=== PATIENT | female | born 1930 | race Caucasian/White ===

== ENCOUNTER → 2016-06-23 | Outpatient (CLI) | payer MEDICARE, BC ==
[~2016-06-23] MED LIST: CETI10CA; CHLO50TA15; DOCU-144; DULR; LISI20TA11; MAGN400O4; MELA3TAB17; OXYC-281; RTPRO5; TERI2.4P SC; TYL325; advair diskus; fleets enema
--- NOTE | 2016-06-23 09:13 | RADRPT ---
PROCEDURE: US Renal CLINICAL INDICATION: Hypertension, hyponatremia. TECHNIQUE: Multiple sonographic images of the kidneys and bladder were obtained. Evaluation of th e kidneys and bladder was performed as well with ricketts scale and color and Doppler evaluation using a curved array transducer. The images were reviewed on a high-resolution PACS workstation. COMPARISON: CT abdomen pelvis from 12/14/2013. FINDINGS: The right kidney measures 9.3 cm. The left kidney measures 9.6 cm. There is normal echogenicity within the parenchyma of the kidneys bilaterally. There are no masses or abnormal calcifications. There is an extrarenal pelvis on the left. This is seen on the CT is 12/14/2013. No definite hydronephrosis.. No perinephric fluid collection is seen. The patient was unable to void for this study. IMPRESSION: 1. Unremarkable renal ultrasound. No masses, abnormal calcifications or hydronephrosis. RPTAT: [facility] Physician Gopi Date Time Electronically viewed and signed by Physician Gopi on 06/23/2016 09:13 /
[2016-06-23 09:43] LABS: ADD UMIC YES; URINE BILIRUBIN (Dip) NEGATIVE (NEGATIVE); URINE BLOOD (Dip) NEGATIVE (NEGATIVE); URINE COLOR LT. YELLOW (YELLOW); URINE GLUCOSE (Dip) NEGATIVE (NEGATIVE); URINE KETONES (Dip) NEGATIVE (NEGATIVE); URINE LEUKOCYTE ESTERASE (Dip) 2+ (NEGATIVE); URINE NITRITE (Dip) NEGATIVE (NEGATIVE); URINE TOTAL PROTEIN (Dip) NEGATIVE (NEGATIVE); URINE UROBILINOGEN (Dip) 0.2 E.U./dL (0.1-1.0)
[2016-06-23 09:45] LABS: BASOPHILS % 0.8 % (0.0-2.0); EOSINOPHILS # 0.2 10^3/ul (0.0-0.5); EOSINOPHILS % 3.3 % (0.0-7.0); HEMATOCRIT 32.2 % (37.0-47.0); HEMOGLOBIN 10.8 g/dl (12.0-16.0); LYMPHOCYTES # 0.7 10^3/ul (0.8-2.9); LYMPHOCYTES % 14.6 % (15.0-51.0); MEAN CORPUSCULAR HEMOGLOBIN 29.4 pg (29.0-33.0); MEAN CORPUSCULAR HGB CONC 33.7 g/dl (32.0-37.0); MEAN CORPUSCULAR VOLUME 87.3 fl (82.0-101.0); MEAN PLATELET VOLUME 5.7 fl (7.4-10.4); MONOCYTE # 0.3 10^3/ul (0.3-0.9); MONOCYTES % 6.5 % (0.0-11.0); NEUTROPHIL # 3.7 10^3/ul (1.6-7.5); NEUTROPHILS % 74.8 % (39.0-77.0); PLATELET COUNT 381 10^3/UL (140-440); RED BLOOD COUNT 3.69 10^6/ul (4.20-5.40)
[2016-06-23 09:50] LABS: ALBUMIN 3.9 g/dl (3.3-4.9); CHLORIDE 99 mmol/L (97-110); CONDITION 1; POTASSIUM 4.2 mmol/L (3.5-5.1); SODIUM 136 mmol/L (135-144)
[2016-06-23 09:52] LABS: CREATININE 0.72 mg/dl (0.44-1.00)
[2016-06-23 09:53] LABS: ALANINE AMINOTRANSFERASE 28 IU/L (13-69); ALBUMIN/GLOBULIN RATIO 1.18; ALKALINE PHOSPHATASE 48 IU/L (42-121); ANION GAP 14 (8-16); ASPARTATE AMINO TRANSFERASE 28 IU/L (15-46); BILIRUBIN,INDIRECT 0.6 mg/dl (0-1.1); BILIRUBIN,TOTAL 0.6 mg/dl (0.2-1.3); BLOOD UREA NITROGEN 11 mg/dl (7-20); CARBON DIOXIDE 27 mmol/L (21-31); GLUCOSE 85 mg/dl (70-220); TOTAL PROTEIN 7.2 g/dl (6.1-8.1)
[2016-06-23 09:54] LABS: CALCIUM 9.2 mg/dl (8.4-10.2)
[2016-06-23 10:01] LABS: URINE RBCS NONE SEEN /HPF ([, 0])
[2016-06-23 10:02] LABS: BACTERIA,URINE FEW
--- NOTE | 2016-06-23 11:06 | RADRPT ---
PROCEDURE: US Pelvis. CLINICAL INDICATION: Pelvic pain. Hypertension and hyponatremia. TECHNIQUE: The pelvis was evaluated with transabdominal sonography in the axial and sagittal plane s. COMPARISON: No prior study is available for comparison. FINDINGS: This is a limited study with the uterus and ovaries not visualized. There is no large pelvic mass o r free fluid. IMPRESSION: 1. Limited study. Uterus and ovaries not visualized. 2. No large pelvic mass or free fluid. RPTAT: QQ .Ancelmo Masters MD, Date Time Electronically viewed and signed by .Ancelmo Masters MD, on 06/23/2016 11:06 .R/
[2016-06-24 14:51] LABS: MICROALBUMIN 0.8 mg/dL
== END | disposition home or self-care (01) ==
LOC: U/S 07:57
PROVIDERS: ATTEND Internal Medicine Nephrology
DX: I12.9 Hypertensive chronic kidney disease with stage 1 through stage 4 chronic kidney disease, or unspecified chronic kidney disease (principal); E87.1 Hypo-osmolality and hyponatremia; N18.9 Chronic kidney disease, unspecified; R10.2 Pelvic and perineal pain
CPT/HCPCS: 76775; 76856; 80053; 81001; 81003; 82043; 82652; 83930; 83935; 84300; 84443; 85025

== ENCOUNTER 2018-12-21 09:16 | Inpatient (IN) | payer BC, MEDICARE ==
[~2018-12-21] VITALS: Ht 165.1 cm; Wt 65.0 kg
[~2018-12-21 09:16] MED LIST changes: +BISA10SU75; -CHLO50TA15; -DULR; +HYG50; +LISI-471; -LISI20TA11; +MAGN400O19; -MAGN400O4
[2018-12-21] MEDS ORDERED: AZITHROMYCIN 500MG/NS (PMX) 250 ML IV STA (09:28)
[2018-12-21] MEDS ORDERED: SOD CHLORIDE 0.9% 500 ML IV STA (09:28)
[2018-12-21] MEDS ORDERED: CEFTRIAXONE 1 GM/50 ML (PMX) 50 ML IVPB STA (09:28)
[2018-12-21] MEDS ORDERED: ALBUTEROL 0.083% (NEB) 2.5 MG/3 ML AMP INH ONE (09:30)
[2018-12-21] MEDS ORDERED: IPRATROPIUM (NEB) 0.5 MG/2.5 ML AMP INH ONE (09:30)
[2018-12-21] MEDS ORDERED: ALEN70TA5 PO (11:56)
[2018-12-21] MEDS ORDERED: LOSA100T15 PO (11:57)
[2018-12-21] MEDS ORDERED: METO-319 PO (11:57)
[2018-12-21] MEDS ORDERED: SPIR25TA PO (11:58)
[2018-12-21] MEDS ORDERED: TIOT18CA INHALATION (11:58)
[2018-12-21] MEDS ORDERED: GABA-526 PO (11:59)
[2018-12-21] MEDS ORDERED: ONDANSETRON 4 MG INJ IV PRN ×2 (12:00→16:00)
[2018-12-21] MEDS ORDERED: ACETAMINOPHEN 325 MG TAB PO PRN (12:00)
[2018-12-21] MEDS ORDERED: ALBU90AE INHALATION (12:04)
--- NOTE | 2018-12-21 12:20 | ERD ---
ER Documentation Chief Complaint Chief Complaint sob and coughing with congestion for a few days. low room air sats. no cp HPI Very pleasant 88-year-old female with a history of COPD who presents to the emergency room with several days of generalized malaise, subjective fevers and productive cough. The patient notes approximately 1 week of symptoms but not better with oral antibiotics. She does not know the name of the antibiotic. EMS notes the patient's oxygen saturation was in the mid 80s on room air. The patient denies any chest pain or pleuritic pain. ROS All systems reviewed and are negative except as per history of present illness. Medications Home Meds Reported Medications Albuterol Sulfate (Proair Respiclick) 90 Mcg Aer.pow.ba, 1 PUFF INHALATION Q4 PRN for SHORTNESS OF BREATH, #1 BOTTLE 12/21/18 Gabapentin* (Gabapentin*) 600 Mg Tablet, 600 MG PO TID, #90 TAB 12/21/18 Tiotropium [place]* (Spiriva*) 18 Mcg Cap.w.dev, 1 CAP INHALATION DAILY, #30 CAP 12/21/18 Spironolactone* (Aldactone*) 25 Mg Tablet, 25 MG PO DAILY, #30 TAB 12/21/18 Losartan Potassium* (Losartan Potassium*) 100 Mg Tablet, 100 MG PO DAILY, TAB 12/21/18 Metoprolol Succinate* (Toprol XL*) 50 Mg Tab.er.24h, 50 MG PO DAILY, #30 TAB 12/21/18 Alendronate Sodium* (Fosamax*) 70 Mg Tablet, 70 MG PO Q7D, #4 TAB 12/21/18 Discontinued Reported Medications Albuterol Sulfate* (Proventil* Neb) 0.5% Nebu 12/14/13 Melatonin (Melatonin) 3 Mg Tablet.sa, prn 12/14/13 Acetaminophen* (Acetaminophen*) 325 Mg Tab 12/14/13 Oxycodone Hcl-Acetaminophen* (Percocet*) 5-325 Mg Tablet 12/14/13 Oxycodone Hcl-Acetaminophen* (Percocet*) 5-325 Mg Tablet, prn 12/14/13 Magnesium Hydroxide* (Milk Of Magnesia*) 400 Mg/5 Ml Oral.susp, prn 12/14/13 [fleets enema] No Conflict Check 12/14/13 Bisacodyl* (Bisacodyl*) 10 Mg Supp, daily 12/14/13 Cetirizine Hcl* (Zyrtec*) 10 Mg Capsule, 10mg 12/14/13 Lisinopril* (Lisinopril*) 20 Mg Tablet, daily 12/14/13 Teriparatide (Forteo) 2.4 Ml Pen.injctr, SC daily 12/14/13 Docusate Sodium* (Colace*) 100 Mg Capsule, daily 12/14/13 Chlorthalidone* (Chlorthalidone*) 50 Mg Tablet, q daily 12/14/13 [advair diskus] No Conflict Check, daily 12/14/13 Allergies Allergies: Coded Allergies: Penicillins (Verified Allergy, Severe, RASH, 12/21/18) codeine (Verified Allergy, Unknown, 12/21/18) PMhx/Soc History of Surgery: Yes (s/p ORIF 09/2013 RLE) Anesthesia Reaction: No Hx Neurological Disorder: Yes (NEUROPATHY BOTH FEET) Hx Respiratory Disorders: Yes (ASTHMA, COPD) Hx Cardiac Disorders: Yes (PT. HAS HYPERTENSION) Hx Psychiatric Problems: No Hx Miscellaneous Medical Probl: Yes (HTN, osteoporosis, UTI, asthma, neuropathy) Hx Alcohol Use: Yes (SOBER FOR 19 YRS.) Hx Substance Use: No Hx Tobacco Use: No Smoking Status: Never smoker FmHx Family History: No diabetes Physical Exam Vitals Vital Signs Date Temp Pulse Resp B/P (MAP) Pulse Ox O2 O2 Flow FiO2 Time Delivery Rate 12/21/18 Nasal 10:19 Cannula 12/21/18 86 20 90 21 10:02 12/21/18 98.8 90 20 170/80 98 09:34 (110) Physical Exam General: Well developed, well nourished, no acute distress Head: Normocephalic, atraumatic. Eyes: Pupils equally reactive, EOM intact ENT: Moist mucous membranes Neck: Supple, no lymphadenopathy Respiratory: fairly significant wheezing and rhonchi but no significant distress Cardiovascular: RRR, no murmurs, rubs, or gallops Abdominal: Soft, non-tender, non-distended, no peritoneal signs : Deferred MSK: No edema, no unilateral swelling, 5/5 strength Neurologic: Alert and oriented, moving all extremities, normal speech, no focal weakness, no cerebellar signs Skin: No rash Psych: Normal mood Result Diagram: 7/5/19 1014 12/21/18 1014 Results 24 hrs Laboratory Tests Test 12/21/18 10:14 12/21/18 11:26 White Blood Count 7.4 10^3/ul Red Blood Count 4.17 10^6/ul Hemoglobin 12.3 g/dl Hematocrit 36.0 % Mean Corpuscular Volume 86.3 fl Mean Corpuscular Hemoglobin 29.5 pg Mean Corpuscular Hemoglobin Concent 34.2 g/dl Red Cell Distribution Width 13.4 % Platelet Count 355 10^3/UL Mean Platelet Volume 7.9 fl Immature Granulocytes % 0.400 % Neutrophils % 77.3 % Lymphocytes % 9.5 % Monocytes % 7.6 % Eosinophils % 4.3 % Basophils % 0.9 % Nucleated Red Blood Cells % 0.0 /100WBC Immature Granulocytes # 0.030 10^3/ul Neutrophils # 5.7 10^3/ul Lymphocytes # 0.7 10^3/ul Monocytes # 0.6 10^3/ul Eosinophils # 0.3 10^3/ul Basophils # 0.1 10^3/ul Nucleated Red Blood Cells # 0.0 10^3/ul Sodium Level 124 mmol/L Potassium Level 4.5 mmol/L Chloride Level 85 mmol/L Carbon Dioxide Level 27 mmol/L Anion Gap 12 Blood Urea Nitrogen 8 mg/dl Creatinine 0.54 mg/dl Est Glomerular Filtrat Rate mL/min mL/min Glucose Level 126 mg/dl Calcium Level 8.9 mg/dl Troponin I < 0.012 ng/ml Lactic Acid Level 0.9 mmol/L Current Medications Medications Dose Sig/Rashad Start Time Status Last (Trade) Ordered Route PRN Stop Time Admin Dose Reason Admin Sodium 500 ml @ Q1H STAT 12/21/18 DC 12/21/18 Chloride 500 mls/hr IV 09:28 12/21/18 10:40 10:27 Albuterol 2.5 mg ONCE ONCE 12/21/18 DC 12/21/18 (Proventil INH 09:30 12/21/18 10:01 0.083% (Neb)) 09:31 Ipratropium 0.5 mg ONCE ONCE 12/21/18 DC 12/21/18 [place] INH 09:30 12/21/18 10:01 (Atrovent 09:31 0.02% (Neb)) Azithromycin 250 ml @ ONCE STAT 12/21/18 DC 12/21/18 250 mls/hr IV 09:28 12/21/18 11:30 10:27 Ceftriaxone 50 ml @ ONCE STAT 12/21/18 DC 12/21/18 Sodium 100 mls/hr IVPB 09:28 12/21/18 10:41 09:57 Ondansetron 4 mg BRIDGE ORDER 12/21/18 HCl (Zofran PRN IV 12:00 12/22/18 Inj) NAUSEA/VOMITI 11:59 NG 650 mg ER BRIDGE 12/21/18 Acetaminophen PRN PO 12:00 12/22/18 (Tylenol .MILD PAIN 11:59 Tab) 1-3 OR TEMP Procedures/MDM EKG, MONITORS, & DIAGNOSTIC IMAGING: EKG: I reviewed and interpreted a 12-lead EKG. Rhythm: Normal sinus rhythm ST Changes: No contiguous ST segment elevations T waves: No contiguous T wave inversions Impression: No evidence of acute cardiac ischemia cxr IMPRESSION: Hypoventilatory changes with bibasilar opacities favoring atelectasis, including alongside moderate hiatal hernia.. No definite superimposed infiltrate or overt CHF. No pneumothorax. Aortic atherosclerotic calcification. RPTAT: [facility] LAB INTERPRETATION: I reviewed the laboratory testing and it shows no evidence of acute process MEDICAL DECISION MAKING: The patient's presentation is very consistent with likely COPD exacerbation with possible community acquired pneumonia. The patient does not have Sirs criteria. However, the patient will benefit from IV antibiotics, blood cultures and inpatient hospitalization. Patient's low oxygen saturation makes outpatient treatment unlikely. ER COURSE: * The patient continues to be well-appearing, she received breathing treatment, steroids. * The patient's laboratory testing is reassuring. The patient received broad- spectrum antibiotics to cover community acquired pneumonia. * Again, patient does not meet sepsis criteria in the emergency room setting. IV fluids initiated. Blood cultures prior to antibiotics. CONSULTATION: None DISPOSITION PLAN: Accepting care team and consultations: I discussed the current laboratory data, diagnostic imaging and emergency care provided. Admitting team: Panel team Admitting team indication: Insurance directed Departure Diagnosis: Primary Impression: COPD with exacerbation Additional Impressions: Community acquired pneumonia Laterality: unspecified laterality Qualified Codes: J18.9 - Pneumonia, unspecified organism Hyponatremia Condition: Stable ALLISON CALVILLO MD Dec 21, 2018 12:19
[2018-12-21] MEDS ORDERED: DEXAMETHASONE 10 MG/ML 1 ML INJ IV ONE (12:30)
[2018-12-21 13:43] VITALS: BP 161/79; PULSE 100; RESP 22
[2018-12-21 15:32] VITALS: Ht 165.1 cm; Wt 65.0 kg
[2018-12-21] MEDS ORDERED: NACL 0.9% 3 ML SYG IV SCH (16:00)
--- NOTE | 2018-12-21 16:05 | HP ---
Date/Time of Note Date/Time of Note DATE: 12/21/18 TIME: 15:56 Assessment/Plan VTE Prophylaxis Pharmacological prophylaxis: heparin Lines/Catheters IV Catheter Type (from [facility]): Saline Lock Assessment/Plan Hospital Course Assessment and plan 1. COPD with exacerbation. Started on breathing treatments. Will consider starting steroid medication should breathing worsen. Continue on O2. Monitor for improvement. 2. Community acquired pneumonia. Started on antibiotics. Follow-up chest imaging as needed. Will check sputum cultures. Antitussives as needed for cough 3. Reported history of asthma and allergies. continue bronchodilators 4. History of neuropathy. Continue Neurontin. 5. Hypertension. Continue antihypertensives. Will adjust as needed 6. Dyspnea secondary to #1 #2. Follow-up on echo. Continue on O2. Patient with suspected cardiac history. Discussed POC with Dr. Green Result Diagram: 12/21/18 1014 12/21/18 1014 Results 24hrs Laboratory Tests Test 12/21/18 10:14 12/21/18 11:26 12/21/18 13:37 White Blood Count 7.4 # Red Blood Count 4.17 L Hemoglobin 12.3 Hematocrit 36.0 L Mean Corpuscular Volume 86.3 Mean Corpuscular Hemoglobin 29.5 Mean Corpuscular Hemoglobin Concent 34.2 Red Cell Distribution Width 13.4 Platelet Count 355 Mean Platelet Volume 7.9 # Immature Granulocytes % 0.400 Neutrophils % 77.3 H Lymphocytes % 9.5 L Monocytes % 7.6 Eosinophils % 4.3 Basophils % 0.9 Nucleated Red Blood Cells % 0.0 Immature Granulocytes # 0.030 Neutrophils # 5.7 Lymphocytes # 0.7 L Monocytes # 0.6 Eosinophils # 0.3 Basophils # 0.1 Nucleated Red Blood Cells # 0.0 Sodium Level 124 L Potassium Level 4.5 Chloride Level 85 L Carbon Dioxide Level 27 Anion Gap 12 Blood Urea Nitrogen 8 Creatinine 0.54 Est Glomerular Filtrat Rate mL/min Glucose Level 126 Calcium Level 8.9 Troponin I < 0.012 Lactic Acid Level 0.9 1.2 HPI/ROS Admit Date/Time Admit Date/Time Dec 21, 2018 at 11:58 Hx of Present Illness This is an 88-year-old female with history of asthma, flu B, hypertension, neuropathy, allergies, came to the hospital with reports of decreased breath. Patient reports that she had been having cough for the past 3 months but notably increased shortness of breath more notable on exertion for the past week. Associated with that she also had decreased poor oral intake. She denies any chest pain. She denies any subjective fevers. Due to worsening of breathing she came to the hospital for further evaluation. She did have chest x-ray done that did show to have elevated liver changes and bibasilar opacities. Findings suspect consistent with pneumonia. Denies any history of heart failure. On labs no leukocytosis noted. No fever seen as well. She was slightly hypertensive with blood pressure as high as 161/79. During interview she was notably with wheezing and reactive cough. She does report that her breathing since her breathing treatments in the ER. We will evaluate her for the aformentiond issues. ROS 12 point review of systems obtained and entirely negative except as mentioned in history of present illness PMH/Family/Social Past Medical History Medical/surgical history 1. Asthma 2. COPD 3. Seasonal allergies 4. Right femur fracture status post surgery 5. Neuropathy 6. Uterine prolapse Medications Current Medications Ondansetron HCl (Zofran Inj) 4 mg BRIDGE ORDER PRN IV NAUSEA/VOMITING; Start 12/21/18 at 12:00; Stop 12/22/18 at 11:59 Acetaminophen (Tylenol Tab) 650 mg ER BRIDGE PRN PO .MILD PAIN 1-3 OR TEMP; Start 12/21/18 at 12:00; Stop 12/22/18 at 11:59 Alendronate Sodium (Fosamax) 70 mg Q7D PO ; Start 12/21/18 at 16:00; Status UNV Gabapentin (Neurontin) 600 mg TID PO ; Start 12/21/18 at 21:00 Losartan Potassium (Cozaar) 100 mg DAILY PO ; Start 12/22/18 at 09:00 Metoprolol Succinate (Toprol Xl) 50 mg DAILY PO ; Start 12/22/18 at 09:00 Spironolactone (Aldactone) 25 mg DAILY PO ; Start 12/22/18 at 09:00 Tiotropium [place] (Spiriva) 1 inh DAILY INH ; Start 12/22/18 at 09:00 IV Flush (NS 3 ml) 3 ml PER PROTOCOL IV ; Start 12/21/18 at 16:00; Status UNV Ondansetron HCl (Zofran Inj) 4 mg Q6H PRN IV NAUSEA/VOMITING; Start 12/21/18 at 16:00; Status UNV Acetaminophen (Tylenol Tab) 650 mg Q6H PRN PO .PAIN 1-3 OR TEMP; Start 12/21/18 at 16:00; Status UNV Famotidine (Pepcid Iv) 20 mg Q12 IV ; Start 12/22/18 at 09:00; Status UNV Heparin Sodium (Porcine) (Heparin (5000 Units/1ml)) 5,000 unit Q8 SC ; Start 12/21/18 at 22:00; Status UNV Levofloxacin/ Dextrose 150 ml @ 100 mls/hr Q24H IVPB ; Start 12/21/18 at 16:00; Status UNV Albuterol/ Ipratropium (Duoneb) 3 ml Q6HWA RESP THERAPY HHN ; Start 12/21/18 at 20:00; Status UNV Albuterol/ Ipratropium (Duoneb) 3 ml Q2H RESP THERAPY PRN HHN sob; Start 12/21/18 at 16:00; Status UNV Guaifenesin (Robitussin Liquid Cup) 200 mg Q4H PRN PO cough; Start 12/21/18 at 16:00; Status UNV Coded Allergies: Penicillins (Verified Allergy, Severe, RASH, 12/21/18) codeine (Verified Allergy, Unknown, 12/21/18) Family History Significant Family History: no pertinent family hx Social History Alcohol Use: other (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) Smoking Status: Never smoker Exam/Review of Systems Vital Signs Vitals Vital Signs Date Temp Pulse Resp B/P (MAP) Pulse Ox O2 O2 Flow FiO2 Time Delivery Rate 12/21/18 98.4 100 22 161/79 91 13:43 (106) 12/21/18 Nasal 3.0 12:56 Cannula 12/21/18 21 10:02 Exam Constitutional: alert, oriented Psych: nl mood/affect Head: normocephalic Eyes: nl conjunctiva Neck: supple, non-tender Respiratory: clear to auscultation Cardiovascular: regular rate and rhythm Gastrointestinal: soft, non-tender Musculoskeletal: nl extremities to inspection Neurological: AIRWAY CONTROLLER II-XII intact, nl mental status, nl speech Skin: other (rash under left/right breast ) ARLETTE CHRISTY NP Dec 21, 2018 16:05
[2018-12-21] MEDS ORDERED: LEVOFLOXACIN 750MG/D5W (PMX) 150 ML IVPB SCH (17:00)
[2018-12-21] MEDS: SOD CHLORIDE 0.9% 1,000 ML IV SCH (17:18)
[2018-12-21] MEDS: ACETAMINOPHEN 325 MG TAB PO PRN ×2 (17:19→23:35)
[2018-12-21 19:34] VITALS: BP 144/73; PULSE 96; RESP 15
[2018-12-21] MEDS ORDERED: ALBUTEROL/IPRATROPIUM (NEB) 3 ML AMP HHN SCH (20:00)
[2018-12-21] MEDS: GABAPENTIN 300 MG CAP PO SCH (21:00)
[2018-12-21] MEDS: NYSTATIN 30 GM POWDER BTL TOP SCH (21:01)
[2018-12-21] MEDS: ALBUTEROL/IPRATROPIUM (NEB) 3 ML AMP HHN SCH (21:04)
[2018-12-21] MEDS: GUAIFENESIN 20 MG/ML 5ML CUP PO PRN (21:26)
[2018-12-21] MEDS: HEPARIN 5,000 UNIT/1 ML VIAL SC SCH (21:29)
[2018-12-22] MEDS: ALBUTEROL/IPRATROPIUM (NEB) 3 ML AMP HHN SCH ×4 (01:49→22:30)
[2018-12-22 02:06] VITALS: BP 137/71; PULSE 96; RESP 16
[2018-12-22] MEDS: HEPARIN 5,000 UNIT/1 ML VIAL SC SCH ×3 (05:54→21:39)
[2018-12-22] MEDS: SOD CHLORIDE 0.9% 1,000 ML IV SCH ×3 (06:18→20:36)
[2018-12-22] MEDS ORDERED: VANCOMYCIN IV PER PHARMACY XX SCH (07:00)
[2018-12-22 07:40] VITALS: BP 154/73; PULSE 91; RESP 20
[2018-12-22] MEDS: FLUTICASONE/VILANTEROL 100-25 INH SCH (08:54)
[2018-12-22] MEDS: SPIRONOLACTONE 25 MG TAB PO SCH (08:54)
[2018-12-22] MEDS: GABAPENTIN 300 MG CAP PO SCH ×3 (08:54→21:36)
[2018-12-22] MEDS: TIOTROPIUM 18 MCG CAPSULE INHA DEV INH SCH (08:54)
[2018-12-22] MEDS: FAMOTIDINE 20 MG INJ IV SCH ×2 (08:54→21:35)
[2018-12-22] MEDS: LOSARTAN 50 MG TAB PO SCH (08:55)
[2018-12-22] MEDS: METOPROLOL (XL) 50 MG TAB PO SCH (08:55)
[2018-12-22] MEDS: NYSTATIN 30 GM POWDER BTL TOP SCH ×2 (08:56→21:36)
[2018-12-22] MEDS ORDERED: VANCOMYCIN HCL 1.25 GM in SOD CHLORIDE 0.9% 250 ML IVPB SCH (09:00)
[2018-12-22] MEDS: ALBUTEROL/IPRATROPIUM (NEB) 3 ML AMP HHN PRN (10:37)
[2018-12-22 13:14] VITALS: BP 143/67; PULSE 94; RESP 19
[2018-12-22] MEDS: SODIUM CHLORIDE 1 GM TAB PO SCH ×2 (13:23→21:35)
--- NOTE | 2018-12-22 13:57 | PN ---
Date/Time of Note Date/Time of Note DATE: 12/22/18 TIME: 13:52 Assessment/Plan VTE Prophylaxis Risk score (from Ns)>0 risk: 7 SCD applied (from Ns): Yes Pharmacological prophylaxis: heparin Lines/Catheters IV [facility] Saline Lock Urinary Cath still in place: No Assessment/Plan Hospital Course Assessment and plan 1. COPD with exacerbation. continue on breathing treatments. Will consider starting steroid medication should breathing worsen. Continue on O2. Monitor for improvement. 2. Community acquired pneumonia. Started on antibiotics. Follow-up chest i maging as needed. sputum cultures pending. Antitussives as needed for cough 3. Reported history of asthma and allergies. continue bronchodilators 4. History of neuropathy. Continue Neurontin. 5. Hypertension. Continue antihypertensives. Will adjust as needed 6. Dyspnea secondary to #1 #2. Follow-up on echo. Continue on O2. Patient with suspected cardiac history. Dispo/Plan: continue breathing tx. continue antitussives. PT eval pending. monitor for improvement Discussed POC with Dr. Green Result Diagram: 12/22/18 0509 12/22/18 0509 Results 24hrs Laboratory Tests Test 12/22/18 05:09 White Blood Count 4.6 #L Red Blood Count 3.88 L Hemoglobin 11.5 L Hematocrit 33.0 L Mean Corpuscular Volume 85.1 Mean Corpuscular Hemoglobin 29.6 Mean Corpuscular Hemoglobin Concent 34.8 Red Cell Distribution Width 13.3 Platelet Count 320 Mean Platelet Volume 8.2 Immature Granulocytes % 0.900 H Neutrophils % 73.8 Lymphocytes % 11.9 L Monocytes % 13.0 H Eosinophils % 0.0 Basophils % 0.4 Nucleated Red Blood Cells % 0.0 Immature Granulocytes # 0.040 H Neutrophils # 3.4 Lymphocytes # 0.5 L Monocytes # 0.6 Eosinophils # 0.0 Basophils # 0.0 Nucleated Red Blood Cells # 0.0 Sodium Level 125 L Potassium Level 4.1 Chloride Level 90 L Carbon Dioxide Level 24 Anion Gap 11 Blood Urea Nitrogen 7 Creatinine 0.55 Est Glomerular Filtrat Rate mL/min Glucose Level 108 Hemoglobin A1c 5.0 Calcium Level 8.6 Phosphorus Level 2.6 Magnesium Level 1.8 Total Bilirubin 0.8 Direct Bilirubin 0.00 Indirect Bilirubin 0.8 Aspartate Amino Transf (AST/SGOT) 28 Alanine Aminotransferase (ALT/SGPT) 28 Alkaline Phosphatase 41 L Total Protein 6.7 Albumin 3.6 Globulin 3.10 Albumin/Globulin Ratio 1.16 Triglycerides Level 46 Cholesterol Level 125 LDL Cholesterol, Calculated 49 HDL Cholesterol 67 Cholesterol/HDL Ratio 1.8 Thyroid Stimulating Hormone (TSH) 1.480 Free Thyroxine Index 2.69 Thyroxine (T4) 6.7 Triiodothyronine (T3) Uptake 40.1 Subjective 24 Hr Interval Summary Free Text/Dictation with better breathing. no s/s of distress Exam/Review of Systems Exam Vitals Vital Signs Date Temp Pulse Resp B/P (MAP) Pulse Ox O2 O2 Flow FiO2 Time Delivery Rate 12/22/18 98.7 94 19 143/67 94 13:14 (92) 12/22/18 2.0 10:39 12/22/18 Nasal 10:39 Cannula 12/21/18 21 10:02 Intake and Output 12/21/18 12/21/18 12/22/18 1515:00 23:00 07:00 IntakeIntake Total 800 ml 390 ml 700 ml BalanceBalance 800 ml 390 ml 700 ml Exam Constitutional: alert, oriented Psych: nl mood/affect Head: normocephalic Eyes: nl conjunctiva Neck: supple, non-tender Respiratory: clear to auscultation Cardiovascular: regular rate and rhythm Gastrointestinal: soft, non-tender Musculoskeletal: nl extremities to inspection 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, nl mental status, nl speech Skin: other (rash under left/right breast ) Results Results 24hrs Laboratory Tests Test 12/22/18 05:09 White Blood Count 4.6 #L Red Blood Count 3.88 L Hemoglobin 11.5 L Hematocrit 33.0 L Mean Corpuscular Volume 85.1 Mean Corpuscular Hemoglobin 29.6 Mean Corpuscular Hemoglobin Concent 34.8 Red Cell Distribution Width 13.3 Platelet Count 320 Mean Platelet Volume 8.2 Immature Granulocytes % 0.900 H Neutrophils % 73.8 Lymphocytes % 11.9 L Monocytes % 13.0 H Eosinophils % 0.0 Basophils % 0.4 Nucleated Red Blood Cells % 0.0 Immature Granulocytes # 0.040 H Neutrophils # 3.4 Lymphocytes # 0.5 L Monocytes # 0.6 Eosinophils # 0.0 Basophils # 0.0 Nucleated Red Blood Cells # 0.0 Sodium Level 125 L Potassium Level 4.1 Chloride Level 90 L Carbon Dioxide Level 24 Anion Gap 11 Blood Urea Nitrogen 7 Creatinine 0.55 Est Glomerular Filtrat Rate mL/min Glucose Level 108 Hemoglobin A1c 5.0 Calcium Level 8.6 Phosphorus Level 2.6 Magnesium Level 1.8 Total Bilirubin 0.8 Direct Bilirubin 0.00 Indirect Bilirubin 0.8 Aspartate Amino Transf (AST/SGOT) 28 Alanine Aminotransferase (ALT/SGPT) 28 Alkaline Phosphatase 41 L Total Protein 6.7 Albumin 3.6 Globulin 3.10 Albumin/Globulin Ratio 1.16 Triglycerides Level 46 Cholesterol Level 125 LDL Cholesterol, Calculated 49 HDL Cholesterol 67 Cholesterol/HDL Ratio 1.8 Thyroid Stimulating Hormone (TSH) 1.480 Free Thyroxine Index 2.69 Thyroxine (T4) 6.7 Triiodothyronine (T3) Uptake 40.1 Medications Medication Current Medications Alendronate Sodium (Fosamax) 70 mg Mo@0630 PO ; Start 12/24/18 at 06:30 Gabapentin (Neurontin) 600 mg TID PO Last administered on 12/22/18at 13:23; Admin Dose 600 MG; Start 12/21/18 at 21:00 Losartan Potassium (Cozaar) 100 mg DAILY PO Last administered on 12/22/18at 08:55; Admin Dose 100 MG; Start 12/22/18 at 09:00 Metoprolol Succinate (Toprol Xl) 50 mg DAILY PO Last administered on 12/22/18at 08:55; Admin Dose 50 MG; Start 12/22/18 at 09:00 Spironolactone (Aldactone) 25 mg DAILY PO Last administered on 12/22/18at 08:54; Admin Dose 25 MG; Start 12/22/18 at 09:00 Tiotropium [place] (Spiriva) 1 inh DAILY INH Last administered on 12/22/18at 08:54; Admin Dose 1 INH; Start 12/22/18 at 09:00 IV Flush (NS 3 ml) 3 ml PER PROTOCOL IV ; Start 12/21/18 at 16:00 Ondansetron HCl (Zofran Inj) 4 mg Q6H PRN IV NAUSEA/VOMITING; Start 12/21/18 at 16:00 Acetaminophen (Tylenol Tab) 650 mg Q6H PRN PO .PAIN 1-3 OR TEMP Last administered on 12/21/18at 23:35; Admin Dose 650 MG; Start 12/21/18 at 16:00 Famotidine (Pepcid Iv) 20 mg Q12 IV Last administered on 12/22/18 08:54; Admin Dose 20 MG; Start 12/22/18 at 09:00 Heparin Sodium (Porcine) (Heparin (5000 Units/1ml)) 5,000 unit Q8 SC Last administered on 12/22/18 13:27; Admin Dose 5,000 UNIT; Start 12/21/18 at 22:00 Albuterol/ Ipratropium (Duoneb) 3 ml Q2H RESP THERAPY PRN HHN sob Last administered on 12/22/18 10:37; Admin Dose 3 ML; Start 12/21/18 at 16:00 Guaifenesin (Robitussin Liquid Cup) 200 mg Q4H PRN PO cough Last administered on 12/21/18 21:26; Admin Dose 200 MG; Start 12/21/18 at 16:00 Fluticasone/ Vilanterol (Breo Ellipta 100-25 Mcg Inh) 1 inh DAILY INH Last administered on 12/22/18 08:54; Admin Dose 1 INH; Start 12/22/18 at 09:00 Sodium Chloride 1,000 ml @ 70 mls/hr [id number] IV Last administered on 12/21/18 17:18; Admin Dose 70 MLS/HR; Start 12/21/18 at 16:00 Albuterol/ Ipratropium (Duoneb) 3 ml Q6H RESP THERAPY HHN Last administered on 12/22/18 01:49; Admin Dose 3 ML; Start 12/21/18 at 20:00 Nystatin (Nystatin Powder) 1 applic BID TOP Last administered on 12/22/18 08:56; Admin Dose 1 APPLIC; Start 12/21/18 at 21:00 Vancomycin HCl (Vanco Iv Per Pharmacy) VANCOMYCIN PER PHARMACY PER PROTOCOL XX ; Start 12/22/18 at 07:00 Vancomycin HCl 1.25 gm/Sodium Chloride 250 ml @ 83.333 mls/ hr ONCE@0900 IVPB Last administered on 12/22/18 08:53; Admin Dose 83.333 MLS/HR; Start 12/22/18 at 09:00; Stop 12/22/18 at 16:00 Vancomycin HCl 250 ml @ 125 mls/hr Q24H IVPB ; Start 12/23/18 at 09:00 Sodium Chloride (Nacl) 1 gm TID PO Last administered on 12/22/18at 13:23; Admin Dose 1 GM; Start 12/22/18 at 13:00 ARLETTE CHRISTY NP Dec 22, 2018 13:57
--- NOTE | 2018-12-22 17:20 | CONS ---
DATE OF ADMISSION: 12/21/2018 DATE OF CONSULTATION: 12/22/2018 TYPE OF CONSULTATION: Infectious disease. REASON FOR CONSULTATION: Antibiotic management. HISTORY OF PRESENT ILLNESS: Elsy Israel is a pleasant 88-year-old female who comes in with shortness o f breath and coughing with congestion for a number of days. She had low room air saturations, no [address] pain. Her problems include: 1. COPD. 2. Asthma. 3. Bilateral peripheral neuropathy. 4. Hypertension. 5. Osteoporosis. 6. Urinary tract infection. 7. Status post open reduction internal fixation of her right lower extremity in September 2013. Acutely, she comes in with several day history of general malaise, subjective fever, productive cough , 1 week of symptoms, but not better with oral antibiotics. Her oxygen saturation was in the mid-80s on room air. PAST MEDICAL HISTORY: As outlined. FAMILY HISTORY: Noncontributory. SOCIAL HISTORY: She does not smoke, drink or use drugs. She has been sober for 19 years. ALLERGIES: 1. PENICILLIN. 2. CODEINE. MEDICATIONS: Per chart. REVIEW OF SYSTEMS: As per HPI. PHYSICAL EXAMINATION: GENERAL: The patient is a well-developed, well-nourished female who is awake, responsive, in no acut e distress. VITAL SIGNS: Stable. She is afebrile. SKIN: Without generalized rash. HEENT: Within normal limits. NECK: Supple. LYMPH NODES: None palpable. CHEST: Decreased breath sounds at the bases with wheezing and rhonchi. HEART: Without murmur or gallop. ABDOMEN: Soft, nontender, without organosplenomegaly or masses. EXTREMITIES: Without cyanosis, clubbing, or edema. RECTAL AND GENITAL: Deferred. NEUROLOGIC: No focal neurological abnormality. ANCILLARY LABORATORY DATA: White count 7.4, with 77% neutrophils, H and H 12.3 and 36, platelet coun t 365. BUN and creatinine 8/0.54, glucose 126. HOSPITAL COURSE: The patient was thought to have community-acquired pneumonia. A chest x-ray showed changes with bibasilar opacities, favoring atelectasis, including along size moderate hiatal h ernia. No definite superimposed infiltrate or CHF. No pneumothorax. IMPRESSION AND PLAN: The patient was started on azithromycin and ceftriaxone for as noted community- acquired pneumonia. However, her blood cultures are growing gram-positive cocci in clusters, etiolog y of which is unclear. We have to consider the possibility of endocarditis. Alternatively, this cou ld be from her pneumonia as well. I do not believe she had a urine culture, urinalysis or culture. She had a respiratory culture. I will order a urine culture. She is now on vancomycin. She was giv en some Levaquin, but she is on vancomycin at this point. I will dictate my findings to the hospital ists. Dictated By: ANGELA FELIX MD, JD/NTS Conf#: [id number] DID#: [id number] CC: AMIRA ROCKWELL MD;*EndCC*
[2018-12-22 20:27] VITALS: BP 152/72; PULSE 93; RESP 17
[2018-12-22] MEDS: GUAIFENESIN 20 MG/ML 5ML CUP PO PRN (21:43)
[2018-12-23] MEDS: ACETAMINOPHEN 325 MG TAB PO PRN ×2 (00:40→23:16)
[2018-12-23 01:38] VITALS: BP 147/63; PULSE 79; RESP 22
[2018-12-23] MEDS: ALBUTEROL/IPRATROPIUM (NEB) 3 ML AMP HHN SCH ×4 (03:35→21:53)
[2018-12-23] MEDS: SOD CHLORIDE 0.9% 1,000 ML IV SCH ×3 (06:41→23:17)
[2018-12-23] MEDS: HEPARIN 5,000 UNIT/1 ML VIAL SC SCH ×3 (06:48→21:04)
[2018-12-23 07:27] VITALS: BP 173/79; PULSE 74; RESP 19
[2018-12-23 07:30] VITALS: BP 173/82; PULSE 77
[2018-12-23 08:34] VITALS: BP 166/79; PULSE 84
[2018-12-23] MEDS: FAMOTIDINE 20 MG INJ IV SCH ×2 (08:36→21:00)
[2018-12-23] MEDS: FLUTICASONE/VILANTEROL 100-25 INH SCH (08:36)
[2018-12-23] MEDS: TIOTROPIUM 18 MCG CAPSULE INHA DEV INH SCH (08:36)
[2018-12-23] MEDS: GABAPENTIN 300 MG CAP PO SCH ×3 (08:36→21:00)
[2018-12-23] MEDS: SPIRONOLACTONE 25 MG TAB PO SCH (08:37)
[2018-12-23] MEDS: METOPROLOL (XL) 50 MG TAB PO SCH (08:37)
[2018-12-23] MEDS: SODIUM CHLORIDE 1 GM TAB PO SCH ×3 (08:37→21:00)
[2018-12-23] MEDS: LOSARTAN 50 MG TAB PO SCH (08:37)
[2018-12-23] MEDS: NYSTATIN 30 GM POWDER BTL TOP SCH ×2 (08:38→21:00)
[2018-12-23] MEDS: VANCOMYCIN 1 GM 250 ML IVPB SCH (09:08)
[2018-12-23 13:25] VITALS: BP 158/72; PULSE 81; RESP 20
--- NOTE | 2018-12-23 17:15 | PN ---
Date/Time of Note Date/Time of Note DATE: 12/23/18 TIME: 16:55 Assessment/Plan VTE Prophylaxis Risk score (from Ns)>0 risk: 7 SCD applied (from Ns): Yes Pharmacological prophylaxis: heparin Lines/Catheters IV C[facility]ter Type (from [facility]): Peripheral IV Urinary Cath still in place: No Assessment/Plan Hospital Course Assessment and plan 1. COPD with exacerbation. continue on breathing treatments. Will consider starting steroid medication should breathing worsen. Continue on O2. Monitor for improvement. 2. Community acquired pneumonia. continue on antibiotics. f/u CXR. Will check sputum cultures. Antitussives as needed for cough 3. Reported history of asthma and allergies. continue bronchodilators 4. History of neuropathy. Continue Neurontin. 5. Hypertension. Continue antihypertensives. Will adjust as needed 6. Dyspnea secondary to #1 #2. Follow-up on echo result. Continue on O2. 7. Deconditioning. Continue PT services DISPO.PLAN: check f/u CXR. f/u cultures. continue abx .Await for improvement Discussed POC with Dr. Green Result Diagram: 12/22/18 0509 12/22/18 0509 Subjective 24 Hr Interval Summary Free Text/Dictation reports better breathing today. Exam/Review of Systems Exam Vitals Vital Signs Date Temp Pulse Resp B/P (MAP) Pulse Ox O2 O2 Flow FiO2 Time Delivery Rate 12/23/18 96 20 86 Nasal 2.0 14:56 Cannula 12/23/18 98.1 158/72 13:25 (100) 12/21/18 21 10:02 Intake and Output 12/22/18 12/22/18 12/23/18 1515:00 23:00 07:00 IntakeIntake Total 730 ml 640 ml 1140 ml OutputOutput Total 600 ml 600 ml BalanceBalance 730 ml 40 ml 540 ml Exam Constitutional: alert, oriented Psych: nl mood/affect Head: normocephalic Eyes: nl conjunctiva Neck: supple, non-tender Respiratory: clear to auscultation Cardiovascular: regular rate and rhythm Gastrointestinal: soft, non-tender Musculoskeletal: nl extremities to inspection Neurological: BATTERY CHARGER TESTER II-XII intact, nl mental status, nl speech Skin: other (rash under left/right breast ) Medications Medication Current Medications Alendronate Sodium (Fosamax) 70 mg Mo@0630 PO ; Start 12/24/18 at 06:30 Gabapentin (Neurontin) 600 mg TID PO Last administered on 12/23/18 14:13; Admin Dose 600 MG; Start 12/21/18 at 21:00 Losartan Potassium (Cozaar) 100 mg DAILY PO Last administered on 12/23/18 08:37; Admin Dose 100 MG; Start 12/22/18 at 09:00 Metoprolol Succinate (Toprol Xl) 50 mg DAILY PO Last administered on 12/23/18 08:37; Admin Dose 50 MG; Start 12/22/18 at 09:00 Spironolactone (Aldactone) 25 mg DAILY PO Last administered on 12/23/18 08:37; Admin Dose 25 MG; Start 12/22/18 at 09:00 Tiotropium [place] (Spiriva) 1 inh DAILY INH Last administered on 12/23/18 08:36; Admin Dose 1 INH; Start 12/22/18 at 09:00 IV Flush (NS 3 ml) 3 ml PER PROTOCOL IV ; Start 12/21/18 at 16:00 Ondansetron HCl (Zofran Inj) 4 mg Q6H PRN IV NAUSEA/VOMITING; Start 12/21/18 at 16:00 Acetaminophen (Tylenol Tab) 650 mg Q6H PRN PO .PAIN 1-3 OR TEMP Last administered on 12/23/18 00:40; Admin Dose 650 MG; Start 12/21/18 at 16:00 Famotidine (Pepcid Iv) 20 mg Q12 IV Last administered on 12/23/18 08:36; Admin Dose 20 MG; Start 12/22/18 at 09:00 Heparin Sodium (Porcine) (Heparin (5000 Units/1ml)) 5,000 unit Q8 SC Last administered on 12/23/18 14:18; Admin Dose 5,000 UNIT; Start 12/21/18 at 22:00 Albuterol/ Ipratropium (Duoneb) 3 ml Q2H RESP THERAPY PRN HHN sob Last ad ministered on 12/22/18 10:37; Admin Dose 3 ML; Start 12/21/18 at 16:00 Guaifenesin (Robitussin Liquid Cup) 200 mg Q4H PRN PO cough Last administered on 12/22/18 21:43; Admin Dose 200 MG; Start 12/21/18 at 16:00 Fluticasone/ Vilanterol (Breo Ellipta 100-25 Mcg Inh) 1 inh DAILY INH Last administered on 12/23/18 08:36; Admin Dose 1 INH; Start 12/22/18 at 09:00 Sodium Chloride 1,000 ml @ 70 mls/hr [id number] IV Last administered on 12/23/18 06:41; Admin Dose 70 MLS/HR; Start 12/21/18 at 16:00 Albuterol/ Ipratropium (Duoneb) 3 ml Q6H RESP THERAPY HHN Last administered on 12/23/18 14:55; Admin Dose 3 ML; Start 12/21/18 at 20:00 Nystatin (Nystatin Powder) 1 applic BID TOP Last administered on 12/23/18 08:38; Admin Dose 1 APPLIC; Start 12/21/18 at 21:00 Vancomycin HCl (Vanco Iv Per Pharmacy) VANCOMYCIN PER PHARMACY PER PROTOCOL XX ; Start 12/22/18 at 07:00 Vancomycin HCl 250 ml @ 125 mls/hr Q24H IVPB Last administered on 12/23/18 09:08; Admin Dose 125 MLS/HR; Start 12/23/18 at 09:00 Sodium Chloride (Nacl) 1 gm TID PO Last administered on 12/23/18 14:13; Admin Dose 1 GM; Start 12/22/18 at 13:00 ARLETTE CHRISTY NP Dec 23, 2018 17:15
--- NOTE | 2018-12-23 18:34 | CONS ---
Assessment/Plan Assessment/Plan Hospital Course (Demo Recall) ID PROGRESS NOTE CURRENT ABX: DAY # 3 =>Vanco IV #2 s/p Ceftriaxone/Azith /Levaqauin x1 each 12/21/18 24H INTERVAL SUMMARY * Awake, alert, responsive -- polite, pleasant -- still SOB on supplemental O2 * She has no appetite, not able to eat her meal * Visitors present -- she is conversing appropriately DIAGNOSTIC IMAGING * 12/21/18 CXR: IMPRESSION:Hypoventilatory changes with bibasilar opacities favoring atelectasis, including alongside moderate hiatal hernia..No definite superimposed infiltrate or overt CHF. No pneumothorax. Aortic atherosclerotic calcification. MICRO * 12/22/18 Urine Cx (-) * 12/22/18 BCx (-) * 12/21/18 BCX (+) 2/2 BOTTLES in ED:STAPHYLOCOCCUS SPECIES PHYSICAL EXAMINATION: GENERAL: VSS, NAD HEENT: AT, NC, NECK: Supple, CHEST: Rise symmetrical HEART: Pulse RRR ABDOMEN: Soft EXTREMITIES: Warm, dry SKIN: No rash, no diaphoresis ID ASSESSMENT 88 yo F admit with: 1. SIRS w/Left shift on DIFF and Tmax 99.0, HR 100 * Bacteremia vs skin contaminated BCx 2/2 obtained in ED, repeat BCx (-) * She does not appear septic 2. Acute hypoxic respiratory distress -- stable on supplemental O2 3. COPD with exacerbation = Hx of Asthmatic-Bronchitis 4. Possible community acquired pneumonia 4. HTN 5. Osteoporosis ABX ALLERGIES:PCN INVASIVES: PIV CURRENT ABX: DAY # 3 =>Vanco IV #2 s/p Ceftriaxone/Azith /Levaqauin x1 each 12/21/18 ID RECOMMENDATIONS/PLAN: 1. Continue current ABX -- awaiting ID of [facility] BCX Will f//u tomorrow Consultation Date/Type/Reason Admit Date/Time Dec 21, 2018 at 11:58 Initial Consult Date Date/Time of Note DATE: 12/23/18 TIME: 18:18 Exam/Review of Systems Exam Vitals Vital Signs Date Temp Pulse Resp B/P (MAP) Pulse Ox O2 O2 Flow FiO2 Time Delivery Rate 12/23/18 96 20 86 Nasal 2.0 14:56 Cannula 12/23/18 98.1 158/72 13:25 (100) 12/21/18 21 10:02 Intake and Output 7/6/19 7/6/19 7/7/19 1515:00 23:00 07:00 IntakeIntake Total 730 ml 640 ml 1140 ml OutputOutput Total 600 ml 600 ml BalanceBalance 730 ml 40 ml 540 ml Results Result Diagram: 12/22/18 0509 12/22/18 0509 Medications Medication Current Medications Alendronate Sodium (Fosamax) 70 mg Mo@0630 PO ; Start 12/24/18 at 06:30 Gabapentin (Neurontin) 600 mg TID PO Last administered on 12/23/18 14:13; Admin Dose 600 MG; Start 12/21/18 at 21:00 Losartan Potassium (Cozaar) 100 mg DAILY PO Last administered on 12/23/18 08:37; Admin Dose 100 MG; Start 12/22/18 at 09:00 Metoprolol Succinate (Toprol Xl) 50 mg DAILY PO Last administered on 12/23/18 08:37; Admin Dose 50 MG; Start 12/22/18 at 09:00 Spironolactone (Aldactone) 25 mg DAILY PO Last administered on 12/23/18 08:37; Admin Dose 25 MG; Start 12/22/18 at 09:00 Tiotropium [place] (Spiriva) 1 inh DAILY INH Last administered on 12/23/18 08:36; Admin Dose 1 INH; Start 12/22/18 at 09:00 IV Flush (NS 3 ml) 3 ml PER PROTOCOL IV ; Start 12/21/18 at 16:00 Ondansetron HCl (Zofran Inj) 4 mg Q6H PRN IV NAUSEA/VOMITING; Start 12/21/18 at 16:00 Acetaminophen (Tylenol Tab) 650 mg Q6H PRN PO .PAIN 1-3 OR TEMP Last administered on 12/23/18at 00:40; Admin Dose 650 MG; Start 12/21/18 at 16:00 Famotidine (Pepcid Iv) 20 mg Q12 IV Last administered on 12/23/18 08:36; Admin Dose 20 MG; Start 12/22/18 at 09:00 Heparin Sodium (Porcine) (Heparin (5000 Units/1ml)) 5,000 unit Q8 SC Last administered on 12/23/18 14:18; Admin Dose 5,000 UNIT; Start 12/21/18 at 22:00 Albuterol/ Ipratropium (Duoneb) 3 ml Q2H RESP THERAPY PRN HHN sob Last administered on 12/22/18 10:37; Admin Dose 3 ML; Start 12/21/18 at 16:00 Guaifenesin (Robitussin Liquid Cup) 200 mg Q4H PRN PO cough Last administered on 12/22/18 21:43; Admin Dose 200 MG; Start 12/21/18 at 16:00 Fluticasone/ Vilanterol (Breo Ellipta 100-25 Mcg Inh) 1 inh DAILY INH Last administered on 12/23/18 08:36; Admin Dose 1 INH; Start 12/22/18 at 09:00 Sodium Chloride 1,000 ml @ 70 mls/hr [id number] IV Last administered on 12/23/18 06:41; Admin Dose 70 MLS/HR; Start 12/21/18 at 16:00 Albuterol/ Ipratropium (Duoneb) 3 ml Q6H RESP THERAPY HHN Last administered on 12/23/18 14:55; Admin Dose 3 ML; Start 12/21/18 at 20:00 Nystatin (Nystatin Powder) 1 applic BID TOP Last administered on 12/23/18 08:38; Admin Dose 1 APPLIC; Start 12/21/18 at 21:00 Vancomycin HCl (Vanco Iv Per Pharmacy) VANCOMYCIN PER PHARMACY PER PROTOCOL XX ; Start 12/22/18 at 07:00 Vancomycin HCl 250 ml @ 125 mls/hr Q24H IVPB Last administered on 12/23/18 09:08; Admin Dose 125 MLS/HR; Start 12/23/18 at 09:00 Sodium Chloride (Nacl) 1 gm TID PO Last administered on 12/23/18 14:13; Admin Dose 1 GM; Start 12/22/18 at 13:00 ELIF SCHULZ NP Dec 23, 2018 18:29
[2018-12-23 20:02] VITALS: BP 127/61; PULSE 93; RESP 19
[2018-12-23] MEDS: GUAIFENESIN 20 MG/ML 5ML CUP PO PRN (21:03)
[2018-12-24] MEDS: SOD CHLORIDE 0.9% 1,000 ML IV SCH (01:12)
[2018-12-24 02:00] VITALS: BP 120/58; PULSE 90; RESP 20
[2018-12-24] MEDS: ALBUTEROL/IPRATROPIUM (NEB) 3 ML AMP HHN SCH ×4 (02:00→21:25)
[2018-12-24] MEDS ORDERED: ALENDRONATE 70 MG TAB PO SCH (06:30)
[2018-12-24] MEDS: HEPARIN 5,000 UNIT/1 ML VIAL SC SCH ×3 (06:36→22:29)
[2018-12-24] MEDS: GUAIFENESIN 20 MG/ML 5ML CUP PO PRN ×2 (06:37→21:20)
[2018-12-24] MEDS: ACETAMINOPHEN 325 MG TAB PO PRN ×2 (06:37→16:47)
[2018-12-24 07:49] VITALS: BP 135/72; RESP 20
[2018-12-24] MEDS: FLUTICASONE/VILANTEROL 100-25 INH SCH (08:50)
[2018-12-24] MEDS: TIOTROPIUM 18 MCG CAPSULE INHA DEV INH SCH (08:50)
[2018-12-24] MEDS: NYSTATIN 30 GM POWDER BTL TOP SCH ×2 (08:51→21:20)
[2018-12-24] MEDS: VANCOMYCIN 1 GM 250 ML IVPB SCH (08:52)
[2018-12-24] MEDS: SODIUM CHLORIDE 1 GM TAB PO SCH ×3 (08:52→21:20)
[2018-12-24] MEDS: GABAPENTIN 300 MG CAP PO SCH ×3 (08:52→21:20)
[2018-12-24] MEDS: SPIRONOLACTONE 25 MG TAB PO SCH (08:53)
[2018-12-24] MEDS: LOSARTAN 50 MG TAB PO SCH (08:53)
[2018-12-24] MEDS: FAMOTIDINE 20 MG INJ IV SCH (08:53)
[2018-12-24] MEDS: METOPROLOL (XL) 50 MG TAB PO SCH (08:53)
[2018-12-24 14:00] VITALS: BP 145/82; PULSE 81; RESP 20
--- NOTE | 2018-12-24 15:00 | CONS ---
Assessment/Plan Assessment/Plan Hospital Course (Demo Recall) ID PROGRESS NOTE CURRENT ABX: DAY # 4 =>Vanco IV #3 s/p Ceftriaxone/Azith /Levaqauin x1 each 12/21/18 24H INTERVAL SUMMARY * Feeling about the same -- subjective SOB -- Awake, alert, responsive -- polite, pleasant -- still SOB on supplemental O2 * NO FEVERS, WBC NORMALIZED TODAY * BCx in ED FINALIZED = CoNS == SKIN CONTAMINANTS DIAGNOSTIC IMAGING * 12/21/18 CXR: IMPRESSION:Hypoventilatory changes with bibasilar opacities favoring atelectasis, including alongside moderate hiatal hernia..No definite superimposed infiltrate or overt CHF. No pneumothorax. Aortic atherosclerotic calcification. MICRO * 12/22/18 Urine Cx (-) * 12/22/18 BCx (-) * 12/21/18 BCX (+) 2/2 BOTTLES in ED: Organism 1 COAGULASE NEGATIVE STAPH PHYSICAL EXAMINATION: GENERAL: VSS, NAD HEENT: AT, NC, NECK: Supple, CHEST: Rise symmetrical HEART: Pulse RRR ABDOMEN: Soft EXTREMITIES: Warm, dry SKIN: No rash, no diaphoresis ID ASSESSMENT 88 yo F admit with: 1. SIRS w/Left shift on DIFF and Tmax 99.0, HR 100 => RESOLVED * Bacteremia vs skin contaminated BCx 2/2 obtained in ED, repeat BCx (-) * She does not appear septic 2. Acute hypoxic respiratory distress -- stable on supplemental O2 3. COPD with exacerbation = Hx of Asthmatic-Bronchitis 4. Possible community acquired pneumonia 4. HTN 5. Osteoporosis ABX ALLERGIES:PCN INVASIVES: PIV CURRENT ABX: DAY # 4 =>Vanco IV #3 s/p Ceftriaxone/Azith /Levaqauin x1 each 12/21/18 ID RECOMMENDATIONS/PLAN: 1. Continue current ABX --- Much improved on ABX 2. Anticipate DC Vanco tomorrow or the next day Consultation Date/Type/Reason Admit Date/Time Dec 21, 2018 at 11:58 Initial Consult Date Date/Time of Note DATE: 12/24/18 TIME: 14:57 Exam/Review of Systems Exam Vitals Vital Signs Date Temp Pulse Resp B/P (MAP) Pulse Ox O2 O2 Flow FiO2 Time Delivery Rate 12/24/18 Nasal 2.0 08:30 Cannula 12/24/18 96 08:08 12/24/18 86 22 08:06 12/24/18 97.6 135/72 07:49 (93) 12/21/18 21 10:02 Intake and Output 12/23/18 12/23/18 12/24/18 1515:00 23:00 07:00 IntakeIntake Total 1190 ml 450 ml 1230 ml BalanceBalance 1190 ml 450 ml 1230 ml Results Result Diagram: 12/24/18 0433 12/24/18 0433 Results 24hrs Laboratory Tests Test 12/24/18 04:33 White Blood Count 9.2 # Red Blood Count 4.07 L Hemoglobin 11.8 L Hematocrit 36.5 L Mean Corpuscular Volume 89.7 Mean Corpuscular Hemoglobin 29.0 Mean Corpuscular Hemoglobin Concent 32.3 Red Cell Distribution Width 14.2 Platelet Count 338 Mean Platelet Volume 8.0 Immature Granulocytes % 0.700 H Neutrophils % 80.9 H Lymphocytes % 5.1 L Monocytes % 10.1 Eosinophils % 2.4 Basophils % 0.8 Nucleated Red Blood Cells % 0.0 Immature Granulocytes # 0.060 H Neutrophils # 7.5 Lymphocytes # 0.5 L Monocytes # 0.9 Eosinophils # 0.2 Basophils # 0.1 Nucleated Red Blood Cells # 0.0 Sodium Level 137 Potassium Level 3.6 Chloride Level 102 # Carbon Dioxide Level 29 Anion Gap 6 Blood Urea Nitrogen 7 Creatinine 0.52 Est Glomerular Filtrat Rate mL/min Glucose Level 117 Calcium Level 8.1 L Medications Medication Current Medications Alendronate Sodium (Fosamax) 70 mg Mo@0630 PO Last administered on 12/24/18 08:49; Admin Dose 70 MG; Start 12/24/18 at 06:30 Gabapentin (Neurontin) 600 mg TID PO Last administered on 12/24/18 12:53; Admin Dose 600 MG; Start 12/21/18 at 21:00 Losartan Potassium (Cozaar) 100 mg DAILY PO Last administered on 12/24/18 08:53; Admin Dose 100 MG; Start 12/22/18 at 09:00 Metoprolol Succinate (Toprol Xl) 50 mg DAILY PO Last administered on 12/24/18at 08:53; Admin Dose 50 MG; Start 12/22/18 at 09:00 Spironolactone (Aldactone) 25 mg DAILY PO Last administered on 12/24/18 08:53; Admin Dose 25 MG; Start 12/22/18 at 09:00 Tiotropium [place] (Spiriva) 1 inh DAILY INH Last administered on 12/24/18 08:50; Admin Dose 1 INH; Start 12/22/18 at 09:00 IV Flush (NS 3 ml) 3 ml PER PROTOCOL IV ; Start 12/21/18 at 16:00 Ondansetron HCl (Zofran Inj) 4 mg Q6H PRN IV NAUSEA/VOMITING; Start 12/21/18 at 16:00 Acetaminophen (Tylenol Tab) 650 mg Q6H PRN PO .PAIN 1-3 OR TEMP Last administered on 12/24/18 06:37; Admin Dose 650 MG; Start 12/21/18 at 16:00 Heparin Sodium (Porcine) (Heparin (5000 Units/1ml)) 5,000 unit Q8 SC Last administered on 12/24/18 14:01; Admin Dose 5,000 UNIT; Start 12/21/18 at 22:00 Albuterol/ Ipratropium (Duoneb) 3 ml Q2H RESP THERAPY PRN HHN sob Last administered on 12/22/18 10:37; Admin Dose 3 ML; Start 12/21/18 at 16:00 Guaifenesin (Robitussin Liquid Cup) 200 mg Q4H PRN PO cough Last administered on 12/24/18 06:37; Admin Dose 200 MG; Start 12/21/18 at 16:00 Fluticasone/ Vilanterol (Breo Ellipta 100-25 Mcg Inh) 1 inh DAILY INH Last administered on 12/24/18 08:50; Admin Dose 1 INH; Start 12/22/18 at 09:00 Sodium Chloride 1,000 ml @ 70 mls/hr [id number] IV Last administered on 12/23/18 23:17; Admin Dose 70 MLS/HR; Start 12/21/18 at 16:00 Albuterol/ Ipratropium (Duoneb) 3 ml Q6H RESP THERAPY HHN Last administered on 12/24/18 14:49; Admin Dose 3 ML; Start 12/21/18 at 20:00 Nystatin (Nystatin Powder) 1 applic BID TOP Last administered on 12/24/18 08:51; Admin Dose 1 APPLIC; Start 12/21/18 at 21:00 Vancomycin HCl (Vanco Iv Per Pharmacy) VANCOMYCIN PER PHARMACY PER PROTOCOL XX ; Start 12/22/18 at 07:00 Vancomycin HCl 250 ml @ 125 mls/hr Q24H IVPB Last administered on 12/24/18at 08:52; Admin Dose 125 MLS/HR; Start 12/23/18 at 09:00 Sodium Chloride (Nacl) 1 gm TID PO Last administered on 12/24/18at 12:53; Admin Dose 1 GM; Start 12/22/18 at 13:00 Miscellaneous Information (*Rx Drug Level Order Reminder*) 1 0800 ONCE XX ; Start 12/25/18 at 08:00; Stop 12/25/18 at 08:01 Famotidine (Pepcid) 20 mg BID PO ; Start 12/24/18 at 21:00 ELIF SCHULZ NP Dec 24, 2018 15:00
[2018-12-24] MEDS ORDERED: FUROSEMIDE 20 MG INJ IV ONE (16:00)
--- NOTE | 2018-12-24 16:46 | PN ---
Date/Time of Note Date/Time of Note DATE: 12/24/18 TIME: 16:45 Assessment/Plan VTE Prophylaxis Risk score (from Ns)>0 risk: 8 SCD applied (from Ns): Yes Pharmacological prophylaxis: heparin Lines/Catheters IV Catheter Type (from Rust): Peripheral IV Urinary Cath still in place: No Assessment/Plan Hospital Course SUBJECTIVE: Continues to complain of dyspnea. OBJECTIVE: Physical Exam General: Adequately build 88 year-old female lying in bed in mild respiratory distress. HEENT: Normocephalic, atraumatic. Eyes: Anicteric sclerae, conjunctivae clear. ENT: Nasal septum midline, oral mucosa moist. Neck supple, no JVD noticed. Respiratory: Bilaterally diminished breath sounds. Use of accessory muscles of respiration. Bilateral rhonchi. Cardiovascular: S1, S2 heard. Regular rate and rhythm. Abdomen: Soft, nontender, and nondistended. Bowel sounds positive in all 4 quadrants. Genitourinary: Deferred. Extremities: No cyanosis, no clubbing, no edema. Peripheral pulses palpable. Neurologic: Cranial nerves II through XII grossly intact. The patient is awake, alert, and oriented. Skin: Normal skin turgor. No skin rashes. Labs & Vitals per chart ASSESSMENT & PLAN 88-year-old female with past medical history of COPD, hypertension, and neuropathy who presented to the emergency room with chief complaint of dyspnea with chest x-ray showing hypoventilatory changes with bibasilar opacities favoring atelectasis, who was admitted to inpatient setting for further treatment and evaluation. 1. Acute respiratory failure. Hypoxic. Etiology could be secondary to underlying COPD exacerbation. Continue patient on inhaled bronchodilators (MARTIN+ LABA) and inhaled anticholinergics. Start the patient on tapering dose of steroids. 2. Suspect CHF exacerbation, systolic versus diastolic dysfunction. Continue aldosterone antagonist. Start potassium sparing diuretics. Pending 2D echocardiogram. 3. Suspect pneumonia. Continue ABX as oer ID. 4. Neuropathy. Continue gabapentin. 5. Osteoporosis. Continue bisphosphonates. 6. Staph aureus bacteremia. On vancomycin as per ID. 7. Fluids, electrolytes, and nutrition. Low-cholesterol diet. 8. DVT prophylaxis. Subcutaneous heparin. 9. Plan. Continue inhaled bronchodilators. Continue antimicrobials as per ID. Discontinue IV fluids. Start diuresis. The patient was seen in collaboration with Dr. Rosario. Result Diagram: 12/24/18 0433 12/24/18 0433 Results 24hrs Laboratory Tests Test 12/24/18 04:26 12/24/18 04:33 B-Type Natriuretic Peptide 1800 H White Blood Count 9.2 # Red Blood Count 4.07 L Hemoglobin 11.8 L Hematocrit 36.5 L Mean Corpuscular Volume 89.7 Mean Corpuscular Hemoglobin 29.0 Mean Corpuscular Hemoglobin Concent 32.3 Red Cell Distribution Width 14.2 Platelet Count 338 Mean Platelet Volume 8.0 Immature Granulocytes % 0.700 H Neutrophils % 80.9 H Lymphocytes % 5.1 L Monocytes % 10.1 Eosinophils % 2.4 Basophils % 0.8 Nucleated Red Blood Cells % 0.0 Immature Granulocytes # 0.060 H Neutrophils # 7.5 Lymphocytes # 0.5 L Monocytes # 0.9 Eosinophils # 0.2 Basophils # 0.1 Nucleated Red Blood Cells # 0.0 Sodium Level 137 Potassium Level 3.6 Chloride Level 102 # Carbon Dioxide Level 29 Anion Gap 6 Blood Urea Nitrogen 7 Creatinine 0.52 Est Glomerular Filtrat Rate mL/min Glucose Level 117 Calcium Level 8.1 L Exam/Review of Systems Exam Vitals Vital Signs Date Temp Pulse Resp B/P (MAP) Pulse Ox O2 O2 Flow FiO2 Time Delivery Rate 12/24/18 80 19 95 Nasal 3.0 14:50 Cannula 12/24/18 98.7 145/82 14:00 (103) 12/21/18 21 10:02 Intake and Output 12/23/18 12/23/18 12/24/18 1515:00 23:00 07:00 IntakeIntake Total 1190 ml 450 ml 1230 ml BalanceBalance 1190 ml 450 ml 1230 ml Results Results 24hrs Laboratory Tests Test 12/24/18 04:26 12/24/18 04:33 B-Type Natriuretic Peptide 1800 H White Blood Count 9.2 # Red Blood Count 4.07 L Hemoglobin 11.8 L Hematocrit 36.5 L Mean Corpuscular Volume 89.7 Mean Corpuscular Hemoglobin 29.0 Mean Corpuscular Hemoglobin Concent 32.3 Red Cell Distribution Width 14.2 Platelet Count 338 Mean Platelet Volume 8.0 Immature Granulocytes % 0.700 H Neutrophils % 80.9 H Lymphocytes % 5.1 L Monocytes % 10.1 Eosinophils % 2.4 Basophils % 0.8 Nucleated Red Blood Cells % 0.0 Immature Granulocytes # 0.060 H Neutrophils # 7.5 Lymphocytes # 0.5 L Monocytes # 0.9 Eosinophils # 0.2 Basophils # 0.1 Nucleated Red Blood Cells # 0.0 Sodium Level 137 Potassium Level 3.6 Chloride Level 102 # Carbon Dioxide Level 29 Anion Gap 6 Blood Urea Nitrogen 7 Creatinine 0.52 Est Glomerular Filtrat Rate mL/min Glucose Level 117 Calcium Level 8.1 L Medications Medication Current Medications Alendronate Sodium (Fosamax) 70 mg Mo@0630 PO Last administered on 12/24/18 08:49; Admin Dose 70 MG; Start 12/24/18 at 06:30 Gabapentin (Neurontin) 600 mg TID PO Last administered on 12/24/18 12:53; Admin Dose 600 MG; Start 12/21/18 at 21:00 Losartan Potassium (Cozaar) 100 mg DAILY PO Last administered on 12/24/18 08:53; Admin Dose 100 MG; Start 12/22/18 at 09:00 Metoprolol Succinate (Toprol Xl) 50 mg DAILY PO Last administered on 12/24/18 08:53; Admin Dose 50 MG; Start 12/22/18 at 09:00 Spironolactone (Aldactone) 25 mg DAILY PO Last administered on 12/24/18 08:53; Admin Dose 25 MG; Start 12/22/18 at 09:00 Tiotropium [place] (Spiriva) 1 inh DAILY INH Last administered on 12/24/18 08:50; Admin Dose 1 INH; Start 12/22/18 at 09:00 IV Flush (NS 3 ml) 3 ml PER PROTOCOL IV ; Start 12/21/18 at 16:00 Ondansetron HCl (Zofran Inj) 4 mg Q6H PRN IV NAUSEA/VOMITING; Start 12/21/18 at 16:00 Acetaminophen (Tylenol Tab) 650 mg Q6H PRN PO .PAIN 1-3 OR TEMP Last adminis tered on 12/24/18 06:37; Admin Dose 650 MG; Start 12/21/18 at 16:00 Heparin Sodium (Porcine) (Heparin (5000 Units/1ml)) 5,000 unit Q8 SC Last administered on 12/24/18 14:01; Admin Dose 5,000 UNIT; Start 12/21/18 at 22:00 Albuterol/ Ipratropium (Duoneb) 3 ml Q2H RESP THERAPY PRN HHN sob Last adminis tered on 12/22/18 10:37; Admin Dose 3 ML; Start 12/21/18 at 16:00 Guaifenesin (Robitussin Liquid Cup) 200 mg Q4H PRN PO cough Last administered on 12/24/18 06:37; Admin Dose 200 MG; Start 12/21/18 at 16:00 Fluticasone/ Vilanterol (Breo Ellipta 100-25 Mcg Inh) 1 inh DAILY INH Last administered on 12/24/18 08:50; Admin Dose 1 INH; Start 12/22/18 at 09:00 Albuterol/ Ipratropium (Duoneb) 3 ml Q6H RESP THERAPY HHN Last administered on 12/24/18 14:49; Admin Dose 3 ML; Start 12/21/18 at 20:00 Nystatin (Nystatin Powder) 1 applic BID TOP Last administered on 12/24/18 08:51; Admin Dose 1 APPLIC; Start 12/21/18 at 21:00 Vancomycin HCl (Vanco Iv Per Pharmacy) VANCOMYCIN PER PHARMACY PER PROTOCOL XX ; Start 12/22/18 at 07:00 Vancomycin HCl 250 ml @ 125 mls/hr Q24H IVPB Last administered on 12/24/18 08 :52; Admin Dose 125 MLS/HR; Start 12/23/18 at 09:00 Sodium Chloride (Nacl) 1 gm TID PO Last administered on 12/24/18 12:53; Admin Dose 1 GM; Start 12/22/18 at 13:00 Miscellaneous Information (*Rx Drug Level Order Reminder*) 1 0800 ONCE XX ; Start 12/25/18 at 08:00; Stop 12/25/18 at 08:01 Famotidine (Pepcid) 20 mg BID PO ; Start 12/24/18 at 21:00 Furosemide (Lasix) 20 mg DAILY IV ; Start 12/25/18 at 09:00 Methylprednisolone Sodium Succinate (Solu-Medrol) 60 mg Q6 IV ; Start 12/24/18 at 18:00 Polyethylene Glycol (Miralax) 17 gm BID PO ; Start 12/24/18 at 21:00 FELIPE AQUINO NP Dec 24, 2018 16:46
[2018-12-24] MEDS: hydrALAzine 20 MG INJ IV PRN (16:48)
[2018-12-24] MEDS: METHYLPREDNISOLONE 125 MG INJ IV SCH (17:20)
[2018-12-24] MEDS ORDERED: SOD CHLORIDE 0.9% 100 ML ONE (17:45)
[2018-12-24] MEDS ORDERED: IOHEXOL 100 ML ONE (17:45)
[2018-12-24 20:00] VITALS: BP 180/95; PULSE 106; RESP 20
[2018-12-24] MEDS: POLYETHYLENE GLYCOL 17 GM PACKET PO SCH (21:20)
[2018-12-24] MEDS: FAMOTIDINE 20 MG TAB PO SCH (21:20)
[2018-12-24] MEDS ORDERED: LABETALOL 100 MG TAB PO ONE (22:00)
[2018-12-24 22:30] VITALS: BP 177/96; PULSE 98; RESP 20
[2018-12-24 23:00] VITALS: BP 153/89; PULSE 93; RESP 20
[2018-12-25] VITALS (8 sets, daily range): BP systolic 136–167; BP diastolic 66–88; PULSE 79–105; RESP 18–25
[2018-12-25] MEDS: METHYLPREDNISOLONE 125 MG INJ IV SCH ×2 (00:08→06:00)
--- NOTE | 2018-12-25 00:21 | RADRPT ---
Echocardiogram Report Patient Name: ROGELIO ALFONSOPatient ID: [id number] : 1930 (88y 11m)Study Date: 12/22/2018 7:53:55 AM Gender: FAccession #: [id number] Tech: René Medina [facility] Location: [id number] Ref.Physician: ARLETTE CHRISTY Height(Cm): BSA: Weight(Kg): Quality: Technically Difficult StudyOrder Physician: ARLETTE CHRISTY Account #: Procedures: Echocardiographic Report: Transthoracic echocardiogram with complete 2D, M-Mode, and doppler examination. Indications: Suspect CHF. Measurements: 2D/M Mode Doppler Measurement Value Normal Range Measurement Value Normal Range LVIDd 2D 4.8 [ 3.8 - 5.2 ] cm AV Peak Portillo 1.3 [ 100.0 - 170.0 ] cm/se c LVIDs 2D 3.1 [ 2.2 - 3.5 ] cm AV Peak PG 6.0 [ 2.0 - 9.0 ] mmHg LVPWd 2D 0.8 [ 0.6 - 0.9 ] cm LVOT Peak Portillo 0.6 [ 70.0 - 110.0 ] cm/sec IVSd 2D 0.9 [ 0.6 - 0.9 ] cm LVOT Peak PG 2.0 [ 2.0 - 6.0 ] mmHg AoR Diam 2D 2.5 [ 2.3 - 3.1 ] cm MV E Peak Portillo 1.1 [ 60.0 - 130.0 ] cm/sec EDV 2D 110.0 [ 46.0 - 106.0 ] ml MV A Peak Portillo 0.5 [ 100.0 - 120.0 ] cm/se c ESV 2D 38.2 [ 14.0 - 42.0 ] ml MV E/A 2.4 [ 0.8 - 1.5 ] ratio EF 2D 65.3 [ 54.0 - 74.0 ] percent MV PHT 53.0 [ 20.0 - 100.0 ] msec LA Dimen 2D 3.5 [ 2.7 - 3.8 ] cm MV Decel Time 180 [ 104 - 258 ] msec MV Decel Mcdonough 6 Lat E` Portillo 0.1 [ 10.0 - 15.0 ] cm/sec Lateral E/E` 9.9 [ 1.0 - 2.0 ] ratio Med E` Portillo 0.1 cm/sec MV E/A 2.4 [ 0.8 - 1.5 ] ratio MVA PHT 4.2 [ 2.0 - 4.0 ] cm2 TR Peak Portillo 2.6 [ 100.0 - 280.0 ] cm/se c TR Peak PG 27.0 mmHg PV Peak Portillo 1.2 [ 40.0 - 80.0 ] cm/sec PV Peak PG 6.0 mmHg Findings: Left Ventricle: Normal left ventricular systolic function. Normal left ventricular wall thickness. Ejection fraction is visually estimated at 55-60 %. Right Ventricle: Normal right ventricular size. Normal right ventricular systolic function. Left Atrium: The left atrium is normal in size. Right Atrium: The right atrium is normal in size. Atrial Septum: Normal atrial septum. Ventricular septum: Normal/intact ventricular septum. Mitral Valve: Mild mitral annular calcification. Trace mitral regurgitation. Aortic Valve: Normal appearance of the aortic valve. No aortic regurgitation. Tricuspid Valve: Normal appearance of the tricuspid valve. Unable to obtain RVSP due to minimal presence of tricuspid regurgitation. The estimated Peak RVSP is 27 mmHg. There is trace tricuspid regurgitation. Pulmonic Valve: Pulmonic valve not well visualized. No evidence of pulmonic regurgitation. Pericardium: Normal pericardium with no significant pericardial effusion. Aorta: Normal aortic root. IVC: The IVC is not well visualized. Conclusions: Normal left ventricular systolic function. Normal left ventricular wall thickness. Ejection fraction is visually estimated at 55-60 %. Mild mitral annular calcification. Trace mitral regurgitation. Normal appearance of the tricuspid valve. Unable to obtain RVSP due to minimal presence of tricuspid regurgitation. The estimated Peak RVSP is 27 mmHg. There is trace tricuspid regurgitation. Electronically Signed By: Tom Covarrubias 2018-12-24 19:43:02 PDT
[2018-12-25] MEDS: ALBUTEROL/IPRATROPIUM (NEB) 3 ML AMP HHN SCH ×4 (02:10→20:00)
[2018-12-25] MEDS: ACETAMINOPHEN 325 MG TAB PO PRN ×2 (03:14→10:35)
[2018-12-25] MEDS: GUAIFENESIN 20 MG/ML 5ML CUP PO PRN ×2 (03:14→09:53)
[2018-12-25] MEDS: HEPARIN 5,000 UNIT/1 ML VIAL SC SCH ×3 (06:00→21:07)
[2018-12-25] MEDS ORDERED: FUROSEMIDE 20 MG INJ IV SCH (09:00)
[2018-12-25] MEDS: FAMOTIDINE 20 MG TAB PO SCH ×2 (09:53→20:51)
[2018-12-25] MEDS: VANCOMYCIN 1 GM 250 ML IVPB SCH (09:53)
[2018-12-25] MEDS: SPIRONOLACTONE 25 MG TAB PO SCH (09:53)
[2018-12-25] MEDS: POLYETHYLENE GLYCOL 17 GM PACKET PO SCH ×2 (09:53→20:50)
[2018-12-25] MEDS: LOSARTAN 50 MG TAB PO SCH (09:54)
[2018-12-25] MEDS: METOPROLOL (XL) 50 MG TAB PO SCH (09:54)
[2018-12-25] MEDS: SODIUM CHLORIDE 1 GM TAB PO SCH ×3 (09:54→20:50)
[2018-12-25] MEDS: TIOTROPIUM 18 MCG CAPSULE INHA DEV INH SCH (09:54)
[2018-12-25] MEDS: GABAPENTIN 300 MG CAP PO SCH ×3 (09:56→20:51)
[2018-12-25] MEDS: NYSTATIN 30 GM POWDER BTL TOP SCH ×2 (09:57→20:51)
[2018-12-25] MEDS: FLUTICASONE/VILANTEROL 100-25 INH SCH (09:58)
--- NOTE | 2018-12-25 12:13 | PN ---
Date/Time of Note Date/Time of Note DATE: 12/25/18 TIME: 12:12 Assessment/Plan VTE Prophylaxis Risk score (from Nsg)>0 risk: 4 SCD applied (from Nsg): Yes Pharmacological prophylaxis: heparin Lines/Catheters IV Catheter Type (from Nrsg): Saline Lock Urinary Cath still in place: No Assessment/Plan Hospital Course SUBJECTIVE: Continues to complain of dyspnea. OBJECTIVE: Physical Exam General: Adequately build 88 year-old female lying in bed in mild respiratory di stress. HEENT: Normocephalic, atraumatic. Eyes: Anicteric sclerae, conjunctivae clear. ENT: Nasal septum midline, oral mucosa moist. Neck supple, no JVD noticed. Respiratory: Bilaterally diminished breath sounds. Use of accessory muscles of respiration. Bilateral rhonchi. Cardiovascular: S1, S2 heard. Regular rate and rhythm. Abdomen: Soft, nontender, and nondistended. Bowel sounds positive in all 4 quadrants. Genitourinary: Deferred. Extremities: No cyanosis, no clubbing, no edema. Peripheral pulses palpable. Neurologic: Cranial nerves II through XII grossly intact. The patient is awake, alert, and oriented. Skin: Normal skin turgor. No skin rashes. Labs & Vitals per chart ASSESSMENT & PLAN 88-year-old female with past medical history of COPD, hypertension, and neuropathy who presented to the emergency room with chief complaint of dyspnea with chest x-ray showing hypoventilatory changes with bibasilar opacities favoring atelectasis, who was admitted to inpatient setting for further treatment and evaluation. 1. Acute respiratory failure. Hypoxic. Etiology could be secondary to underlying COPD exacerbation. Continue patient on inhaled bronchodilators (MARTIN+ LABA) and inhaled anticholinergics. Continue the patient on tapering dose of steroids. 2. Suspect pneumonia. Continue ABX as per ID. 3. Neuropathy. Continue gabapentin. 4. Osteoporosis. Continue bisphosphonates. 5. Staph aureus bacteremia. On vancomycin as per ID. 6. Fluids, electrolytes, and nutrition. Low-cholesterol diet. 7. DVT prophylaxis. Subcutaneous heparin. 8. Plan. Continue inhaled bronchodilators. Continue antimicrobials as per ID. Obtain pulmonology consult. The patient was seen in collaboration with Dr. Rosario. Result Diagram: 12/25/18 0445 12/25/18 0445 Results 24hrs Laboratory Tests Test 12/25/18 02:00 12/25/18 04:45 12/25/18 07:52 Blood Gas Specimen Source Blood arterial Arterial Blood Date Drawn 12/25/2018 1:50:27 AM Arterial Blood pH 7.380 (Temp corrected) Arterial Blood pCO2 57.9 H (Temp correct) Arterial Blood pO2 67.5 L (Temp corrected) Arterial Blood HCO3 33.5 H Arterial Blood Base Excess 6.5 H Arterial Blood 93.7 L Oxygen Saturation Adonis Test ACCEPTAB Arterial Blood Gas Right Radial Puncture Site Arterial 0.7 Blood Carboxyhemoglobin Arterial Blood Methemoglobin 0.3 Blood Gas A-a O2 Differential 78.4 H Oxyhemoglobin Percent 92.8 L Blood Gas Temperature 37.0 Blood Gas Modality NASAL CANNULA FiO2 30.0 Blood Gas Notified Whom AA Blood Gas Notified Time 12/25/2018 2:03:46 AM White Blood Count 6.6 # Red Blood Count 4.50 Hemoglobin 13.3 Hematocrit 39.8 Mean Corpuscular Volume 88.4 Mean Corpuscular Hemoglobin 29.6 Mean Corpuscular 33.4 Hemoglobin Concent Red Cell Distribution Width 13.8 Platelet Count 341 Mean Platelet Volume 7.8 Immature Granulocytes % 0.500 H Neutrophils % 93.3 H Lymphocytes % 5.0 L Monocytes % 0.9 Eosinophils % 0.0 Basophils % 0.3 Nucleated Red Blood Cells % 0.0 Immature Granulocytes # 0.030 Neutrophils # 6.2 Lymphocytes # 0.3 L Monocytes # 0.1 L Eosinophils # 0.0 Basophils # 0.0 Nucleated Red Blood Cells # 0.0 Sodium Level 136 Potassium Level 4.3 Chloride Level 93 L Carbon Dioxide Level 35 H Anion Gap 8 Blood Urea Nitrogen 9 Creatinine 0.46 Est Glomerular Filtrat Rate mL/min Glucose Level 150 Calcium Level 8.9 Phosphorus Level 2.8 Magnesium Level 2.0 Vancomycin Level Trough 6.5 L Exam/Review of Systems Exam Vitals Vital Signs Date Temp Pulse Resp B/P (MAP) Pulse Ox O2 O2 Flow FiO2 Time Delivery Rate 12/25/18 89 18 93 Nasal 3.0 08:15 Cannula 12/25/18 97.9 167/87 07:37 (113) 12/21/18 21 10:02 Intake and Output 12/24/18 12/24/18 12/25/18 1515:00 23:00 07:00 IntakeIntake Total 120 ml 1430 ml BalanceBalance 120 ml 1430 ml Results Results 24hrs Laboratory Tests Test 12/25/18 02:00 12/25/18 04:45 12/25/18 07:52 Blood Gas Specimen Source Blood arterial Arterial Blood Date Drawn 12/25/2018 1:50:27 AM Arterial Blood pH 7.380 (Temp corrected) Arterial Blood pCO2 57.9 H (Temp correct) Arterial Blood pO2 67.5 L (Temp corrected) Arterial Blood HCO3 33.5 H Arterial Blood Base Excess 6.5 H Arterial Blood 93.7 L Oxygen Saturation Adonis Test ACCEPTAB Arterial Blood Gas Right Radial Puncture Site Arterial 0.7 Blood Carboxyhemoglobin Arterial Blood Methemoglobin 0.3 Blood Gas A-a O2 Differential 78.4 H Oxyhemoglobin Percent 92.8 L Blood Gas Temperature 37.0 Blood Gas Modality NASAL CANNULA FiO2 30.0 Blood Gas Notified Whom AA Blood Gas Notified Time 12/25/2018 2:03:46 AM White Blood Count 6.6 # Red Blood Count 4.50 Hemoglobin 13.3 Hematocrit 39.8 Mean Corpuscular Volume 88.4 Mean Corpuscular Hemoglobin 29.6 Mean Corpuscular 33.4 Hemoglobin Concent Red Cell Distribution Width 13.8 Platelet Count 341 Mean Platelet Volume 7.8 Immature Granulocytes % 0.500 H Neutrophils % 93.3 H Lymphocytes % 5.0 L Monocytes % 0.9 Eosinophils % 0.0 Basophils % 0.3 Nucleated Red Blood Cells % 0.0 Immature Granulocytes # 0.030 Neutrophils # 6.2 Lymphocytes # 0.3 L Monocytes # 0.1 L Eosinophils # 0.0 Basophils # 0.0 Nucleated Red Blood Cells # 0.0 Sodium Level 136 Potassium Level 4.3 Chloride Level 93 L Carbon Dioxide Level 35 H Anion Gap 8 Blood Urea Nitrogen 9 Creatinine 0.46 Est Glomerular Filtrat Rate mL/min Glucose Level 150 Calcium Level 8.9 Phosphorus Level 2.8 Magnesium Level 2.0 Vancomycin Level Trough 6.5 L Medications Medication Current Medications Alendronate Sodium (Fosamax) 70 mg Mo@0630 PO Last administered on 12/24/18at 08:49; Admin Dose 70 MG; Start 12/24/18 at 06:30 Gabapentin (Neurontin) 600 mg TID PO Last administered on 12/25/18at 09:56; Admin Dose 600 MG; Start 12/21/18 at 21:00 Losartan Potassium (Cozaar) 100 mg DAILY PO Last administered on 12/25/18 09:54; Admin Dose 100 MG; Start 12/22/18 at 09:00 Metoprolol Succinate (Toprol Xl) 50 mg DAILY PO Last administered on 12/25/18 09:54; Admin Dose 50 MG; Start 12/22/18 at 09:00 Spironolactone (Aldactone) 25 mg DAILY PO Last administered on 12/25/18 09:53; Admin Dose 25 MG; Start 12/22/18 at 09:00 Tiotropium [place] (Spiriva) 1 inh DAILY INH Last administered on 12/25/18 09:54; Admin Dose 1 INH; Start 12/22/18 at 09:00 IV Flush (NS 3 ml) 3 ml PER PROTOCOL IV ; Start 12/21/18 at 16:00 Ondansetron HCl (Zofran Inj) 4 mg Q6H PRN IV NAUSEA/VOMITING; Start 12/21/18 at 16:00 Acetaminophen (Tylenol Tab) 650 mg Q6H PRN PO .PAIN 1-3 OR TEMP Last administered on 12/25/18 10:35; Admin Dose 650 MG; Start 12/21/18 at 16:00 Heparin Sodium (Porcine) (Heparin (5000 Units/1ml)) 5,000 unit Q8 SC Last administered on 12/24/18 22:29; Admin Dose 5,000 UNIT; Start 12/21/18 at 22:00 Albuterol/ Ipratropium (Duoneb) 3 ml Q2H RESP THERAPY PRN HHN sob Last administered on 12/22/18 10:37; Admin Dose 3 ML; Start 12/21/18 at 16:00 Guaifenesin (Robitussin Liquid Cup) 200 mg Q4H PRN PO cough Last administered on 12/25/18 09:53; Admin Dose 200 MG; Start 12/21/18 at 16:00 Fluticasone/ Vilanterol (Breo Ellipta 100-25 Mcg Inh) 1 inh DAILY INH Last administered on 12/25/18 09:58; Admin Dose 1 INH; Start 12/22/18 at 09:00 Albuterol/ Ipratropium (Duoneb) 3 ml Q6H RESP THERAPY HHN Last administered on 12/25/18 08:15; Admin Dose 3 ML; Start 12/21/18 at 20:00 Nystatin (Nystatin Powder) 1 applic BID TOP Last administered on 12/25/18 09:57; Admin Dose 1 APPLIC; Start 12/21/18 at 21:00 Vancomycin HCl (Vanco Iv Per Pharmacy) VANCOMYCIN PER PHARMACY PER PROTOCOL XX ; Start 12/22/18 at 07:00 Vancomycin HCl 250 ml @ 125 mls/hr Q24H IVPB Last administered on 12/25/18 09:53; Admin Dose 125 MLS/HR; Start 12/23/18 at 09:00; Stop 12/25/18 at 13:00 Sodium Chloride (Nacl) 1 gm TID PO Last administered on 12/25/18 09:54; Admin Dose 1 GM; Start 12/22/18 at 13:00 Famotidine (Pepcid) 20 mg BID PO Last administered on 12/25/18 09:53; Admin Dose 20 MG; Start 12/24/18 at 21:00 Furosemide (Lasix) 20 mg DAILY IV Last administered on 12/25/18 09:55; Admin Dose 20 MG; Start 12/25/18 at 09:00 Methylprednisolone Sodium Succinate (Solu-Medrol) 60 mg Q6 IV Last administered on 12/25/18 00:08; Admin Dose 60 MG; Start 12/24/18 at 18:00 Polyethylene Glycol (Miralax) 17 gm BID PO Last administered on 12/25/18 09:53; Admin Dose 17 GM; Start 12/24/18 at 21:00 Hydralazine HCl (Apresoline) 10 mg Q6H PRN IV SBP>160 Last administered on 12/24/18 16:48; Admin Dose 10 MG; Start 12/24/18 at 17:00 Vancomycin/Sodium Chloride 250 ml @ 125 mls/hr Q12H IVPB ; Start 12/25/18 at 21:00 Bisacodyl (Dulcolax) 10 mg DAILY PRN PO CONSTIPATION; Start 12/25/18 at 12:00 FELIPE AQUINO NP Dec 25, 2018 12:12
--- NOTE | 2018-12-25 13:04 | CONS ---
Assessment/Plan Assessment/Plan Assessment/Plan (Daily) Chest x-ray showing cardiomegaly with mild pulmonary vascular congestion and small bilateral pleural effusions. Assessment and recommendations; 1. Patient admitted with acute bronchitis with history of asthma and chronic bronchitis. 2. Possibly underlying CHF, possibly hypertensive in etiology. 3. Gram-positive bacteremia possibly contaminant. Patient currently on appropriate antimicrobial regimen. 4. Mild hypercapnic respiratory failure. Continue current supportive care. Antibiotics per ID recommendations. Obtain follow-up ABG in 24 to 48 hours. Perform 2D echocardiogram, TSH level. Consultation Date/Type/Reason Admit Date/Time Dec 21, 2018 at 11:58 Date of Consultation: Dec 25, 2018 Type of Consult Pulmonary Patient is a pleasant 88-year-old lady who came into the hospital with a few days history of shortness of breath chest congestion and coughing. Patient denies any fever or chills. Patient does have chronic respiratory symptoms with history of chronic bronchitis/asthma. However according to her the symptoms got worse over the last few days. She denies any high fever, chills, body aches or myalgias. By the time I saw her, the patient appeared comfortable. Past medical history; 1. History of asthma/chronic bronchitis. 2. History of hypertension. Medications; reviewed. Allergies; penicillin and codeine. Social history; patient has been a lifelong non-smoker. Family history; noncontributory. Patient does not have any children. She lives alone by herself. Occupational history; patient was a teacher. Review of systems; denies any headache, sinus symptoms, postnasal drip. Denies any chest pain, angina. Any wheezing. Complains of chest congestion and cough with yellow sputum production. Denies any abdominal pain, nausea vomiting. Any melena hematochezia. Any edema. Complains of very mild orthopnea. General exam; elderly woman, awake alert, currently in no distress. Date/Time of Note DATE: 12/25/18 TIME: 13:00 Past Medical History Home Meds Reported Medications Albuterol Sulfate (Proair Respiclick) 90 Mcg Aer.pow.ba, 1 PUFF INHALATION Q4 PRN for SHORTNESS OF BREATH, #1 BOTTLE 12/21/18 Gabapentin* (Gabapentin*) 600 Mg Tablet, 600 MG PO TID, #90 TAB 12/21/18 Tiotropium [place]* (Spiriva*) 18 Mcg Cap.w.dev, 1 CAP INHALATION DAILY, #30 CAP 12/21/18 Spironolactone* (Aldactone*) 25 Mg Tablet, 25 MG PO DAILY, #30 TAB 12/21/18 Losartan Potassium* (Losartan Potassium*) 100 Mg Tablet, 100 MG PO DAILY, TAB 12/21/18 Metoprolol Succinate* (Toprol XL*) 50 Mg Tab.er.24h, 50 MG PO DAILY, #30 TAB 12/21/18 Alendronate Sodium* (Fosamax*) 70 Mg Tablet, 70 MG PO Q7D, #4 TAB 12/21/18 Discontinued Reported Medications Albuterol Sulfate* (Proventil* Neb) 0.5% Nebu 12/14/13 Melatonin (Melatonin) 3 Mg Tablet.sa, prn 12/14/13 Acetaminophen* (Acetaminophen*) 325 Mg Tab 12/14/13 Oxycodone Hcl-Acetaminophen* (Percocet*) 5-325 Mg Tablet 12/14/13 Oxycodone Hcl-Acetaminophen* (Percocet*) 5-325 Mg Tablet, prn 12/14/13 Magnesium Hydroxide* (Milk Of Magnesia*) 400 Mg/5 Ml Oral.susp, prn 12/14/13 [fleets enema] No Conflict Check 12/14/13 Bisacodyl* (Bisacodyl*) 10 Mg Supp, daily 12/14/13 Cetirizine Hcl* (Zyrtec*) 10 Mg Capsule, 10mg 12/14/13 Lisinopril* (Lisinopril*) 20 Mg Tablet, daily 12/14/13 Teriparatide (Forteo) 2.4 Ml Pen.injctr, SC daily 12/14/13 Docusate Sodium* (Colace*) 100 Mg Capsule, daily 12/14/13 Chlorthalidone* (Chlorthalidone*) 50 Mg Tablet, q daily 12/14/13 [advair diskus] No Conflict Check, daily 12/14/13 Medications Current Medications Alendronate Sodium (Fosamax) 70 mg Mo@0630 PO Last administered on 12/24/18at 08:49; Admin Dose 70 MG; Start 12/24/18 at 06:30 Gabapentin (Neurontin) 600 mg TID PO Last administered on 12/25/18at 09:56; Admin Dose 600 MG; Start 12/21/18 at 21:00 Losartan Potassium (Cozaar) 100 mg DAILY PO Last administered on 12/25/18 09:54; Admin Dose 100 MG; Start 12/22/18 at 09:00 Metoprolol Succinate (Toprol Xl) 50 mg DAILY PO Last administered on 12/25/18 09:54; Admin Dose 50 MG; Start 12/22/18 at 09:00 Spironolactone (Aldactone) 25 mg DAILY PO Last administered on 12/25/18 09:53; Admin Dose 25 MG; Start 12/22/18 at 09:00 Tiotropium [place] (Spiriva) 1 inh DAILY INH Last administered on 12/25/18 09:54; Admin Dose 1 INH; Start 12/22/18 at 09:00 IV Flush (NS 3 ml) 3 ml PER PROTOCOL IV ; Start 12/21/18 at 16:00 Ondansetron HCl (Zofran Inj) 4 mg Q6H PRN IV NAUSEA/VOMITING; Start 12/21/18 at 16:00 Acetaminophen (Tylenol Tab) 650 mg Q6H PRN PO .PAIN 1-3 OR TEMP Last administered on 12/25/18 10:35; Admin Dose 650 MG; Start 12/21/18 at 16:00 Heparin Sodium (Porcine) (Heparin (5000 Units/1ml)) 5,000 unit Q8 SC Last administered on 12/24/18 22:29; Admin Dose 5,000 UNIT; Start 12/21/18 at 22:00 Albuterol/ Ipratropium (Duoneb) 3 ml Q2H RESP THERAPY PRN HHN sob Last administered on 12/22/18 10:37; Admin Dose 3 ML; Start 12/21/18 at 16:00 Guaifenesin (Robitussin Liquid Cup) 200 mg Q4H PRN PO cough Last administered on 12/25/18 09:53; Admin Dose 200 MG; Start 12/21/18 at 16:00 Fluticasone/ Vilanterol (Breo Ellipta 100-25 Mcg Inh) 1 inh DAILY INH Last administered on 12/25/18 09:58; Admin Dose 1 INH; Start 12/22/18 at 09:00 Albuterol/ Ipratropium (Duoneb) 3 ml Q6H RESP THERAPY HHN Last administered on 12/25/18at 08:15; Admin Dose 3 ML; Start 12/21/18 at 20:00 Nystatin (Nystatin Powder) 1 applic BID TOP Last administered on 12/25/18at 09:57; Admin Dose 1 APPLIC; Start 12/21/18 at 21:00 Vancomycin HCl (Vanco Iv Per Pharmacy) VANCOMYCIN PER PHARMACY PER PROTOCOL XX ; Start 12/22/18 at 07:00 Vancomycin HCl 250 ml @ 125 mls/hr Q24H IVPB Last administered on 12/25/18at 09:53; Admin Dose 125 MLS/HR; Start 12/23/18 at 09:00; Stop 12/25/18 at 13:00 Sodium Chloride (Nacl) 1 gm TID PO Last administered on 12/25/18 09:54; Admin Dose 1 GM; Start 12/22/18 at 13:00 Famotidine (Pepcid) 20 mg BID PO Last administered on 12/25/18at 09:53; Admin Dose 20 MG; Start 12/24/18 at 21:00 Polyethylene Glycol (Miralax) 17 gm BID PO Last administered on 12/25/18at 09:53; Admin Dose 17 GM; Start 12/24/18 at 21:00 Hydralazine HCl (Apresoline) 10 mg Q6H PRN IV SBP>160 Last administered on 12/24/18at 16:48; Admin Dose 10 MG; Start 12/24/18 at 17:00 Vancomycin/Sodium Chloride 250 ml @ 125 mls/hr Q12H IVPB ; Start 12/25/18 at 21:00 Bisacodyl (Dulcolax) 10 mg DAILY PRN PO CONSTIPATION; Start 12/25/18 at 12:00 Levofloxacin/ Dextrose 100 ml @ 100 mls/hr Q24H IVPB ; Start 12/25/18 at 12:30 Methylprednisolone Sodium Succinate (Solu-Medrol) 40 mg Q8 IV ; Start 12/25/18 at 14:00 Acetylcysteine (Mucomyst) 2 ml Q6H RESP THERAPY NEB ; Start 12/25/18 at 14:00 Allergies: Coded Allergies: Penicillins (Verified Allergy, Severe, RASH, 12/21/18) codeine (Verified Allergy, Unknown, 12/21/18) Social History Alcohol Use: other (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 No lymphadenopathy. Midline trachea. No thyromegaly. Patient has fair dentition. No neck masses. Chest exam; diminished breath sounds bilaterally with scattered crackles. S1-S2 audible, no murmurs. Regular rhythm. Abdomen exam; soft, scaphoid. No organomegaly. Bowel sounds audible. Nontender. Extremity exam; no peripheral edema. Patient does have patchy ecchymosis. [employer] exam; no focal deficit. Results Result Diagram: 12/25/18 0445 12/25/18 0445 Results 24hrs Laboratory Tests Test 12/25/18 02:00 12/25/18 04:45 12/25/18 07:52 Blood Gas Specimen Source Blood arterial Arterial Blood Date Drawn 12/25/2018 1:50:27 AM Arterial Blood pH 7.380 (Temp corrected) Arterial Blood pCO2 57.9 H (Temp correct) Arterial Blood pO2 67.5 L (Temp corrected) Arterial Blood HCO3 33.5 H Arterial Blood Base Excess 6.5 H Arterial Blood 93.7 L Oxygen Saturation Adonis Test ACCEPTAB Arterial Blood Gas Right Radial Puncture Site Arterial 0.7 Blood Carboxyhemoglobin Arterial Blood Methemoglobin 0.3 Blood Gas A-a O2 Differential 78.4 H Oxyhemoglobin Percent 92.8 L Blood Gas Temperature 37.0 Blood Gas Modality NASAL CANNULA FiO2 30.0 Blood Gas Notified Whom AA Blood Gas Notified Time 12/25/2018 2:03:46 AM White Blood Count 6.6 # Red Blood Count 4.50 Hemoglobin 13.3 Hematocrit 39.8 Mean Corpuscular Volume 88.4 Mean Corpuscular Hemoglobin 29.6 Mean Corpuscular 33.4 Hemoglobin Concent Red Cell Distribution Width 13.8 Platelet Count 341 Mean Platelet Volume 7.8 Immature Granulocytes % 0.500 H Neutrophils % 93.3 H Lymphocytes % 5.0 L Monocytes % 0.9 Eosinophils % 0.0 Basophils % 0.3 Nucleated Red Blood Cells % 0.0 Immature Granulocytes # 0.030 Neutrophils # 6.2 Lymphocytes # 0.3 L Monocytes # 0.1 L Eosinophils # 0.0 Basophils # 0.0 Nucleated Red Blood Cells # 0.0 Sodium Level 136 Potassium Level 4.3 Chloride Level 93 L Carbon Dioxide Level 35 H Anion Gap 8 Blood Urea Nitrogen 9 Creatinine 0.46 Est Glomerular Filtrat Rate mL/min Glucose Level 150 Calcium Level 8.9 Phosphorus Level 2.8 Magnesium Level 2.0 Vancomycin Level Trough 6.5 L Medications Medication Current Medications Alendronate Sodium (Fosamax) 70 mg Mo@0630 PO Last administered on 12/24/18 08:49; Admin Dose 70 MG; Start 12/24/18 at 06:30 Gabapentin (Neurontin) 600 mg TID PO Last administered on 12/25/18 09:56; Admin Dose 600 MG; Start 12/21/18 at 21:00 Losartan Potassium (Cozaar) 100 mg DAILY PO Last administered on 12/25/18 09:54; Admin Dose 100 MG; Start 12/22/18 at 09:00 Metoprolol Succinate (Toprol Xl) 50 mg DAILY PO Last administered on 12/25/18 09:54; Admin Dose 50 MG; Start 12/22/18 at 09:00 Spironolactone (Aldactone) 25 mg DAILY PO Last administered on 12/25/18 09:53; Admin Dose 25 MG; Start 12/22/18 at 09:00 Tiotropium [place] (Spiriva) 1 inh DAILY INH Last administered on 12/25/18 09:54; Admin Dose 1 INH; Start 12/22/18 at 09:00 IV Flush (NS 3 ml) 3 ml PER PROTOCOL IV ; Start 12/21/18 at 16:00 Ondansetron HCl (Zofran Inj) 4 mg Q6H PRN IV NAUSEA/VOMITING; Start 12/21/18 at 16:00 Acetaminophen (Tylenol Tab) 650 mg Q6H PRN PO .PAIN 1-3 OR TEMP Last administered on 12/25/18 10:35; Admin Dose 650 MG; Start 12/21/18 at 16:00 Heparin Sodium (Porcine) (Heparin (5000 Units/1ml)) 5,000 unit Q8 SC Last administered on 12/24/18 22:29; Admin Dose 5,000 UNIT; Start 12/21/18 at 22:00 Albuterol/ Ipratropium (Duoneb) 3 ml Q2H RESP THERAPY PRN HHN sob Last administered on 12/22/18 10:37; Admin Dose 3 ML; Start 12/21/18 at 16:00 Guaifenesin (Robitussin Liquid Cup) 200 mg Q4H PRN PO cough Last administered on 12/25/18 09:53; Admin Dose 200 MG; Start 12/21/18 at 16:00 Fluticasone/ Vilanterol (Breo Ellipta 100-25 Mcg Inh) 1 inh DAILY INH Last administered on 12/25/18 09:58; Admin Dose 1 INH; Start 12/22/18 at 09:00 Albuterol/ Ipratropium (Duoneb) 3 ml Q6H RESP THERAPY HHN Last administered on 12/25/18 08:15; Admin Dose 3 ML; Start 12/21/18 at 20:00 Nystatin (Nystatin Powder) 1 applic BID TOP Last administered on 12/25/18 09:57; Admin Dose 1 APPLIC; Start 12/21/18 at 21:00 Vancomycin HCl (Vanco Iv Per Pharmacy) VANCOMYCIN PER PHARMACY PER PROTOCOL XX ; Start 12/22/18 at 07:00 Vancomycin HCl 250 ml @ 125 mls/hr Q24H IVPB Last administered on 12/25/18 09:53; Admin Dose 125 MLS/HR; Start 12/23/18 at 09:00; Stop 12/25/18 at 13:00 Sodium Chloride (Nacl) 1 gm TID PO Last administered on 12/25/18 09:54; Admin Dose 1 GM; Start 12/22/18 at 13:00 Famotidine (Pepcid) 20 mg BID PO Last administered on 12/25/18 09:53; Admin Dose 20 MG; Start 12/24/18 at 21:00 Polyethylene Glycol (Miralax) 17 gm BID PO Last administered on 12/25/18 09:53; Admin Dose 17 GM; Start 12/24/18 at 21:00 Hydralazine HCl (Apresoline) 10 mg Q6H PRN IV SBP>160 Last administered on 12/24/18at 16:48; Admin Dose 10 MG; Start 12/24/18 at 17:00 Vancomycin/Sodium Chloride 250 ml @ 125 mls/hr Q12H IVPB ; Start 12/25/18 at 21:00 Bisacodyl (Dulcolax) 10 mg DAILY PRN PO CONSTIPATION; Start 12/25/18 at 12:00 Levofloxacin/ Dextrose 100 ml @ 100 mls/hr Q24H IVPB ; Start 12/25/18 at 12:30 Methylprednisolone Sodium Succinate (Solu-Medrol) 40 mg Q8 IV ; Start 12/25/18 at 14:00 Acetylcysteine (Mucomyst) 2 ml Q6H RESP THERAPY NEB ; Start 12/25/18 at 14:00 DAVE DACOSTA Dec 25, 2018 13:04
[2018-12-25] MEDS: LEVOFLOXACIN 500MG/D5W (PMX) 100 ML IVPB SCH (13:16)
[2018-12-25] MEDS: ACETYLCYSTEINE 20% 4 ML VIAL NEB SCH ×2 (14:10→19:59)
[2018-12-25] MEDS: METHYLPREDNISOLONE 40 MG INJ IV SCH ×2 (14:24→20:51)
[2018-12-25] MEDS: BISACODYL (EC) 5 MG TAB PO PRN (14:36)
--- NOTE | 2018-12-25 16:15 | CONS ---
Assessment/Plan Assessment/Plan Hospital Course (Demo Recall) Patient is awake looks comfortable afebrile WBC 6.6 neutrophils 93.3 BUN 9 creatinine 0.46 Microbiology: Blood culture on admission grew coag negative staph species sputum culture grew Angela albicans Antimicrobials: Patient is on Vanco Levaquin Physical examination: Well-developed very pleasant fragile elderly woman who is alert in no distress. Head atraumatic normocephalic neck is supple chest rise symmetrical breath sounds clear diminished bases with scattered crackles heart S1-S2 abdomen soft bowel sounds present extremities without cyanosis Assessment: 1. Acute bronchitis 2. Coag negative staph bacteremia consistent with contaminant 3. Possible CHF Plan: Patient is stable continue levofloxacin for couple more days, RIMMA Bower, follow pulmonary recommendations Consultation Date/Type/Reason Admit Date/Time Dec 21, 2018 at 11:58 Initial Consult Date 12/25/18 Type of Consult id Date/Time of Note DATE: 12/25/18 TIME: 16:14 Exam/Review of Systems Exam Vitals Vital Signs Date Temp Pulse Resp B/P (MAP) Pulse Ox O2 O2 Flow FiO2 Time Delivery Rate 12/25/18 98.3 79 18 140/67 95 14:37 (91) 12/25/18 Nasal 3.0 14:04 Cannula 12/21/18 21 10:02 Intake and Output 12/24/18 12/24/18 12/25/18 1515:00 23:00 07:00 IntakeIntake Total 120 ml 1430 ml BalanceBalance 120 ml 1430 ml Results Result Diagram: 12/25/18 0445 12/25/18 0445 Results 24hrs Laboratory Tests Test 12/25/18 02:00 12/25/18 04:45 12/25/18 07:52 Blood Gas Specimen Source Blood arterial Arterial Blood Date Drawn 12/25/2018 1:50:27 AM Arterial Blood pH 7.380 (Temp corrected) Arterial Blood pCO2 57.9 H (Temp correct) Arterial Blood pO2 67.5 L (Temp corrected) Arterial Blood HCO3 33.5 H Arterial Blood Base Excess 6.5 H Arterial Blood 93.7 L Oxygen Saturation Adonis Test ACCEPTAB Arterial Blood Gas Right Radial Puncture Site Arterial 0.7 Blood Carboxyhemoglobin Arterial Blood Methemoglobin 0.3 Blood Gas A-a O2 Differential 78.4 H Oxyhemoglobin Percent 92.8 L Blood Gas Temperature 37.0 Blood Gas Modality NASAL CANNULA FiO2 30.0 Blood Gas Notified Whom AA Blood Gas Notified Time 12/25/2018 2:03:46 AM White Blood Count 6.6 # Red Blood Count 4.50 Hemoglobin 13.3 Hematocrit 39.8 Mean Corpuscular Volume 88.4 Mean Corpuscular Hemoglobin 29.6 Mean Corpuscular 33.4 Hemoglobin Concent Red Cell Distribution Width 13.8 Platelet Count 341 Mean Platelet Volume 7.8 Immature Granulocytes % 0.500 H Neutrophils % 93.3 H Lymphocytes % 5.0 L Monocytes % 0.9 Eosinophils % 0.0 Basophils % 0.3 Nucleated Red Blood Cells % 0.0 Immature Granulocytes # 0.030 Neutrophils # 6.2 Lymphocytes # 0.3 L Monocytes # 0.1 L Eosinophils # 0.0 Basophils # 0.0 Nucleated Red Blood Cells # 0.0 Sodium Level 136 Potassium Level 4.3 Chloride Level 93 L Carbon Dioxide Level 35 H Anion Gap 8 Blood Urea Nitrogen 9 Creatinine 0.46 Est Glomerular Filtrat Rate mL/min Glucose Level 150 Calcium Level 8.9 Phosphorus Level 2.8 Magnesium Level 2.0 Vancomycin Level Trough 6.5 L Medications Medication Current Medications Alendronate Sodium (Fosamax) 70 mg Mo@0630 PO Last administered on 12/24/18 08:49; Admin Dose 70 MG; Start 12/24/18 at 06:30 Gabapentin (Neurontin) 600 mg TID PO Last administered on 12/25/18 13:16; Admin Dose 600 MG; Start 12/21/18 at 21:00 Losartan Potassium (Cozaar) 100 mg DAILY PO Last administered on 12/25/18 09:54; Admin Dose 100 MG; Start 12/22/18 at 09:00 Metoprolol Succinate (Toprol Xl) 50 mg DAILY PO Last administered on 12/25/18 09:54; Admin Dose 50 MG; Start 12/22/18 at 09:00 Spironolactone (Aldactone) 25 mg DAILY PO Last administered on 12/25/18 09:53; Admin Dose 25 MG; Start 12/22/18 at 09:00 Tiotropium [place] (Spiriva) 1 inh DAILY INH Last administered on 12/25/18 09:54; Admin Dose 1 INH; Start 12/22/18 at 09:00 IV Flush (NS 3 ml) 3 ml PER PROTOCOL IV ; Start 12/21/18 at 16:00 Ondansetron HCl (Zofran Inj) 4 mg Q6H PRN IV NAUSEA/VOMITING; Start 12/21/18 at 16:00 Acetaminophen (Tylenol Tab) 650 mg Q6H PRN PO .PAIN 1-3 OR TEMP Last administe red on 12/25/18 10:35; Admin Dose 650 MG; Start 12/21/18 at 16:00 Heparin Sodium (Porcine) (Heparin (5000 Units/1ml)) 5,000 unit Q8 SC Last administered on 12/25/18 14:25; Admin Dose 5,000 UNIT; Start 12/21/18 at 22:00 Albuterol/ Ipratropium (Duoneb) 3 ml Q2H RESP THERAPY PRN HHN sob Last administered on 12/22/18 10:37; Admin Dose 3 ML; Start 12/21/18 at 16:00 Guaifenesin (Robitussin Liquid Cup) 200 mg Q4H PRN PO cough Last administered on 12/25/18 09:53; Admin Dose 200 MG; Start 12/21/18 at 16:00 Fluticasone/ Vilanterol (Breo Ellipta 100-25 Mcg Inh) 1 inh DAILY INH Last administered on 12/25/18 09:58; Admin Dose 1 INH; Start 12/22/18 at 09:00 Albuterol/ Ipratropium (Duoneb) 3 ml Q6H RESP THERAPY HHN Last administered on 12/25/18 14:04; Admin Dose 3 ML; Start 12/21/18 at 20:00 Nystatin (Nystatin Powder) 1 applic BID TOP Last administered on 12/25/18 09:57; Admin Dose 1 APPLIC; Start 12/21/18 at 21:00 Vancomycin HCl (Vanco Iv Per Pharmacy) VANCOMYCIN PER PHARMACY PER PROTOCOL XX ; Start 12/22/18 at 07:00 Sodium Chloride (Nacl) 1 gm TID PO Last administered on 12/25/18 13:16; Admin Dose 1 GM; Start 12/22/18 at 13:00 Famotidine (Pepcid) 20 mg BID PO Last administered on 12/25/18 09:53; Admin Dose 20 MG; Start 12/24/18 at 21:00 Polyethylene Glycol (Miralax) 17 gm BID PO Last administered on 12/25/18 09:53; Admin Dose 17 GM; Start 12/24/18 at 21:00 Hydralazine HCl (Apresoline) 10 mg Q6H PRN IV SBP>160 Last administered on 12/24/18 16:48; Admin Dose 10 MG; Start 12/24/18 at 17:00 Vancomycin/Sodium Chloride 250 ml @ 125 mls/hr Q12H IVPB ; Start 12/25/18 at 21:00 Bisacodyl (Dulcolax) 10 mg DAILY PRN PO CONSTIPATION Last administered on 12/25/18 14:36; Admin Dose 10 MG; Start 12/25/18 at 12:00 Levofloxacin/ Dextrose 100 ml @ 100 mls/hr Q24H IVPB Last administered on 12/25/18 13:16; Admin Dose 100 MLS/HR; Start 12/25/18 at 12:30 Methylprednisolone Sodium Succinate (Solu-Medrol) 40 mg Q8 IV Last administered on 12/25/18 14:24; Admin Dose 40 MG; Start 12/25/18 at 14:00 Acetylcysteine (Mucomyst) 2 ml Q6H RESP THERAPY NEB Last administered on 12/25/18 14:10; Admin Dose 2 ML; Start 12/25/18 at 14:00 ZORAIDA OLSON NP Dec 25, 2018 16:15
[2018-12-25] MEDS: ALBUTEROL/IPRATROPIUM (NEB) 3 ML AMP HHN PRN (17:01)
[2018-12-25] MEDS ORDERED: FUROSEMIDE 20 MG INJ IV ONE (17:30)
--- NOTE | 2018-12-25 17:54 | EN ---
Date/Time of Note Date/Time of Note DATE: 12/25/18 TIME: 17:43 Event Note Medicine Medicine Event Note Rapid response called around 17:20 for hypoxia. Briefly, this is an 88 yo woman with advanced COPD admitted for dyspnea and likely pneumonia. She is on levofloxacin. According to the nurse, the patient had just received a breathing treatment of albuterol/atrovent when she complained of dyspnea and she was noted to be hypoxic to low 80s. Nonrebreather face mask was placed and rapid response called. When I arrived BP 165/87, P 104, saturating 98% on nonrebreather, no marked tachypnea or respiratory distress. She was awake, answering questions appropriately. Complained that she suddenly couldn't catch her breath. She denied chest pain/pressure/palpitations. We were able to downgrade her to simple facemask, she preserved her oxygen saturations. EKG was done, appears unchanged from EKG on admission. DIFFERENTIAL - Pulmonary embolism: Very unlikely. The patient had a CTPA yesterday negative for PE and has been on therapeutic heparin subQ since then. I will not pursue repeat CT. - ACS: EKG without ischemic changes. Troponin ordered. No chest pain. - Pneumothorax: Pending portable CXR - Most likely the patient was off oxygen for more than a few minutes and desaturated. PLAN - Transfer to telemetry - I will look at the CXR when it is done - BiPAP overnight for possible hypercapnia. 45 minutes critical care time spent on this patient. BRIONNA MARTINI MD Dec 25, 2018 17:54
[2018-12-25] MEDS ORDERED: VANCOMYCIN 750 MG (PMX) 250 ML IVPB SCH (21:00)
[2018-12-26] VITALS (15 sets, daily range): BP systolic 134–148; BP diastolic 62–81; PULSE 82–105; RESP 17–19
[2018-12-26] MEDS: ACETYLCYSTEINE 20% 4 ML VIAL NEB SCH ×4 (01:15→21:26)
[2018-12-26] MEDS: ALBUTEROL/IPRATROPIUM (NEB) 3 ML AMP HHN SCH ×6 (01:15→21:26)
[2018-12-26] MEDS: METHYLPREDNISOLONE 40 MG INJ IV SCH ×3 (05:33→20:11)
[2018-12-26] MEDS: HEPARIN 5,000 UNIT/1 ML VIAL SC SCH ×3 (06:16→20:16)
[2018-12-26] MEDS: NYSTATIN 30 GM POWDER BTL TOP SCH ×2 (08:33→20:11)
[2018-12-26] MEDS: FLUTICASONE/VILANTEROL 100-25 INH SCH (08:33)
[2018-12-26] MEDS: POLYETHYLENE GLYCOL 17 GM PACKET PO SCH ×2 (08:35→20:11)
[2018-12-26] MEDS: SODIUM CHLORIDE 1 GM TAB PO SCH ×3 (08:36→20:11)
[2018-12-26] MEDS: SPIRONOLACTONE 25 MG TAB PO SCH (08:36)
[2018-12-26] MEDS: LOSARTAN 50 MG TAB PO SCH (08:36)
[2018-12-26] MEDS: GABAPENTIN 300 MG CAP PO SCH ×3 (08:36→20:11)
[2018-12-26] MEDS: METOPROLOL (XL) 50 MG TAB PO SCH (08:37)
[2018-12-26] MEDS: FAMOTIDINE 20 MG TAB PO SCH ×2 (08:37→20:11)
[2018-12-26] MEDS: TIOTROPIUM 18 MCG CAPSULE INHA DEV INH SCH (10:06)
--- NOTE | 2018-12-26 10:37 | CONS ---
Assessment/Plan Assessment/Plan Assessment/Plan (Daily) Chest x-ray was reviewed from late yesterday afternoon which is essentially unremarkable except for emphysematous changes. Assessment recommendations; 1. Patient admitted with asthmatic bronchitis with interval improvement. 2. Possibly some element of mild CHF. 3. Gram-positive bacteremia. Possibly contaminant. Continue current supportive care. Patient responding well to current treatment regimen. Consultation Date/Type/Reason Admit Date/Time Dec 21, 2018 at 11:58 Initial Consult Date 12/25/18 Type of Consult Pulmonary Patient is a pleasant 88-year-old lady who came into the hospital with a few days history of shortness of breath chest congestion and coughing. Patient denies any fever or chills. Patient does have chronic respiratory symptoms with history of chronic bronchitis/asthma. However according to her the symptoms got worse over the last few days. She denies any high fever, chills, body aches or myalgias. By the time I saw her, the patient appeared comfortable. Past medical history; 1. History of asthma/chronic bronchitis. 2. History of hypertension. Medications; reviewed. Allergies; penicillin and codeine. Social history; patient has been a lifelong non-smoker. Family history; noncontributory. Patient does not have any children. She lives alone by herself. Occupational history; patient was a teacher. Review of systems; denies any headache, sinus symptoms, postnasal drip. Denies any chest pain, angina. Any wheezing. Complains of chest congestion and cough with yellow sputum production. Denies any abdominal pain, nausea vomiting. Any melena hematochezia. Any edema. Complains of very mild orthopnea. General exam; elderly woman, awake alert, currently in no distress. Date/Time of Note DATE: 12/26/18 TIME: 10:35 24 HR Interval Summary Free Text/Dictation Patient's condition is improving. Reports decreased shortness of breath and coughing. General exam; elderly woman, awake alert, laying comfortably in bed. Currently in no distress. Exam/Review of Systems Exam Vitals Vital Signs Date Temp Pulse Resp B/P (MAP) Pulse Ox O2 O2 Flow FiO2 Time Delivery Rate 12/26/18 86 92 50 10:19 12/26/18 Nasal 4.0 09:00 Cannula 12/26/18 98.0 17 148/71 07:13 (96) Intake and Output 12/25/18 12/25/18 12/26/18 1515:00 23:00 07:00 IntakeIntake Total 1210 ml 480 ml 240 ml OutputOutput Total 650 ml 400 ml BalanceBalance 1210 ml -170 ml -160 ml Exam H EENT exam; supple neck, no JVD. No lymphadenopathy. Midline trachea. No thyromegaly. Patient has fair dentition. No neck masses. Chest exam; diminished breath sounds bilaterally with scattered crackles. S1-S2 audible, no murmurs. Regular rhythm. Abdomen exam; soft, nontender. No organomegaly. Bowel sounds are audible. Extremity exam; no peripheral edema clubbing. [employer] exam; no focal deficit. Results Result Diagram: 12/26/1862712/26/18627 Results 24hrs Laboratory Tests Test 12/25/18 17:27 12/25/18 20:30 12/26/18 06:00 12/26/18 06:28 Bedside Glucose 137 Blood Gas Blood arterial Specimen Source Arterial Blood 12/25/2018 8:40:58 Date Drawn PM Arterial Blood 7.436 pH (Temp corrected) Arterial Blood 53.8 H pCO2 (Temp correct) Arterial Blood 79.1 L pO2 (Temp corrected) Arterial Blood 35.4 H HCO3 Arterial Blood 9.3 H Base Excess Arterial Blood 95.7 Oxygen Saturatio n [place] Test ACCEPTAB Arterial Blood Left Radial Gas Puncture Site Arterial 0.6 Blood Carboxyhem oglobin Arterial Blood 0 Methemoglobin Blood Gas A-a O2 144.2 H Differential Oxyhemoglobin 95.1 Percent Blood Gas 37.0 Temperature Blood Gas 16.0 Respiration Rate Blood Gas Actual 20 Respiration Rate Blood Gas MASK - BIPAP Modality FiO2 40.0 Blood Gas 12/5 IPAP/EPAP Ratio Blood Gas [facility] Notified Whom Blood Gas 12/25/2018 8:47:28 Notified Time PM Urine Color YELLOW Urine Clarity SLIGHTLY CLOUDY A Urine pH 6.0 Urine Specific 1.019 [place] Urine Ketones 1+ H Urine Nitrite NEGATIVE Urine Bilirubin NEGATIVE Urine NEGATIVE Urobilinogen Urine Leukocyte NEGATIVE Esterase Urine 1 Microscopic RBC Urine 3 Microscopic WBC Urine Amorphous FEW A Crystals Urine Mucus FEW A Urine Hemoglobin NEGATIVE Urine Glucose NEGATIVE Urine Total 2+ H Protein White Blood 7.2 Count Red Blood Count 4.64 Hemoglobin 13.5 Hematocrit 40.7 Mean Corpuscular 87.7 Volume Mean Corpuscular 29.1 Hemoglobin Mean Corpuscular 33.2 Hemoglobin Zoraida nt Red Cell 13.7 Distribution Width Platelet Count 404 Mean Platelet 7.8 Volume Immature 0.600 H Granulocytes % Neutrophils % 85.6 H Lymphocytes % 6.6 L Monocytes % 7.1 Eosinophils % 0.0 Basophils % 0.1 Nucleated Red 0.0 Blood Cells % Immature 0.040 H Granulocytes # Neutrophils # 6.1 Lymphocytes # 0.5 L Monocytes # 0.5 Eosinophils # 0.0 Basophils # 0.0 Nucleated Red 0.0 Blood Cells # Sodium Level 136 Potassium Level 3.8 Chloride Level 92 L Carbon Dioxide 36 H Level Anion Gap 8 Blood Urea 20 # Nitrogen Creatinine 0.70 Est Glomerular Filtrat Rate mL/min Glucose Level 134 Calcium Level 8.9 Phosphorus Level 3.3 Magnesium Level 2.2 Medications Medication Current Medications Alendronate Sodium (Fosamax) 70 mg Mo@0630 PO Last administered on 12/24/18 08:49; Admin Dose 70 MG; Start 12/24/18 at 06:30 Gabapentin (Neurontin) 600 mg TID PO Last administered on 12/26/18 08:36; Admin Dose 600 MG; Start 12/21/18 at 21:00 Losartan Potassium (Cozaar) 100 mg DAILY PO Last administered on 12/26/18 08:36; Admin Dose 100 MG; Start 12/22/18 at 09:00 Metoprolol Succinate (Toprol Xl) 50 mg DAILY PO Last administered on 12/26/18 08:37; Admin Dose 50 MG; Start 12/22/18 at 09:00 Spironolactone (Aldactone) 25 mg DAILY PO Last administered on 12/26/18 08:36; Admin Dose 25 MG; Start 12/22/18 at 09:00 Tiotropium [place] (Spiriva) 1 inh DAILY INH Last administered on 12/26/18 10 :06; Admin Dose 1 INH; Start 12/22/18 at 09:00 IV Flush (NS 3 ml) 3 ml PER PROTOCOL IV ; Start 12/21/18 at 16:00 Ondansetron HCl (Zofran Inj) 4 mg Q6H PRN IV NAUSEA/VOMITING; Start 12/21/18 at 16:00 Acetaminophen (Tylenol Tab) 650 mg Q6H PRN PO .PAIN 1-3 OR TEMP Last administered on 12/25/18 10:35; Admin Dose 650 MG; Start 12/21/18 at 16:00 Heparin Sodium (Porcine) (Heparin (5000 Units/1ml)) 5,000 unit Q8 SC Last administered on 12/26/18 06:16; Admin Dose 5,000 UNIT; Start 12/21/18 at 22:00 Albuterol/ Ipratropium (Duoneb) 3 ml Q2H RESP THERAPY PRN HHN sob Last administered on 12/25/18 17:01; Admin Dose 3 ML; Start 12/21/18 at 16:00 Guaifenesin (Robitussin Liquid Cup) 200 mg Q4H PRN PO cough Last administered on 12/25/18 09:53; Admin Dose 200 MG; Start 12/21/18 at 16:00 Fluticasone/ Vilanterol (Breo Ellipta 100-25 Mcg Inh) 1 inh DAILY INH Last administered on 12/26/18 08:33; Admin Dose 1 INH; Start 12/22/18 at 09:00 Nystatin (Nystatin Powder) 1 applic BID TOP Last administered on 12/26/18 08:33; Admin Dose 1 APPLIC; Start 12/21/18 at 21:00 Sodium Chloride (Nacl) 1 gm TID PO Last administered on 12/26/18 08:36; Admin Dose 1 GM; Start 12/22/18 at 13:00 Famotidine (Pepcid) 20 mg BID PO Last administered on 12/26/18 08:37; Admin Dose 20 MG; Start 12/24/18 at 21:00 Polyethylene Glycol (Miralax) 17 gm BID PO Last administered on 12/26/18 08:35; Admin Dose 17 GM; Start 12/24/18 at 21:00 Hydralazine HCl (Apresoline) 10 mg Q6H PRN IV SBP>160 Last administered on 12/24/18 16:48; Admin Dose 10 MG; Start 12/24/18 at 17:00 Bisacodyl (Dulcolax) 10 mg DAILY PRN PO CONSTIPATION Last administered on 12/25/18 14:36; Admin Dose 10 MG; Start 12/25/18 at 12:00 Levofloxacin/ Dextrose 100 ml @ 100 mls/hr Q24H IVPB Last administered on 12/25/18 13:16; Admin Dose 100 MLS/HR; Start 12/25/18 at 12:30 Methylprednisolone Sodium Succinate (Solu-Medrol) 40 mg Q8 IV Last administered on 12/26/18 05:33; Admin Dose 40 MG; Start 12/25/18 at 14:00 Acetylcysteine (Mucomyst) 2 ml Q6H RESP THERAPY NEB Last administered on 12/26/18 08:09; Admin Dose 2 ML; Start 12/25/18 at 14:00 Albuterol/ Ipratropium (Duoneb) 3 ml Q4H RESP THERAPY HHN Last administered on 12/26/18 08:09; Admin Dose 3 ML; Start 12/25/18 at 21:00 DAVE DACOSTA Dec 26, 2018 10:37
--- NOTE | 2018-12-26 11:09 | PN ---
Date/Time of Note Date/Time of Note DATE: 12/26/18 TIME: 11:06 Assessment/Plan VTE Prophylaxis Risk score (from Nsg)>0 risk: 6 SCD applied (from Nsg): Yes Pharmacological prophylaxis: heparin Lines/Catheters IV Catheter Type (from Nrsg): Saline Lock Urinary Cath still in place: Yes Reason Cath still needed: terminal illness/intractable pain Assessment/Plan Hospital Course SUBJECTIVE: The patient was transferred to telemetry floor on 12/25/2018 following the rapid response because of worsening respiratory distress. The patient was placed on noninvasive positive pressure ventilation. The patient remains on BiPAP. OBJECTIVE: Physical Exam General: Adequately build 88 year-old female lying in bed in mild respiratory distress. HEENT: Normocephalic, atraumatic. Eyes: Anicteric sclerae, conjunctivae clear. ENT: Nasal septum midline, oral mucosa moist. Neck supple, no JVD noticed. Respiratory: Bilaterally diminished breath sounds. Use of accessory muscles of respiration. Bilateral rhonchi. On BiPAP. Cardiovascular: S1, S2 heard. Regular rate and rhythm. Abdomen: Soft, nontender, and nondistended. Bowel sounds positive in all 4 quadrants. Genitourinary: Deferred. Extremities: No cyanosis, no clubbing, no edema. Peripheral pulses palpable. Neurologic: Cranial nerves II through XII grossly intact. The patient is awake, alert, and oriented. Skin: Normal skin turgor. No skin rashes. Labs & Vitals per chart ASSESSMENT & PLAN 88-year-old female with past medical history of COPD, hypertension, and neurop athy who presented to the emergency room with chief complaint of dyspnea with chest x-ray showing hypoventilatory changes with bibasilar opacities favoring atelectasis, who was admitted to inpatient setting for further treatment and evaluation. 1. Acute respiratory failure. Hypoxic. Etiology could be secondary to underlying COPD exacerbation. Continue patient on inhaled bronchodilators (MARTIN+ LABA) and inhaled anticholinergics. Continue the patient on tapering dose of steroids. Being followed by pulmonology. 2. Suspect pneumonia. Continue ABX as per ID. 3. Neuropathy. Continue gabapentin. 4. Osteoporosis. Continue bisphosphonates. 5. Staph aureus bacteremia. On vancomycin as per ID. 6. Fluids, electrolytes, and nutrition. Low-cholesterol diet. 7. DVT prophylaxis. Subcutaneous heparin. 8. Plan. Continue inhaled bronchodilators. Continue antimicrobials as per ID. Pain off oxygen as tolerated. Patient expressed her wishes that as she wanted to be a DNR. The patient's CODE STATUS was changed to DNR. Social work consult was called for addressing hospice care with the patient. Plan of care including the change in CODE STATUS was discussed with the patient's RN. The patient was seen in collaboration with Dr. Rosario. Result Diagram: 12/26/18 0628 12/26/18 0628 Results 24hrs Laboratory Tests Test 12/25/18 17:27 12/25/18 20:30 12/26/18 06:00 12/26/18 06:28 Bedside Glucose 137 Blood Gas Blood arterial Specimen Source Arterial Blood 12/25/2018 8:40:58 Date Drawn PM Arterial Blood 7.436 pH (Temp corrected) Arterial Blood 53.8 H pCO2 (Temp correct) Arterial Blood 79.1 L pO2 (Temp corrected) Arterial Blood 35.4 H HCO3 Arterial Blood 9.3 H Base Excess Arterial Blood 95.7 Oxygen Saturatio n [place] Test ACCEPTAB Arterial Blood Left Radial Gas Puncture Site Arterial 0.6 Blood Carboxyhem oglobin Arterial Blood 0 Methemoglobin Blood Gas A-a O2 144.2 H Differential Oxyhemoglobin 95.1 Percent Blood Gas 37.0 Temperature Blood Gas 16.0 Respiration Rate Blood Gas Actual 20 Respiration Rate Blood Gas MASK - BIPAP Modality FiO2 40.0 Blood Gas 12/5 IPAP/EPAP Ratio Blood Gas [facility] Notified Whom Blood Gas 12/25/2018 8:47:28 Notified Time PM Urine Color YELLOW Urine Clarity SLIGHTLY CLOUDY A Urine pH 6.0 Urine Specific 1.019 [place] Urine Ketones 1+ H Urine Nitrite NEGATIVE Urine Bilirubin NEGATIVE Urine NEGATIVE Urobilinogen Urine Leukocyte NEGATIVE Esterase Urine 1 Microscopic RBC Urine 3 Microscopic WBC Urine Amorphous FEW A Crystals Urine Mucus FEW A Urine Hemoglobin NEGATIVE Urine Glucose NEGATIVE Urine Total 2+ H Protein White Blood 7.2 Count Red Blood Count 4.64 Hemoglobin 13.5 Hematocrit 40.7 Mean Corpuscular 87.7 Volume Mean Corpuscular 29.1 Hemoglobin Mean Corpuscular 33.2 Hemoglobin Zoraida nt Red Cell 13.7 Distribution Width Platelet Count 404 Mean Platelet 7.8 Volume Immature 0.600 H Granulocytes % Neutrophils % 85.6 H Lymphocytes % 6.6 L Monocytes % 7.1 Eosinophils % 0.0 Basophils % 0.1 Nucleated Red 0.0 Blood Cells % Immature 0.040 H Granulocytes # Neutrophils # 6.1 Lymphocytes # 0.5 L Monocytes # 0.5 Eosinophils # 0.0 Basophils # 0.0 Nucleated Red 0.0 Blood Cells # Sodium Level 136 Potassium Level 3.8 Chloride Level 92 L Carbon Dioxide 36 H Level Anion Gap 8 Blood Urea 20 # Nitrogen Creatinine 0.70 Est Glomerular Filtrat Rate mL/min Glucose Level 134 Calcium Level 8.9 Phosphorus Level 3.3 Magnesium Level 2.2 Exam/Review of Systems Exam Vitals Vital Signs Date Temp Pulse Resp B/P (MAP) Pulse Ox O2 O2 Flow FiO2 Time Delivery Rate 12/26/18 86 92 50 10:19 12/26/18 Nasal 4.0 09:00 Cannula 12/26/18 98.0 17 148/71 07:13 (96) Intake and Output 12/25/18 12/25/18 12/26/18 1414:59 22:59 06:59 IntakeIntake Total 1210 ml 480 ml 240 ml OutputOutput Total 650 ml 400 ml BalanceBalance 1210 ml -170 ml -160 ml Results Results 24hrs Laboratory Tests Test 12/25/18 17:27 12/25/18 20:30 12/26/18 06:00 12/26/18 06:28 Bedside Glucose 137 Blood Gas Blood arterial Specimen Source Arterial Blood 12/25/2018 8:40:58 Date Drawn PM Arterial Blood 7.436 pH (Temp corrected) Arterial Blood 53.8 H pCO2 (Temp correct) Arterial Blood 79.1 L pO2 (Temp corrected) Arterial Blood 35.4 H HCO3 Arterial Blood 9.3 H Base Excess Arterial Blood 95.7 Oxygen Saturatio n [place] Test ACCEPTAB Arterial Blood Left Radial Gas Puncture Site Arterial 0.6 Blood Carboxyhem oglobin Arterial Blood 0 Methemoglobin Blood Gas A-a O2 144.2 H Differential Oxyhemoglobin 95.1 Percent Blood Gas 37.0 Temperature Blood Gas 16.0 Respiration Rate Blood Gas Actual 20 Respiration Rate Blood Gas MASK - BIPAP Modality FiO2 40.0 Blood Gas 12/5 IPAP/EPAP Ratio Blood Gas D [facility] Notified Whom Blood Gas 12/25/2018 8:47:28 Notified Time PM Urine Color YELLOW Urine Clarity SLIGHTLY CLOUDY A Urine pH 6.0 Urine Specific 1.019 [place] Urine Ketones 1+ H Urine Nitrite NEGATIVE Urine Bilirubin NEGATIVE Urine NEGATIVE Urobilinogen Urine Leukocyte NEGATIVE Esterase Urine 1 Microscopic RBC Urine 3 Microscopic WBC Urine Amorphous FEW A Crystals Urine Mucus FEW A Urine Hemoglobin NEGATIVE Urine Glucose NEGATIVE Urine Total 2+ H Protein White Blood 7.2 Count Red Blood Count 4.64 Hemoglobin 13.5 Hematocrit 40.7 Mean Corpuscular 87.7 Volume Mean Corpuscular 29.1 Hemoglobin Mean Corpuscular 33.2 Hemoglobin Zoraida nt Red Cell 13.7 Distribution Width Platelet Count 404 Mean Platelet 7.8 Volume Immature 0.600 H Granulocytes % Neutrophils % 85.6 H Lymphocytes % 6.6 L Monocytes % 7.1 Eosinophils % 0.0 Basophils % 0.1 Nucleated Red 0.0 Blood Cells % Immature 0.040 H Granulocytes # Neutrophils # 6.1 Lymphocytes # 0.5 L Monocytes # 0.5 Eosinophils # 0.0 Basophils # 0.0 Nucleated Red 0.0 Blood Cells # Sodium Level 136 Potassium Level 3.8 Chloride Level 92 L Carbon Dioxide 36 H Level Anion Gap 8 Blood Urea 20 # Nitrogen Creatinine 0.70 Est Glomerular Filtrat Rate mL/min Glucose Level 134 Calcium Level 8.9 Phosphorus Level 3.3 Magnesium Level 2.2 Medications Medication Current Medications Alendronate Sodium (Fosamax) 70 mg Mo@0630 PO Last administered on 12/24/18 08:49; Admin Dose 70 MG; Start 12/24/18 at 06:30 Gabapentin (Neurontin) 600 mg TID PO Last administered on 12/26/18 08:36; Admin Dose 600 MG; Start 12/21/18 at 21:00 Losartan Potassium (Cozaar) 100 mg DAILY PO Last administered on 12/26/18 08:36; Admin Dose 100 MG; Start 12/22/18 at 09:00 Metoprolol Succinate (Toprol Xl) 50 mg DAILY PO Last administered on 12/26/18 08:37; Admin Dose 50 MG; Start 12/22/18 at 09:00 Spironolactone (Aldactone) 25 mg DAILY PO Last administered on 12/26/18 08:36; Admin Dose 25 MG; Start 12/22/18 at 09:00 Tiotropium [place] (Spiriva) 1 inh DAILY INH Last administered on 12/26/18 10:06; Admin Dose 1 INH; Start 12/22/18 at 09:00 IV Flush (NS 3 ml) 3 ml PER PROTOCOL IV ; Start 12/21/18 at 16:00 Ondansetron HCl (Zofran Inj) 4 mg Q6H PRN IV NAUSEA/VOMITING; Start 12/21/18 at 16:00 Acetaminophen (Tylenol Tab) 650 mg Q6H PRN PO .PAIN 1-3 OR TEMP Last administered on 12/25/18 10:35; Admin Dose 650 MG; Start 12/21/18 at 16:00 Heparin Sodium (Porcine) (Heparin (5000 Units/1ml)) 5,000 unit Q8 SC Last administered on 12/26/18 06:16; Admin Dose 5,000 UNIT; Start 12/21/18 at 22:00 Albuterol/ Ipratropium (Duoneb) 3 ml Q2H RESP THERAPY PRN HHN sob Last administered on 12/25/18 17:01; Admin Dose 3 ML; Start 12/21/18 at 16:00 Guaifenesin (Robitussin Liquid Cup) 200 mg Q4H PRN PO cough Last administered on 12/25/18 09:53; Admin Dose 200 MG; Start 12/21/18 at 16:00 Fluticasone/ Vilanterol (Breo Ellipta 100-25 Mcg Inh) 1 inh DAILY INH Last administered on 12/26/18 08:33; Admin Dose 1 INH; Start 12/22/18 at 09:00 Nystatin (Nystatin Powder) 1 applic BID TOP Last administered on 12/26/18 08:33; Admin Dose 1 APPLIC; Start 12/21/18 at 21:00 Sodium Chloride (Nacl) 1 gm TID PO Last administered on 12/26/18 08:36; Admin Dose 1 GM; Start 12/22/18 at 13:00 Famotidine (Pepcid) 20 mg BID PO Last administered on 12/26/18 08:37; Admin Dose 20 MG; Start 12/24/18 at 21:00 Polyethylene Glycol (Miralax) 17 gm BID PO Last administered on 12/26/18 08:35; Admin Dose 17 GM; Start 12/24/18 at 21:00 Hydralazine HCl (Apresoline) 10 mg Q6H PRN IV SBP>160 Last administered on 12/24/18 16:48; Admin Dose 10 MG; Start 12/24/18 at 17:00 Bisacodyl (Dulcolax) 10 mg DAILY PRN PO CONSTIPATION Last administered on 12/25/18 14:36; Admin Dose 10 MG; Start 12/25/18 at 12:00 Levofloxacin/ Dextrose 100 ml @ 100 mls/hr Q24H IVPB Last administered on 12/25/18 13:16; Admin Dose 100 MLS/HR; Start 12/25/18 at 12:30 Methylprednisolone Sodium Succinate (Solu-Medrol) 40 mg Q8 IV Last administered on 12/26/18 05:33; Admin Dose 40 MG; Start 12/25/18 at 14:00 Acetylcysteine (Mucomyst) 2 ml Q6H RESP THERAPY NEB Last administered on 12/26/18 08:09; Admin Dose 2 ML; Start 12/25/18 at 14:00 Albuterol/ Ipratropium (Duoneb) 3 ml Q4H RESP THERAPY HHN Last administered on 12/26/18 08:09; Admin Dose 3 ML; Start 12/25/18 at 21:00 FELIPE AQUINO NP Dec 26, 2018 11:09
[2018-12-26] MEDS: LEVOFLOXACIN 500MG/D5W (PMX) 100 ML IVPB SCH (11:58)
[2018-12-26] MEDS ORDERED: FUROSEMIDE 20 MG INJ IV ONE (12:00)
--- NOTE | 2018-12-26 14:39 | CONS ---
Assessment/Plan Assessment/Plan Hospital Course (Demo Recall) Patient was transferred to telemetry secondary to shortness of breath currently on facemask awake in no distress WBC 7.2 neutrophils 85.6 BUN 20 creatinine 0.70 Chest x-ray from yesterday revealed persistent left lower lobe atelectasis with small left pleural effusion. Vaguepatchy right upper lobe infiltrate concerning for pneumonia unchanged. Please see full report in the chart Microbiology: Blood culture on admission grew coag negative staph species sputum culture grew Angela albicans Antimicrobials: Patient is on Levaquin Physical examination: Well-developed very pleasant fragile elderly woman who is alert in no distress. Head atraumatic normocephalic neck is supple chest rise symmetrical breath sounds clear diminished bases with scattered crackles heart S1-S2 abdomen soft bowel sounds present extremities without cyanosis Assessment: 1. Acute bronchitis/PNA ?aspiration 2. Coag negative staph bacteremia consistent with contaminant 3. Possible CHF Plan: We are going to change levofloxacin to cefepime and Diflucan, continue present care per pulmonary recommendations, continue aspiration precautions Consultation Date/Type/Reason Admit Date/Time Dec 21, 2018 at 11:58 Initial Consult Date 12/25/18 Type of Consult id Date/Time of Note DATE: 12/26/18 TIME: 14:37 Exam/Review of Systems Exam Vitals Vital Signs Date Temp Pulse Resp B/P (MAP) Pulse Ox O2 O2 Flow FiO2 Time Delivery Rate 12/26/18 97 90 50 13:21 12/26/18 98.0 17 139/65 Mask 12:34 (89) 12/26/18 4.0 09:00 Intake and Output 12/25/18 12/25/18 12/26/18 1515:00 23:00 07:00 IntakeIntake Total 1210 ml 480 ml 240 ml OutputOutput Total 650 ml 400 ml BalanceBalance 1210 ml -170 ml -160 ml Results Result Diagram: 12/26/18 0628 12/26/1828 Results 24hrs Laboratory Tests Test 12/25/18 17:27 12/25/18 20:30 12/26/18 06:00 12/26/18 06:28 Bedside Glucose 137 Blood Gas Blood arterial Specimen Source Arterial Blood 12/25/2018 8:40:58 Date Drawn PM Arterial Blood 7.436 pH (Temp corrected) Arterial Blood 53.8 H pCO2 (Temp correct) Arterial Blood 79.1 L pO2 (Temp corrected) Arterial Blood 35.4 H HCO3 Arterial Blood 9.3 H Base Excess Arterial Blood 95.7 Oxygen Saturatio n [place] Test ACCEPTAB Arterial Blood Left Radial Gas Puncture Site Arterial 0.6 Blood Carboxyhem oglobin Arterial Blood 0 Methemoglobin Blood Gas A-a O2 144.2 H Differential Oxyhemoglobin 95.1 Percent Blood Gas 37.0 Temperature Blood Gas 16.0 Respiration Rate Blood Gas Actual 20 Respiration Rate Blood Gas MASK - BIPAP Modality FiO2 40.0 Blood Gas 05/23 IPAP/EPAP Ratio Blood Gas [facility] Notified Whom Blood Gas 12/25/2018 8:47:28 Notified Time PM Urine Color YELLOW Urine Clarity SLIGHTLY CLOUDY A Urine pH 6.0 Urine Specific 1.019 [place] Urine Ketones 1+ H Urine Nitrite NEGATIVE Urine Bilirubin NEGATIVE Urine NEGATIVE Urobilinogen Urine Leukocyte NEGATIVE Esterase Urine 1 Microscopic RBC Urine 3 Microscopic WBC Urine Amorphous FEW A Crystals Urine Mucus FEW A Urine Hemoglobin NEGATIVE Urine Glucose NEGATIVE Urine Total 2+ H Protein White Blood 7.2 Count Red Blood Count 4.64 Hemoglobin 13.5 Hematocrit 40.7 Mean Corpuscular 87.7 Volume Mean Corpuscular 29.1 Hemoglobin Mean Corpuscular 33.2 Hemoglobin Zoraida nt Red Cell 13.7 Distribution Width Platelet Count 404 Mean Platelet 7.8 Volume Immature 0.600 H Granulocytes % Neutrophils % 85.6 H Lymphocytes % 6.6 L Monocytes % 7.1 Eosinophils % 0.0 Basophils % 0.1 Nucleated Red 0.0 Blood Cells % Immature 0.040 H Granulocytes # Neutrophils # 6.1 Lymphocytes # 0.5 L Monocytes # 0.5 Eosinophils # 0.0 Basophils # 0.0 Nucleated Red 0.0 Blood Cells # Sodium Level 136 Potassium Level 3.8 Chloride Level 92 L Carbon Dioxide 36 H Level Anion Gap 8 Blood Urea 20 # Nitrogen Creatinine 0.70 Est Glomerular Filtrat Rate mL/min Glucose Level 134 Calcium Level 8.9 Phosphorus Level 3.3 Magnesium Level 2.2 B-Type 1060 H Natriuretic Peptide Medications Medication Current Medications Alendronate Sodium (Fosamax) 70 mg Mo@0630 PO Last administered on 12/24/18at 08:49; Admin Dose 70 MG; Start 12/24/18 at 06:30 Gabapentin (Neurontin) 600 mg TID PO Last administered on 12/26/18 12:12; Admin Dose 600 MG; Start 12/21/18 at 21:00 Losartan Potassium (Cozaar) 100 mg DAILY PO Last administered on 12/26/18 08:36; Admin Dose 100 MG; Start 12/22/18 at 09:00 Metoprolol Succinate (Toprol Xl) 50 mg DAILY PO Last administered on 12/26/18 08:37; Admin Dose 50 MG; Start 12/22/18 at 09:00 Spironolactone (Aldactone) 25 mg DAILY PO Last administered on 12/26/18 08:36; Admin Dose 25 MG; Start 12/22/18 at 09:00 Tiotropium [place] (Spiriva) 1 inh DAILY INH Last administered on 12/26/18 10:06; Admin Dose 1 INH; Start 12/22/18 at 09:00 IV Flush (NS 3 ml) 3 ml PER PROTOCOL IV ; Start 12/21/18 at 16:00 Ondansetron HCl (Zofran Inj) 4 mg Q6H PRN IV NAUSEA/VOMITING; Start 12/21/18 at 16:00 Acetaminophen (Tylenol Tab) 650 mg Q6H PRN PO .PAIN 1-3 OR TEMP Last administered on 12/25/18 10:35; Admin Dose 650 MG; Start 12/21/18 at 16:00 Heparin Sodium (Porcine) (Heparin (5000 Units/1ml)) 5,000 unit Q8 SC Last administered on 12/26/18 14:16; Admin Dose 5,000 UNIT; Start 12/21/18 at 22:00 Albuterol/ Ipratropium (Duoneb) 3 ml Q2H RESP THERAPY PRN HHN sob Last administered on 12/25/18 17:01; Admin Dose 3 ML; Start 12/21/18 at 16:00 Guaifenesin (Robitussin Liquid Cup) 200 mg Q4H PRN PO cough Last administered on 12/25/18 09:53; Admin Dose 200 MG; Start 12/21/18 at 16:00 Fluticasone/ Vilanterol (Breo Ellipta 100-25 Mcg Inh) 1 inh DAILY INH Last administered on 12/26/18 08:33; Admin Dose 1 INH; Start 12/22/18 at 09:00 Nystatin (Nystatin Powder) 1 applic BID TOP Last administered on 12/26/18 08:33; Admin Dose 1 APPLIC; Start 12/21/18 at 21:00 Sodium Chloride (Nacl) 1 gm TID PO Last administered on 12/26/18 12:11; Admin Dose 1 GM; Start 12/22/18 at 13:00 Famotidine (Pepcid) 20 mg BID PO Last administered on 12/26/18 08:37; Admin Dose 20 MG; Start 12/24/18 at 21:00 Polyethylene Glycol (Miralax) 17 gm BID PO Last administered on 12/26/18 08:35; Admin Dose 17 GM; Start 12/24/18 at 21:00 Hydralazine HCl (Apresoline) 10 mg Q6H PRN IV SBP>160 Last administered on 12/24/18 16:48; Admin Dose 10 MG; Start 12/24/18 at 17:00 Bisacodyl (Dulcolax) 10 mg DAILY PRN PO CONSTIPATION Last administered on 12/25/18 14:36; Admin Dose 10 MG; Start 12/25/18 at 12:00 Levofloxacin/ Dextrose 100 ml @ 100 mls/hr Q24H IVPB Last administered on 12/26/18 11:58; Admin Dose 100 MLS/HR; Start 12/25/18 at 12:30 Methylprednisolone Sodium Succinate (Solu-Medrol) 40 mg Q8 IV Last administered on 12/26/18 14:12; Admin Dose 40 MG; Start 12/25/18 at 14:00 Acetylcysteine (Mucomyst) 2 ml Q6H RESP THERAPY NEB Last administered on 12/26/18 14:02; Admin Dose 2 ML; Start 12/25/18 at 14:00 Albuterol/ Ipratropium (Duoneb) 3 ml Q4H RESP THERAPY HHN Last administered on 12/26/18 14:02; Admin Dose 3 ML; Start 12/25/18 at 21:00 ZORAIDA OLSON NP Dec 26, 2018 14:39
[2018-12-26] MEDS: CEFEPIME 1GM/50 ML (PMX) 50 ML IVPB SCH ×2 (15:43→23:08)
[2018-12-26] MEDS: FLUCONAZOLE 100 MG TAB PO SCH (15:43)
[2018-12-26] MEDS: BISACODYL (EC) 5 MG TAB PO PRN (15:43)
--- NOTE | 2018-12-26 16:33 | RADRPT ---
Vent Rate: 84 bpm RR Interval: 712 msec IL Interval: 226 msec QRS Duration: 102 msec QT Interval: 424 msec QTC Interval: 502 msec P-R-T [place]: 64 - 50 - 17 degrees Sinus rhythm...normal P axis, V-rate 50- 99 Multiple ventricular premature complexes...V complexes w/ short R-R intervls Prolonged IL interval...IL >220, V-rate 50- 90 Probable left atrial enlargement...P >50mS, <-0.10mV V1 Prolonged QT interval...QTc >500mS Electronically Signed By: Tom Covarrubias
[2018-12-26] MEDS ORDERED: ACETAMINOPHEN 325 MG TAB PO PRN (22:30)
[2018-12-26] MEDS ORDERED: LORAZEPAM 1 MG TAB PO PRN (22:30)
[2018-12-27] VITALS (11 sets, daily range): BP systolic 138–150; BP diastolic 66–73; PULSE 81–96; RESP 18–19
[2018-12-27] MEDS: ALBUTEROL/IPRATROPIUM (NEB) 3 ML AMP HHN SCH ×6 (01:44→19:59)
[2018-12-27] MEDS: ACETYLCYSTEINE 20% 4 ML VIAL NEB SCH ×4 (01:44→19:59)
[2018-12-27] MEDS: METHYLPREDNISOLONE 40 MG INJ IV SCH ×3 (04:41→21:07)
[2018-12-27] MEDS: HEPARIN 5,000 UNIT/1 ML VIAL SC SCH ×3 (04:46→21:51)
[2018-12-27] MEDS ORDERED: MAGNESIUM CITRATE 300 ML BTL PO PRN (08:30)
[2018-12-27] MEDS: CEFEPIME 1GM/50 ML (PMX) 50 ML IVPB SCH ×2 (08:32→20:42)
[2018-12-27] MEDS: FLUTICASONE/VILANTEROL 100-25 INH SCH (08:34)
[2018-12-27] MEDS: POLYETHYLENE GLYCOL 17 GM PACKET PO SCH ×2 (08:34→20:42)
[2018-12-27] MEDS: LOSARTAN 50 MG TAB PO SCH (08:35)
[2018-12-27] MEDS: FLUCONAZOLE 100 MG TAB PO SCH (08:36)
[2018-12-27] MEDS: FAMOTIDINE 20 MG TAB PO SCH ×2 (08:36→20:42)
[2018-12-27] MEDS: METOPROLOL (XL) 50 MG TAB PO SCH (08:36)
[2018-12-27] MEDS: NYSTATIN 30 GM POWDER BTL TOP SCH ×2 (08:36→21:09)
[2018-12-27] MEDS: SODIUM CHLORIDE 1 GM TAB PO SCH ×3 (08:36→20:42)
[2018-12-27] MEDS: SPIRONOLACTONE 25 MG TAB PO SCH (08:36)
[2018-12-27] MEDS: GABAPENTIN 300 MG CAP PO SCH ×3 (08:36→20:42)
--- NOTE | 2018-12-27 09:07 | HP ---
DATE OF ADMISSION: 12/21/2018 The patient was admitted to Hospice on 12/26/2018 per PCP request, and the patient's request. REASON FOR ADMISSION: Acute respiratory failure, shortness of breath, failure to thrive. HISTORY OF PRESENT ILLNESS: The patient is an 88-year-old female with history of asthma, n europathy, hypertension, allergic rhinitis, nonsmoker, status post right femur fracture status post s urgery, who has been complaining of worsening shortness of breath for the past few weeks. She presen leana to the emergency department at [facility]. A chest x-ray initially showed hypoventilato ry changes with deep basilar opacities favoring atelectasis, including a lump and moderate hiatal her denton. No definite superimposed infiltrate or overt CHF. No pneumothorax. Aortic atherosclerosis tri cification is noted. Ultimately, she was seen also by multiple physicians including Dr. Valdez, the p ulmonologist, Dr. Felix, the infectious disease specialist, and the last chest x-ray done on 019 showed vague patchy right upper lobe infiltrate for the morning is unchanged. Levaquin was c hanged from that to Diflucan and cefepime by the ID specialist and IV steroids were given as well. A ll this was only started on 12/25/2018. The patient has been quite frustrated and still not feeling good and she requested to be placed on hospice. Upon evaluation, the patient is receiving a breathin g treatment. I explained to her the patient's condition, as she has pneumonia which would explain he r shortness of breath, and also told her that she has been treated for asthma exacerbation. The viola ent states that she has a poor appetite and feels weak. I told her that we would like to continue th e above treatment to see how she does before deciding termination of the above treatment, etc. The p atient is in agreement. PAST MEDICAL HISTORY: Includes asthma, osteoarthritis, neuropathy, hypertension. SURGICAL HISTORY: Right hip surgery. ALLERGIES 1. PENICILLIN. 2. CODEINE. SOCIAL HISTORY: No history of tobacco, alcohol, positive IV drug abuse none. FAMILY HISTORY: The patient does not have any family. She has a power of claim attorney. Her name is Nadir , phone number [phone]. PHYSICAL EXAMINATION: VITAL SIGNS: Temperature 97.8, pulse 84, respirations 18, blood pressure 145/66, saturation 99%. Th e patient has been placed on a nonrebreather mask. GENERAL: The patient is in no acute distress. HEENT: Normocephalic, atraumatic head. CARDIOVASCULAR: S1, S2. LUNGS: Rhonchi bilaterally. ABDOMEN: Soft, nontender. EXTREMITIES: No clubbing, cyanosis, or edema. Berg to gravity. The patient is in no acute distres s. LABORATORY: Dated yesterday, white count 7.2, hemoglobin 13.5, hematocrit 41, platelet count of 144, neutrophil 86%, lymphocytes 7%. Chemistry: Sodium 136, potassium 3.8, chloride 92, bicarbonate 36, BUN 20, creatinine 0.7, glucose of 134. BNP improved to 1060. Troponin was negative on admission. TSH was 1.4. Last chest x-ray dated yesterday on 12/25/2018 did show persistent left lower lobe ate lectasis with small left pleural effusion and shift of the mediastinal as well as the trachea t o the left midline a result of volume loss. CT showed mucus plugging, greater on the right lobe but with left lower lobe atelectasis, small bilateral pleural effusion, nodular density within the station engineer main line ior segment of the right upper lobe concerning for pneumonia. There is also a 4 mm nodule in the ant erior segment of the right lobe. Continue CT in 6 to 12 months, moderate to large right hiatal herni a, osteoporosis. ASSESSMENT AND PLAN: This is an 88-year-old female with a history of asthma, presented with acute re spiratory failure due to pneumonia, asthma exacerbation due to pneumonia. 1. Respiratory. Would recommend continuing above steroid treatment, breathing treatment and IV anti biotics. The patient is feeling better. Continue serial chest x-ray. I believe patient can improve and we discussed hospice with her, and she would like to continue treatment. I would recommend to co ntinue the above care. If there is a severe decline in her condition and patient may be more hospice appropriate. 2. Decreased oral intake. Would recommend protein supplements. May consider Ensure. 3. Recommend deep vein thrombosis prophylaxis and gastrointestinal prophylaxis. 4. Infectious disease. Continue treatment per infectious disease with more broad spectrum antibioti cs as currently being given with cefepime and Diflucan. 5. Recommend physical therapy. Patient is DNR. 6. Recommend to take her off hospice and if clinical condition worsened, the patient will be reevalu ated. Dictated By: ROSA DAY/RUSSEL Conf#: [id number] DID#: [id number] CC: ANGELA FELIX MD; AMIRA ROCKWELL MD;*EndCC*
--- NOTE | 2018-12-27 10:29 | CONS ---
Assessment/Plan Assessment/Plan Assessment/Plan (Daily) Assessment and recommendations; 1. Patient admitted with exacerbation of asthmatic bronchitis with interval improvement. 2. History of mild CHF. 3. Hypertension. 4. Gram-positive bacteremia, likely contaminant. 5. Mild hypercapnic respiratory failure Continue current supportive care. Patient responding well to current treatment regimen. Consultation Date/Type/Reason Admit Date/Time Dec 21, 2018 at 11:58 Initial Consult Date 12/25/18 Type of Consult Pulmonary Patient is a pleasant 88-year-old lady who came into the hospital with a few days history of shortness of breath chest congestion and coughing. Patient den ies any fever or chills. Patient does have chronic respiratory symptoms with history of chronic bronchitis/asthma. However according to her the symptoms got worse over the last few days. She denies any high fever, chills, body aches or myalgias. By the time I saw her, the patient appeared comfortable. Past medical history; 1. History of asthma/chronic bronchitis. 2. History of hypertension. Medications; reviewed. Allergies; penicillin and codeine. Social history; patient has been a lifelong non-smoker. Family history; noncontributory. Patient does not have any children. She lives alone by herself. Occupational history; patient was a teacher. Review of systems; denies any headache, sinus symptoms, postnasal drip. Denies any chest pain, angina. Any wheezing. Complains of chest congestion and cough with yellow sputum production. Denies any abdominal pain, nausea vomiting. Any melena hematochezia. Any edema. Complains of very mild orthopnea. General exam; elderly woman, awake alert, currently in no distress. Date/Time of Note DATE: 12/27/18 TIME: 10:27 24 HR Interval Summary Free Text/Dictation Patient's condition is improving. Reports of decreased chest congestion and coughing. Denies any wheezing. General exam; elderly woman, awake alert, currently in no distress. Exam/Review of Systems Exam Vitals Vital Signs Date Temp Pulse Resp B/P (MAP) Pulse Ox O2 O2 Flow FiO2 Time Delivery Rate 12/27/18 93 15.0 93 09:29 12/27/18 Non 09:00 Rebreather 12/27/18 97.8 84 18 145/66 07:13 (92) Intake and Output 12/26/18 12/26/1819 1515:00 23:00 07:00 IntakeIntake Total 100 ml 440 ml 250 ml OutputOutput Total 800 ml 350 ml BalanceBalance 100 ml -360 ml -100 ml Exam H EENT exam; supple neck, no JVD. No lymphadenopathy. Midline trachea. No thyromegaly. No neck masses. Chest exam; diminished breath sound bilaterally with very minimal crackles. S1- S2 audible, no murmurs. Regular rhythm. Abdomen exam; soft, nontender. Nondistended. No organomegaly. Bowel sounds are audible. Extremity exam; no peripheral edema clubbing. ELECTRICAL MECHANIC exam; no focal deficit. Results Result Diagram: 12/27/18 0720 12/27/18 0720 Results 24hrs Laboratory Tests Test 12/27/18 07:20 White Blood Count 9.3 # Red Blood Count 4.47 Hemoglobin 13.2 Hematocrit 39.9 Mean Corpuscular Volume 89.3 Mean Corpuscular Hemoglobin 29.5 Mean Corpuscular Hemoglobin Concent 33.1 Red Cell Distribution Width 13.5 Platelet Count 395 Mean Platelet Volume 7.8 Immature Granulocytes % 0.500 H Neutrophils % 90.4 H Lymphocytes % 3.0 L Monocytes % 5.9 Eosinophils % 0.0 Basophils % 0.2 Nucleated Red Blood Cells % 0.0 Immature Granulocytes # 0.050 H Neutrophils # 8.4 H Lymphocytes # 0.3 L Monocytes # 0.6 Eosinophils # 0.0 Basophils # 0.0 Nucleated Red Blood Cells # 0.0 Sodium Level 139 Potassium Level 3.3 L Chloride Level 94 L Carbon Dioxide Level 38 H Anion Gap 7 Blood Urea Nitrogen 28 H Creatinine 0.62 Est Glomerular Filtrat Rate mL/min Glucose Level 141 Calcium Level 8.6 Phosphorus Level 3.8 Magnesium Level 2.4 Medications Medication Current Medications Gabapentin (Neurontin) 600 mg TID PO Last administered on 12/27/18at 08:36; Admin Dose 600 MG; Start 12/21/18 at 21:00 Losartan Potassium (Cozaar) 100 mg DAILY PO Last administered on 12/27/18at 08:35; Admin Dose 100 MG; Start 12/22/18 at 09:00 Metoprolol Succinate (Toprol Xl) 50 mg DAILY PO Last administered on 12/27/18at 08:36; Admin Dose 50 MG; Start 12/22/18 at 09:00 Spironolactone (Aldactone) 25 mg DAILY PO Last administered on 12/27/18 08:36; Admin Dose 25 MG; Start 12/22/18 at 09:00 IV Flush (NS 3 ml) 3 ml PER PROTOCOL IV ; Start 12/21/18 at 16:00 Ondansetron HCl (Zofran Inj) 4 mg Q6H PRN IV NAUSEA/VOMITING; Start 12/21/18 at 16:00 Acetaminophen (Tylenol Tab) 650 mg Q6H PRN PO .PAIN 1-3 OR TEMP Last administered on 12/25/18 10:35; Admin Dose 650 MG; Start 12/21/18 at 16:00 Heparin Sodium (Porcine) (Heparin (5000 Units/1ml)) 5,000 unit Q8 SC Last administered on 12/27/18 04:46; Admin Dose 5,000 UNIT; Start 12/21/18 at 22:00 Albuterol/ Ipratropium (Duoneb) 3 ml Q2H RESP THERAPY PRN HHN sob Last administered on 12/25/18 17:01; Admin Dose 3 ML; Start 12/21/18 at 16:00 Guaifenesin (Robitussin Liquid Cup) 200 mg Q4H PRN PO cough Last administered on 12/25/18 09:53; Admin Dose 200 MG; Start 12/21/18 at 16:00 Fluticasone/ Vilanterol (Breo Ellipta 100-25 Mcg Inh) 1 inh DAILY INH Last administered on 12/27/18 08:34; Admin Dose 1 INH; Start 12/22/18 at 09:00 Nystatin (Nystatin Powder) 1 applic BID TOP Last administered on 12/27/18 08:36; Admin Dose 1 APPLIC; Start 12/21/18 at 21:00 Sodium Chloride (Nacl) 1 gm TID PO Last administered on 12/27/18 08:36; Admin Dose 1 GM; Start 12/22/18 at 13:00 Famotidine (Pepcid) 20 mg BID PO Last administered on 12/27/18 08:36; Admin Dose 20 MG; Start 12/24/18 at 21:00 Polyethylene Glycol (Miralax) 17 gm BID PO Last administered on 12/27/18 08:34; Admin Dose 17 GM; Start 12/24/18 at 21:00 Hydralazine HCl (Apresoline) 10 mg Q6H PRN IV SBP>160 Last administered on 12/24/18 16:48; Admin Dose 10 MG; Start 12/24/18 at 17:00 Bisacodyl (Dulcolax) 10 mg DAILY PRN PO CONSTIPATION Last administered on 12/26/18 15:43; Admin Dose 10 MG; Start 12/25/18 at 12:00 Methylprednisolone Sodium Succinate (Solu-Medrol) 40 mg Q8 IV Last administered on 12/27/18 04:41; Admin Dose 40 MG; Start 12/25/18 at 14:00 Acetylcysteine (Mucomyst) 2 ml Q6H RESP THERAPY NEB Last administered on 12/27/18 09:27; Admin Dose 2 ML; Start 12/25/18 at 14:00 Albuterol/ Ipratropium (Duoneb) 3 ml Q4H RESP THERAPY HHN Last administered on 12/27/18 09:27; Admin Dose 3 ML; Start 12/25/18 at 21:00 Cefepime HCl 50 ml @ 100 mls/hr Q12 IVPB Last administered on 12/27/18 08:32; Admin Dose 100 MLS/HR; Start 12/26/18 at 16:00 Fluconazole (Diflucan) 100 mg DAILY PO Last administered on 12/27/18 08:36; Admin Dose 100 MG; Start 12/26/18 at 16:00 Tramadol HCl (Ultram) 50 mg Q6H PRN PO MODERATE PAIN LEVEL 4-6; Start 12/26/18 at 22:30 Lorazepam (Ativan) 1 mg Q4 PRN PO ANXIETY; Start 12/26/18 at 22:30 Acetaminophen (Tylenol Tab) 650 mg Q6H PRN PO MILD PAIN(1-3)OR ELEVATED TEMP; Start 12/26/18 at 22:30 Magnesium Citrate (Citroma) 300 ml ONCE PRN PO severe constipation; Start 12/27/18 at 08:30; Stop 12/29/18 at 08:29 DAVE DACOSTA Dec 27, 2018 10:29
[2018-12-27] MEDS ORDERED: FUROSEMIDE 20 MG INJ IV ONE (11:00)
[2018-12-27] MEDS ORDERED: POTASSIUM CHLORIDE 20 MEQ POWDER FOR ORAL SOLN PO ONE (11:00)
--- NOTE | 2018-12-27 11:00 | PN ---
Date/Time of Note Date/Time of Note DATE: 12/27/18 TIME: 10:55 Assessment/Plan VTE Prophylaxis Risk score (from Ns)>0 risk: 8 SCD applied (from Nsg): Yes Pharmacological prophylaxis: heparin Lines/Catheters IV Catheter Type (from Nrsg): Saline Lock Urinary Cath still in place: Yes Reason Cath still needed: other (indicate) Assessment/Plan Hospital Course SUBJECTIVE: The patient was transferred to telemetry floor on 12/25/2018 following the rapid response because of worsening respiratory distress. The patient was placed on noninvasive positive pressure ventilation. The patient currently on 100% NRB mask OBJECTIVE: Physical Exam General: Adequately build 88 year-old female lying in bed in mild to moderate respiratory distress. HEENT: Normocephalic, atraumatic. Eyes: Anicteric sclerae, conjunctivae clear. ENT: Nasal septum midline, oral mucosa moist. Neck supple, no JVD noticed. Respiratory: Bilaterally diminished breath sounds. Use of accessory muscles of respiration. Bilateral rhonchi. On BiPAP. Cardiovascular: S1, S2 heard. Regular rate and rhythm. Abdomen: Soft, nontender, and nondistended. Bowel sounds positive in all 4 quadrants. Genitourinary: Deferred. Extremities: No cyanosis, no clubbing, no edema. Peripheral pulses palpable. Neurologic: Cranial nerves II through XII grossly intact. The patient is awake, alert, and oriented. Skin: Normal skin turgor. No skin rashes. Labs & Vitals per chart ASSESSMENT & PLAN 88-year-old female with past medical history of COPD, hypertension, and ne uropathy who presented to the emergency room with chief complaint of dyspnea with chest x-ray showing hypoventilatory changes with bibasilar opacities favoring atelectasis, who was admitted to inpatient setting for further treatment and evaluation. 1. Acute respiratory failure. Hypoxic. Etiology could be secondary to underlying COPD exacerbation. Continue patient on inhaled bronchodilators (MARTIN+ LABA) and inhaled anticholinergics. Continue the patient on tapering dose of steroids. Being followed by pulmonology. 2. Suspect pneumonia. Continue ABX as per ID. 3. Neuropathy. Continue gabapentin. 4. Osteoporosis. Continue bisphosphonates. 5. Staph aureus bacteremia. Likely from sample contamination. 6. Fluids, electrolytes, and nutrition. Low-cholesterol diet. 7. DVT prophylaxis. Subcutaneous heparin. 8. Plan. Continue inhaled bronchodilators. Continue antimicrobials as per ID. Wean off oxygen as tolerated. The patient evaluated by hospice agency and the hospice physician believes that the patient is not hospice appropriate. The patient was seen in collaboration with Dr. Rosario. Result Diagram: 12/27/1820 12/27/18 0720 Results 24hrs Laboratory Tests Test 12/27/18 07:20 White Blood Count 9.3 # Red Blood Count 4.47 Hemoglobin 13.2 Hematocrit 39.9 Mean Corpuscular Volume 89.3 Mean Corpuscular Hemoglobin 29.5 Mean Corpuscular Hemoglobin Concent 33.1 Red Cell Distribution Width 13.5 Platelet Count 395 Mean Platelet Volume 7.8 Immature Granulocytes % 0.500 H Neutrophils % 90.4 H Lymphocytes % 3.0 L Monocytes % 5.9 Eosinophils % 0.0 Basophils % 0.2 Nucleated Red Blood Cells % 0.0 Immature Granulocytes # 0.050 H Neutrophils # 8.4 H Lymphocytes # 0.3 L Monocytes # 0.6 Eosinophils # 0.0 Basophils # 0.0 Nucleated Red Blood Cells # 0.0 Sodium Level 139 Potassium Level 3.3 L Chloride Level 94 L Carbon Dioxide Level 38 H Anion Gap 7 Blood Urea Nitrogen 28 H Creatinine 0.62 Est Glomerular Filtrat Rate mL/min Glucose Level 141 Calcium Level 8.6 Phosphorus Level 3.8 Magnesium Level 2.4 Exam/Review of Systems Exam Vitals Vital Signs Date Temp Pulse Resp B/P (MAP) Pulse Ox O2 O2 Flow FiO2 Time Delivery Rate 12/27/18 93 15.0 93 09:29 12/27/18 Non 09:00 Rebreather 12/27/18 97.8 84 18 145/66 07:13 (92) Intake and Output 12/26/18 12/26/18 12/27/18 1515:00 23:00 07:00 IntakeIntake Total 100 ml 440 ml 250 ml OutputOutput Total 800 ml 350 ml BalanceBalance 100 ml -360 ml -100 ml Results Results 24hrs Laboratory Tests Test 12/27/18 07:20 White Blood Count 9.3 # Red Blood Count 4.47 Hemoglobin 13.2 Hematocrit 39.9 Mean Corpuscular Volume 89.3 Mean Corpuscular Hemoglobin 29.5 Mean Corpuscular Hemoglobin Concent 33.1 Red Cell Distribution Width 13.5 Platelet Count 395 Mean Platelet Volume 7.8 Immature Granulocytes % 0.500 H Neutrophils % 90.4 H Lymphocytes % 3.0 L Monocytes % 5.9 Eosinophils % 0.0 Basophils % 0.2 Nucleated Red Blood Cells % 0.0 Immature Granulocytes # 0.050 H Neutrophils # 8.4 H Lymphocytes # 0.3 L Monocytes # 0.6 Eosinophils # 0.0 Basophils # 0.0 Nucleated Red Blood Cells # 0.0 Sodium Level 139 Potassium Level 3.3 L Chloride Level 94 L Carbon Dioxide Level 38 H Anion Gap 7 Blood Urea Nitrogen 28 H Creatinine 0.62 Est Glomerular Filtrat Rate mL/min Glucose Level 141 Calcium Level 8.6 Phosphorus Level 3.8 Magnesium Level 2.4 Medications Medication Current Medications Gabapentin (Neurontin) 600 mg TID PO Last administered on 12/27/18 08:36; Admin Dose 600 MG; Start 12/21/18 at 21:00 Losartan Potassium (Cozaar) 100 mg DAILY PO Last administered on 12/27/18 08:35; Admin Dose 100 MG; Start 12/22/18 at 09:00 Metoprolol Succinate (Toprol Xl) 50 mg DAILY PO Last administered on 12/27/18 08:36; Admin Dose 50 MG; Start 12/22/18 at 09:00 Spironolactone (Aldactone) 25 mg DAILY PO Last administered on 12/27/18 08:36; Admin Dose 25 MG; Start 12/22/18 at 09:00 IV Flush (NS 3 ml) 3 ml PER PROTOCOL IV ; Start 12/21/18 at 16:00 Ondansetron HCl (Zofran Inj) 4 mg Q6H PRN IV NAUSEA/VOMITING; Start 12/21/18 at 16:00 Acetaminophen (Tylenol Tab) 650 mg Q6H PRN PO .PAIN 1-3 OR TEMP Last admin istered on 12/25/18 10:35; Admin Dose 650 MG; Start 12/21/18 at 16:00 Heparin Sodium (Porcine) (Heparin (5000 Units/1ml)) 5,000 unit Q8 SC Last administered on 12/27/18 04:46; Admin Dose 5,000 UNIT; Start 12/21/18 at 22:00 Albuterol/ Ipratropium (Duoneb) 3 ml Q2H RESP THERAPY PRN HHN sob Last admi nistered on 12/25/18 17:01; Admin Dose 3 ML; Start 12/21/18 at 16:00 Guaifenesin (Robitussin Liquid Cup) 200 mg Q4H PRN PO cough Last administered on 12/25/18 09:53; Admin Dose 200 MG; Start 12/21/18 at 16:00 Fluticasone/ Vilanterol (Breo Ellipta 100-25 Mcg Inh) 1 inh DAILY INH Last administered on 12/27/18 08:34; Admin Dose 1 INH; Start 12/22/18 at 09:00 Nystatin (Nystatin Powder) 1 applic BID TOP Last administered on 12/27/18 08:36; Admin Dose 1 APPLIC; Start 12/21/18 at 21:00 Sodium Chloride (Nacl) 1 gm TID PO Last administered on 12/27/18 08:36; Admin Dose 1 GM; Start 12/22/18 at 13:00 Famotidine (Pepcid) 20 mg BID PO Last administered on 12/27/18 08:36; Admin Dose 20 MG; Start 12/24/18 at 21:00 Polyethylene Glycol (Miralax) 17 gm BID PO Last administered on 12/27/18 08:34; Admin Dose 17 GM; Start 12/24/18 at 21:00 Hydralazine HCl (Apresoline) 10 mg Q6H PRN IV SBP>160 Last administered on 12/24/18 16:48; Admin Dose 10 MG; Start 12/24/18 at 17:00 Bisacodyl (Dulcolax) 10 mg DAILY PRN PO CONSTIPATION Last administered on 12/26/18 15:43; Admin Dose 10 MG; Start 12/25/18 at 12:00 Methylprednisolone Sodium Succinate (Solu-Medrol) 40 mg Q8 IV Last administered on 12/27/18 04:41; Admin Dose 40 MG; Start 12/25/18 at 14:00 Acetylcysteine (Mucomyst) 2 ml Q6H RESP THERAPY NEB Last administered on 12/27/18 09:27; Admin Dose 2 ML; Start 12/25/18 at 14:00 Albuterol/ Ipratropium (Duoneb) 3 ml Q4H RESP THERAPY HHN Last administered on 12/27/18 09:27; Admin Dose 3 ML; Start 12/25/18 at 21:00 Cefepime HCl 50 ml @ 100 mls/hr Q12 IVPB Last administered on 12/27/18at 08:32; Admin Dose 100 MLS/HR; Start 12/26/18 at 16:00 Fluconazole (Diflucan) 100 mg DAILY PO Last administered on 12/27/18at 08:36; Admin Dose 100 MG; Start 12/26/18 at 16:00 Tramadol HCl (Ultram) 50 mg Q6H PRN PO MODERATE PAIN LEVEL 4-6; Start 12/26/18 at 22:30 Lorazepam (Ativan) 1 mg Q4 PRN PO ANXIETY; Start 12/26/18 at 22:30 Acetaminophen (Tylenol Tab) 650 mg Q6H PRN PO MILD PAIN(1-3)OR ELEVATED TEMP; Start 12/26/18 at 22:30 Magnesium Citrate (Citroma) 300 ml ONCE PRN PO severe constipation Last admin istered on 12/27/18at 10:44; Admin Dose 300 ML; Start 12/27/18 at 08:30; Stop 12/29/18 at 08:29 FELIPE AQUINO NP Dec 27, 2018 11:00
--- NOTE | 2018-12-27 12:16 | CONS ---
Assessment/Plan Assessment/Plan Hospital Course (Demo Recall) No events, on NRB mask, looks comfortable, no fevers Chest x-ray from 12/25 revealed persistent left lower lobe atelectasis with small left pleural effusion. Vague patchy right upper lobe infiltrate concerning for pneumonia unchanged. Please see full report in the chart Microbiology: Blood culture on admission grew coag negative staph species sputum culture grew Angela albicans Antimicrobials: Cefepime Diflucan Physical examination: Well-developed very pleasant fragile elderly woman who is in no distress. Head atraumatic normocephalic neck is supple chest rise symmetrical breath sounds clear diminished bases with scattered crackles heart S1-S2 abdomen soft bowel sounds present extremities without cyanosis Assessment: 1. Acute bronchitis/PNA ?aspiration 2. Coag negative staph bacteremia consistent with contaminant 3. Possible CHF Plan: Clinically unchanged, pulmonary rec-s noted, continue abx, steroids, continue aspiration precautions Consultation Date/Type/Reason Admit Date/Time Dec 21, 2018 at 11:58 Initial Consult Date 12/25/18 Type of Consult id Date/Time of Note DATE: 12/27/18 TIME: 12:13 Exam/Review of Systems Exam Vitals Vital Signs Date Temp Pulse Resp B/P (MAP) Pulse Ox O2 O2 Flow FiO2 Time Delivery Rate 12/27/18 98.3 88 18 144/69 99 11:08 (94) 12/27/18 15.0 93 09:29 12/27/18 Non 09:00 Rebreather Intake and Output 12/26/18 12/26/18 12/27/18 1515:00 23:00 07:00 IntakeIntake Total 100 ml 440 ml 250 ml OutputOutput Total 800 ml 350 ml BalanceBalance 100 ml -360 ml -100 ml Results Result Diagram: 12/27/18 0720 12/27/18 0720 Results 24hrs Laboratory Tests Test 12/27/18 07:20 White Blood Count 9.3 # Red Blood Count 4.47 Hemoglobin 13.2 Hematocrit 39.9 Mean Corpuscular Volume 89.3 Mean Corpuscular Hemoglobin 29.5 Mean Corpuscular Hemoglobin Concent 33.1 Red Cell Distribution Width 13.5 Platelet Count 395 Mean Platelet Volume 7.8 Immature Granulocytes % 0.500 H Neutrophils % 90.4 H Lymphocytes % 3.0 L Monocytes % 5.9 Eosinophils % 0.0 Basophils % 0.2 Nucleated Red Blood Cells % 0.0 Immature Granulocytes # 0.050 H Neutrophils # 8.4 H Lymphocytes # 0.3 L Monocytes # 0.6 Eosinophils # 0.0 Basophils # 0.0 Nucleated Red Blood Cells # 0.0 Sodium Level 139 Potassium Level 3.3 L Chloride Level 94 L Carbon Dioxide Level 38 H Anion Gap 7 Blood Urea Nitrogen 28 H Creatinine 0.62 Est Glomerular Filtrat Rate mL/min Glucose Level 141 Calcium Level 8.6 Phosphorus Level 3.8 Magnesium Level 2.4 Medications Medication Current Medications Gabapentin (Neurontin) 600 mg TID PO Last administered on 12/27/18 08:36; Admin Dose 600 MG; Start 12/21/18 at 21:00 Losartan Potassium (Cozaar) 100 mg DAILY PO Last administered on 12/27/18 08:35; Admin Dose 100 MG; Start 12/22/18 at 09:00 Metoprolol Succinate (Toprol Xl) 50 mg DAILY PO Last administered on 12/27/18 08:36; Admin Dose 50 MG; Start 12/22/18 at 09:00 Spironolactone (Aldactone) 25 mg DAILY PO Last administered on 12/27/18 08:36; Admin Dose 25 MG; Start 12/22/18 at 09:00 IV Flush (NS 3 ml) 3 ml PER PROTOCOL IV ; Start 12/21/18 at 16:00 Ondansetron HCl (Zofran Inj) 4 mg Q6H PRN IV NAUSEA/VOMITING; Start 12/21/18 at 16:00 Acetaminophen (Tylenol Tab) 650 mg Q6H PRN PO .PAIN 1-3 OR TEMP Last administered on 12/25/18 10:35; Admin Dose 650 MG; Start 12/21/18 at 16:00 Heparin Sodium (Porcine) (Heparin (5000 Units/1ml)) 5,000 unit Q8 SC Last administered on 12/27/18 04:46; Admin Dose 5,000 UNIT; Start 12/21/18 at 22:00 Albuterol/ Ipratropium (Duoneb) 3 ml Q2H RESP THERAPY PRN HHN sob Last administered on 12/25/18 17:01; Admin Dose 3 ML; Start 12/21/18 at 16:00 Guaifenesin (Robitussin Liquid Cup) 200 mg Q4H PRN PO cough Last administered on 12/25/18 09:53; Admin Dose 200 MG; Start 12/21/18 at 16:00 Fluticasone/ Vilanterol (Breo Ellipta 100-25 Mcg Inh) 1 inh DAILY INH Last administered on 12/27/18 08:34; Admin Dose 1 INH; Start 12/22/18 at 09:00 Nystatin (Nystatin Powder) 1 applic BID TOP Last administered on 12/27/18 08: 36; Admin Dose 1 APPLIC; Start 12/21/18 at 21:00 Sodium Chloride (Nacl) 1 gm TID PO Last administered on 12/27/18 08:36; Admin Dose 1 GM; Start 12/22/18 at 13:00 Famotidine (Pepcid) 20 mg BID PO Last administered on 12/27/18 08:36; Admin Dose 20 MG; Start 12/24/18 at 21:00 Polyethylene Glycol (Miralax) 17 gm BID PO Last administered on 12/27/18 08:34; Admin Dose 17 GM; Start 12/24/18 at 21:00 Hydralazine HCl (Apresoline) 10 mg Q6H PRN IV SBP>160 Last administered on 12/24/18 16:48; Admin Dose 10 MG; Start 12/24/18 at 17:00 Bisacodyl (Dulcolax) 10 mg DAILY PRN PO CONSTIPATION Last administered on 12/26/18 15:43; Admin Dose 10 MG; Start 12/25/18 at 12:00 Methylprednisolone Sodium Succinate (Solu-Medrol) 40 mg Q8 IV Last administered on 12/27/18 04:41; Admin Dose 40 MG; Start 12/25/18 at 14:00 Acetylcysteine (Mucomyst) 2 ml Q6H RESP THERAPY NEB Last administered on 12/27/18 09:27; Admin Dose 2 ML; Start 12/25/18 at 14:00 Albuterol/ Ipratropium (Duoneb) 3 ml Q4H RESP THERAPY HHN Last administered on 12/27/18 09:27; Admin Dose 3 ML; Start 12/25/18 at 21:00 Cefepime HCl 50 ml @ 100 mls/hr Q12 IVPB Last administered on 12/27/18 08:32; Admin Dose 100 MLS/HR; Start 12/26/18 at 16:00 Fluconazole (Diflucan) 100 mg DAILY PO Last administered on 12/27/18at 08:36; Admin Dose 100 MG; Start 12/26/18 at 16:00 Tramadol HCl (Ultram) 50 mg Q6H PRN PO MODERATE PAIN LEVEL 4-6; Start 12/26/18 at 22:30 Lorazepam (Ativan) 1 mg Q4 PRN PO ANXIETY; Start 12/26/18 at 22:30 Acetaminophen (Tylenol Tab) 650 mg Q6H PRN PO MILD PAIN(1-3)OR ELEVATED TEMP; Start 12/26/18 at 22:30 Magnesium Citrate (Citroma) 300 ml ONCE PRN PO severe constipation Last administered on 12/27/18at 10:44; Admin Dose 300 ML; Start 12/27/18 at 08:30; Stop 12/29/18 at 08:29 ZORAIDA OLSON NP Dec 27, 2018 12:16
[2018-12-28] VITALS (10 sets, daily range): BP systolic 128–155; BP diastolic 69–81; PULSE 75–94; RESP 18
[2018-12-28] MEDS: ALBUTEROL/IPRATROPIUM (NEB) 3 ML AMP HHN SCH ×6 (01:21→19:26)
[2018-12-28] MEDS: ACETYLCYSTEINE 20% 4 ML VIAL NEB SCH ×4 (01:21→19:26)
[2018-12-28] MEDS: METHYLPREDNISOLONE 40 MG INJ IV SCH ×3 (06:30→21:08)
[2018-12-28] MEDS: HEPARIN 5,000 UNIT/1 ML VIAL SC SCH ×3 (07:19→21:10)
[2018-12-28] MEDS: FLUCONAZOLE 100 MG TAB PO SCH (08:01)
[2018-12-28] MEDS: LOSARTAN 50 MG TAB PO SCH (08:01)
[2018-12-28] MEDS: METOPROLOL (XL) 50 MG TAB PO SCH (08:02)
[2018-12-28] MEDS: SPIRONOLACTONE 25 MG TAB PO SCH (08:03)
[2018-12-28] MEDS: SODIUM CHLORIDE 1 GM TAB PO SCH ×3 (08:03→21:07)
[2018-12-28] MEDS: FAMOTIDINE 20 MG TAB PO SCH ×2 (08:03→21:08)
[2018-12-28] MEDS: GABAPENTIN 300 MG CAP PO SCH ×3 (08:03→21:07)
[2018-12-28] MEDS: FLUTICASONE/VILANTEROL 100-25 INH SCH (08:03)
[2018-12-28] MEDS: NYSTATIN 30 GM POWDER BTL TOP SCH (08:04)
[2018-12-28] MEDS: POLYETHYLENE GLYCOL 17 GM PACKET PO SCH ×2 (08:04→21:00)
[2018-12-28] MEDS: CEFEPIME 1GM/50 ML (PMX) 50 ML IVPB SCH ×2 (08:04→21:07)
--- NOTE | 2018-12-28 10:43 | PN ---
Date/Time of Note Date/Time of Note DATE: 12/28/18 TIME: 10:42 Assessment/Plan VTE Prophylaxis Risk score (from Nsg)>0 risk: 8 SCD applied (from Nsg): Yes Pharmacological prophylaxis: heparin Lines/Catheters IV Catheter Type (from Nrsg): Saline Lock Urinary Cath still in place: Yes Reason Cath still needed: terminal illness/intractable pain Assessment/Plan Hospital Course SUBJECTIVE: The patient was on BiPAP over last night. The patient currently on 100% NRB mask OBJECTIVE: Physical Exam General: Adequately build 88 year-old female lying in bed in mild to moderate respiratory distress. HEENT: Normocephalic, atraumatic. Eyes: Anicteric sclerae, conjunctivae clear. ENT: Nasal septum midline, oral mucosa moist. Neck supple, no JVD noticed. Respiratory: Bilaterally diminished breath sounds. Use of accessory muscles of respiration. Bilateral rhonchi. On 100% nonrebreather mask. Cardiovascular: S1, S2 heard. Regular rate and rhythm. Abdomen: Soft, nontender, and nondistended. Bowel sounds positive in all 4 quadrants. Genitourinary: Deferred. Extremities: No cyanosis, no clubbing, no edema. Peripheral pulses palpable. Neurologic: Cranial nerves II through XII grossly intact. The patient is awake, alert, and oriented. Skin: Normal skin turgor. No skin rashes. Labs & Vitals per chart ASSESSMENT & PLAN 88-year-old female with past medical history of COPD, hypertension, and neuropathy who presented to the emergency room with chief complaint of dyspnea with chest x-ray showing hypoventilatory changes with bibasilar opacities favoring atelectasis, who was admitted to inpatient setting for further t reatment and evaluation. 1. Acute respiratory failure. Hypoxic. Etiology could be secondary to underlying COPD exacerbation. Continue patient on inhaled bronchodilators (MARTIN+ LABA) and inhaled anti cholinergics. Continue the patient on tapering dose of steroids. Being followed by pulmonology. 2. Suspect pneumonia. Continue ABX as per ID. 3. Neuropathy. Continue gabapentin. 4. Osteoporosis. Continue bisphosphonates. 5. Staph aureus bacteremia. Likely from sample contamination. 6. Fluids, electrolytes, and nutrition. Low-cholesterol diet. 7. DVT prophylaxis. Subcutaneous heparin. 8. Plan. Continue inhaled bronchodilators. Continue antimicrobials as per ID. Wean off oxygen as tolerated. The patient evaluated by hospice agency and the hospice physician believes that the patient is not hospice appropriate. The patient was seen in collaboration with Dr. Rosario. Result Diagram: 12/28/18 0733 12/28/18 0733 Results 24hrs Laboratory Tests Test 12/28/18 03:00 12/28/18 07:00 12/28/18 07:33 Blood Gas Specimen Blood arterial Blood arterial Source Arterial Blood Date 12/28/2018 3:00:30 AM 12/28/2018 7:15:27 AM Drawn Arterial Blood pH 7.291 *L 7.382 (Temp corrected) Arterial Blood pCO2 93.0 *H 73.0 H (Temp correct) Arterial Blood pO2 136.3 H 77.0 L (Temp corrected) Arterial Blood HCO3 43.8 *H 42.4 *H Arterial Blood Base 12.8 H 13.8 H Excess Arterial Blood 98.2 94.7 L Oxygen Saturation Adonis Test N/A ACCEPTAB Arterial Blood Gas Right Brachial Right Radial Puncture Site Arterial 0.3 0.4 Blood Carboxyhemoglob in Arterial Blood 0.1 0.1 Methemoglobin Blood Gas A-a O2 483.7 H 563.0 H Differential Oxyhemoglobin Percent 97.8 94.2 Blood Gas Temperature 37.0 37.0 Blood Gas Respiration 16.0 24.0 Rate Blood Gas Actual 17 26 Respiration Rate Blood Gas Modality MASK - BIPAP MASK - BIPAP FiO2 100.0 100.0 Blood Gas Pressure 10 13 Support Blood Gas IPAP/EPAP 1/5 18/5 Ratio Blood Gas Critical L RJ TAPIA RN Value Read Back Blood Gas Notified UP TM Whom Blood Gas Notified 12/28/2018 3:12:03 AM 12/28/2018 7:40:16 AM Time White Blood Count 8.4 Red Blood Count 4.64 Hemoglobin 13.3 Hematocrit 42.7 Mean Corpuscular 92.0 Volume Mean Corpuscular 28.7 L Hemoglobin Mean Corpuscular 31.1 L Hemoglobin Concent Red Cell Distribution 14.0 Width Platelet Count 392 Mean Platelet Volume 8.0 Immature Granulocytes 0.700 H % Neutrophils % 87.9 H Lymphocytes % 3.9 L Monocytes % 7.4 Eosinophils % 0.0 Basophils % 0.1 Nucleated Red Blood 0.0 Cells % Immature Granulocytes 0.060 H # Neutrophils # 7.3 Lymphocytes # 0.3 L Monocytes # 0.6 Eosinophils # 0.0 Basophils # 0.0 Nucleated Red Blood 0.0 Cells # Sodium Level 142 Potassium Level 4.1 Chloride Level 95 L Carbon Dioxide Level 42 *H Anion Gap 5 Blood Urea Nitrogen 33 H Creatinine 0.72 Est Glomerular Filtrat Rate mL/min Glucose Level 143 Calcium Level 8.8 Phosphorus Level 3.8 Magnesium Level 3.3 H Exam/Review of Systems Exam Vitals Vital Signs Date Temp Pulse Resp B/P (MAP) Pulse Ox O2 O2 Flow FiO2 Time Delivery Rate 12/28/18 82 98 100 08:26 12/28/18 Non 15.0 08:10 Rebreather 12/28/18 98.2 18 136/69 07:10 (91) Intake and Output 12/27/18 12/27/18 12/28/18 1515:00 23:00 07:00 IntakeIntake Total 100 ml 500 ml OutputOutput Total 750 ml 350 ml BalanceBalance 100 ml -250 ml -350 ml Results Results 24hrs Laboratory Tests Test 12/28/18 03:00 12/28/18 07:00 12/28/18 07:33 Blood Gas Specimen Blood arterial Blood arterial Source Arterial Blood Date 12/28/2018 3:00:30 AM 12/28/2018 7:15:27 AM Drawn Arterial Blood pH 7.291 *L 7.382 (Temp corrected) Arterial Blood pCO2 93.0 *H 73.0 H (Temp correct) Arterial Blood pO2 136.3 H 77.0 L (Temp corrected) Arterial Blood HCO3 43.8 *H 42.4 *H Arterial Blood Base 12.8 H 13.8 H Excess Arterial Blood 98.2 94.7 L Oxygen Saturation Adonis Test N/A ACCEPTAB Arterial Blood Gas Right Brachial Right Radial Puncture Site Arterial 0.3 0.4 Blood Carboxyhemoglob in Arterial Blood 0.1 0.1 Methemoglobin Blood Gas A-a O2 483.7 H 563.0 H Differential Oxyhemoglobin Percent 97.8 94.2 Blood Gas Temperature 37.0 37.0 Blood Gas Respiration 16.0 24.0 Rate Blood Gas Actual 17 26 Respiration Rate Blood Gas Modality MASK - BIPAP MASK - BIPAP FiO2 100.0 100.0 Blood Gas Pressure 10 13 Support Blood Gas IPAP/EPAP /5 18/5 Ratio Blood Gas Critical L RJ TAPIA RN Value Read Back Blood Gas Notified UP TM Whom Blood Gas Notified 12/28/2018 3:12:03 AM 12/28/2018 7:40:16 AM Time White Blood Count 8.4 Red Blood Count 4.64 Hemoglobin 13.3 Hematocrit 42.7 Mean Corpuscular 92.0 Volume Mean Corpuscular 28.7 L Hemoglobin Mean Corpuscular 31.1 L Hemoglobin Concent Red Cell Distribution 14.0 Width Platelet Count 392 Mean Platelet Volume 8.0 Immature Granulocytes 0.700 H % Neutrophils % 87.9 H Lymphocytes % 3.9 L Monocytes % 7.4 Eosinophils % 0.0 Basophils % 0.1 Nucleated Red Blood 0.0 Cells % Immature Granulocytes 0.060 H # Neutrophils # 7.3 Lymphocytes # 0.3 L Monocytes # 0.6 Eosinophils # 0.0 Basophils # 0.0 Nucleated Red Blood 0.0 Cells # Sodium Level 142 Potassium Level 4.1 Chloride Level 95 L Carbon Dioxide Level 42 *H Anion Gap 5 Blood Urea Nitrogen 33 H Creatinine 0.72 Est Glomerular Filtrat Rate mL/min Glucose Level 143 Calcium Level 8.8 Phosphorus Level 3.8 Magnesium Level 3.3 H Medications Medication Current Medications Gabapentin (Neurontin) 600 mg TID PO Last administered on 12/28/18 08:03; Admin Dose 600 MG; Start 12/21/18 at 21:00 Losartan Potassium (Cozaar) 100 mg DAILY PO Last administered on 12/28/18at 08:01; Admin Dose 100 MG; Start 12/22/18 at 09:00 Metoprolol Succinate (Toprol Xl) 50 mg DAILY PO Last administered on 12/28/18at 08:02; Admin Dose 50 MG; Start 12/22/18 at 09:00 Spironolactone (Aldactone) 25 mg DAILY PO Last administered on 12/28/18 08:03; Admin Dose 25 MG; Start 12/22/18 at 09:00 IV Flush (NS 3 ml) 3 ml PER PROTOCOL IV ; Start 12/21/18 at 16:00 Ondansetron HCl (Zofran Inj) 4 mg Q6H PRN IV NAUSEA/VOMITING Last administered on 12/27/18at 20:52; Admin Dose 4 MG; Start 12/21/18 at 16:00 Acetaminophen (Tylenol Tab) 650 mg Q6H PRN PO .PAIN 1-3 OR TEMP Last administered on 12/25/18 10:35; Admin Dose 650 MG; Start 12/21/18 at 16:00 Heparin Sodium (Porcine) (Heparin (5000 Units/1ml)) 5,000 unit Q8 SC Last administered on 12/28/18 07:19; Admin Dose 5,000 UNIT; Start 12/21/18 at 22:00 Albuterol/ Ipratropium (Duoneb) 3 ml Q2H RESP THERAPY PRN HHN sob Last administered on 12/25/18 17:01; Admin Dose 3 ML; Start 12/21/18 at 16:00 Guaifenesin (Robitussin Liquid Cup) 200 mg Q4H PRN PO cough Last administered on 12/25/18 09:53; Admin Dose 200 MG; Start 12/21/18 at 16:00 Fluticasone/ Vilanterol (Breo Ellipta 100-25 Mcg Inh) 1 inh DAILY INH Last administered on 12/28/18 08:03; Admin Dose 1 INH; Start 12/22/18 at 09:00 Nystatin (Nystatin Powder) 1 applic BID TOP Last administered on 12/28/18 08:04; Admin Dose 1 APPLIC; Start 12/21/18 at 21:00 Sodium Chloride (Nacl) 1 gm TID PO Last administered on 12/28/18 08:03; Admin Dose 1 GM; Start 12/22/18 at 13:00 Famotidine (Pepcid) 20 mg BID PO Last administered on 12/28/18 08:03; Admin Dose 20 MG; Start 12/24/18 at 21:00 Polyethylene Glycol (Miralax) 17 gm BID PO Last administered on 12/27/18 20:42; Admin Dose 17 GM; Start 12/24/18 at 21:00 Hydralazine HCl (Apresoline) 10 mg Q6H PRN IV SBP>160 Last administered on 12/24/18 16:48; Admin Dose 10 MG; Start 12/24/18 at 17:00 Bisacodyl (Dulcolax) 10 mg DAILY PRN PO CONSTIPATION Last administered on 12/26/18 15:43; Admin Dose 10 MG; Start 12/25/18 at 12:00 Methylprednisolone Sodium Succinate (Solu-Medrol) 40 mg Q8 IV Last administered on 12/28/18 06:30; Admin Dose 40 MG; Start 12/25/18 at 14:00 Acetylcysteine (Mucomyst) 2 ml Q6H RESP THERAPY NEB Last administered on 12/28/18 08:26; Admin Dose 2 ML; Start 12/25/18 at 14:00 Albuterol/ Ipratropium (Duoneb) 3 ml Q4H RESP THERAPY HHN Last administered on 12/28/18 08:26; Admin Dose 3 ML; Start 12/25/18 at 21:00 Cefepime HCl 50 ml @ 100 mls/hr Q12 IVPB Last administered on 12/28/18 08:04; Admin Dose 100 MLS/HR; Start 12/26/18 at 16:00 Fluconazole (Diflucan) 100 mg DAILY PO Last administered on 12/28/18 08:01; Admin Dose 100 MG; Start 12/26/18 at 16:00 Tramadol HCl (Ultram) 50 mg Q6H PRN PO MODERATE PAIN LEVEL 4-6; Start 12/26/18 at 22:30 Lorazepam (Ativan) 1 mg Q4 PRN PO ANXIETY; Start 12/26/18 at 22:30 Acetaminophen (Tylenol Tab) 650 mg Q6H PRN PO MILD PAIN(1-3)OR ELEVATED TEMP; Start 12/26/18 at 22:30 Magnesium Citrate (Citroma) 300 ml ONCE PRN PO severe constipation Last administered on 12/27/18at 10:44; Admin Dose 300 ML; Start 12/27/18 at 08:30; Stop 12/29/18 at 08:29 FELIPE AQUINO NP Dec 28, 2018 10:43
--- NOTE | 2018-12-28 10:54 | CONS ---
Consultation Date/Type/Reason Admit Date/Time Dec 21, 2018 at 11:58 Initial Consult Date 12/25/18 Type of Consult Pulmonary Patient is a pleasant 88-year-old lady who came into the hospital with a few days history of shortness of breath chest congestion and coughing. Patient denies any fever or chills. Patient does have chronic respiratory symptoms with history of chronic bronchitis/asthma. However according to her the symptoms got worse over the last few days. She denies any high fever, chills, body aches or myalgias. By the time I saw her, the patient appeared comfortable. Past medical history; 1. History of asthma/chronic bronchitis. 2. History of hypertension. Medications; reviewed. Allergies; penicillin and codeine. Social history; patient has been a lifelong non-smoker. Family history; noncontributory. Patient does not have any children. She lives alone by herself. Occupational history; patient was a teacher. Review of systems; denies any headache, sinus symptoms, postnasal drip. Denies any chest pain, angina. Any wheezing. Complains of chest congestion and cough with yellow sputum production. Denies any abdominal pain, nausea vomiting. Any melena hematochezia. Any edema. Complains of very mild orthopnea. General exam; elderly woman, awake alert, currently in no distress. Date/Time of Note DATE: 12/28/18 TIME: 10:51 24 HR Interval Summary Free Text/Dictation Patient's condition is stable. Still on 100% nonrebreather for hypoxemia. Patient herself denies any shortness of breath, coughing, wheezing or any sputum production. General exam; elderly woman, awake alert, currently no distress. H ENT exam; supple neck, no JVD. No lymphadenopathy. Midline trachea. No thyromegaly. Pharynx is clear. No neck masses. Chest exam; diminished but clear breath sounds. No added sounds. S1-S2 audible, no murmurs. Regular rhythm. Abdomen exam; soft, no organomegaly. Nontender. Scaphoid. Bowel sounds are audible. Extremity exam; no peripheral edema clubbing. [employer] exam; no focal deficit. ABG from yesterday showing persistent hypercapnia with interval improvement. Assessment and recommendations; 1. Patient admitted with asthmatic bronchitis with likely underlying chronic type II respiratory failure with hypercapnia. Slightly improved. pH is compensated. Patient clinically is not in any distress. 2. Scant left lower lobe pneumonia/subsegmental atelectasis. 3. History of hypertension and neuropathy. 4. Coagulase negative bacteremia likely contaminant. Continue current supportive care. Continue current bronchodilator regimen as well as Solu-Medrol dosing. Wean down FiO2 to keep O2 saturation around 80%. Continue nocturnal BiPAP. Consider stopping antibiotic. Exam/Review of Systems Exam Vitals Vital Signs Date Temp Pulse Resp B/P (MAP) Pulse Ox O2 O2 Flow FiO2 Time Delivery Rate 12/28/18 82 98 100 08:26 12/28/18 Non 15.0 08:10 Rebreather 12/28/18 98.2 18 136/69 07:10 (91) Intake and Output 12/27/18 12/27/18 12/28/18 1515:00 23:00 07:00 IntakeIntake Total 100 ml 500 ml OutputOutput Total 750 ml 350 ml BalanceBalance 100 ml -250 ml -350 ml Results Result Diagram: 12/28/18 0733 12/28/18 0733 Results 24hrs Laboratory Tests Test 12/28/18 03:00 12/28/18 07:00 12/28/18 07:33 Blood Gas Specimen Blood arterial Blood arterial Source Arterial Blood Date 12/28/2018 3:00:30 AM 12/28/2018 7:15:27 AM Drawn Arterial Blood pH 7.291 *L 7.382 (Temp corrected) Arterial Blood pCO2 93.0 *H 73.0 H (Temp correct) Arterial Blood pO2 136.3 H 77.0 L (Temp corrected) Arterial Blood HCO3 43.8 *H 42.4 *H Arterial Blood Base 12.8 H 13.8 H Excess Arterial Blood 98.2 94.7 L Oxygen Saturation Adonis Test N/A ACCEPTAB Arterial Blood Gas Right Brachial Right Radial Puncture Site Arterial 0.3 0.4 Blood Carboxyhemoglob in Arterial Blood 0.1 0.1 Methemoglobin Blood Gas A-a O2 483.7 H 563.0 H Differential Oxyhemoglobin Percent 97.8 94.2 Blood Gas Temperature 37.0 37.0 Blood Gas Respiration 16.0 24.0 Rate Blood Gas Actual 17 26 Respiration Rate Blood Gas Modality MASK - BIPAP MASK - BIPAP FiO2 100.0 100.0 Blood Gas Pressure 10 13 Support Blood Gas IPAP/EPAP 06/23 03/11 Ratio Blood Gas Critical L RJ TAPIA RN Value Read Back Blood Gas Notified UP TM Whom Blood Gas Notified 12/28/2018 3:12:03 AM 12/28/2018 7:40:16 AM Time White Blood Count 8.4 Red Blood Count 4.64 Hemoglobin 13.3 Hematocrit 42.7 Mean Corpuscular 92.0 Volume Mean Corpuscular 28.7 L Hemoglobin Mean Corpuscular 31.1 L Hemoglobin Concent Red Cell Distribution 14.0 Width Platelet Count 392 Mean Platelet Volume 8.0 Immature Granulocytes 0.700 H % Neutrophils % 87.9 H Lymphocytes % 3.9 L Monocytes % 7.4 Eosinophils % 0.0 Basophils % 0.1 Nucleated Red Blood 0.0 Cells % Immature Granulocytes 0.060 H # Neutrophils # 7.3 Lymphocytes # 0.3 L Monocytes # 0.6 Eosinophils # 0.0 Basophils # 0.0 Nucleated Red Blood 0.0 Cells # Sodium Level 142 Potassium Level 4.1 Chloride Level 95 L Carbon Dioxide Level 42 *H Anion Gap 5 Blood Urea Nitrogen 33 H Creatinine 0.72 Est Glomerular Filtrat Rate mL/min Glucose Level 143 Calcium Level 8.8 Phosphorus Level 3.8 Magnesium Level 3.3 H Medications Medication Current Medications Gabapentin (Neurontin) 600 mg TID PO Last administered on 12/28/18 08:03; Admin Dose 600 MG; Start 12/21/18 at 21:00 Losartan Potassium (Cozaar) 100 mg DAILY PO Last administered on 12/28/18 08:01; Admin Dose 100 MG; Start 12/22/18 at 09:00 Metoprolol Succinate (Toprol Xl) 50 mg DAILY PO Last administered on 12/28/18 08:02; Admin Dose 50 MG; Start 12/22/18 at 09:00 Spironolactone (Aldactone) 25 mg DAILY PO Last administered on 12/28/18 08:03; Admin Dose 25 MG; Start 12/22/18 at 09:00 IV Flush (NS 3 ml) 3 ml PER PROTOCOL IV ; Start 12/21/18 at 16:00 Ondansetron HCl (Zofran Inj) 4 mg Q6H PRN IV NAUSEA/VOMITING Last administered on 12/27/18at 20:52; Admin Dose 4 MG; Start 12/21/18 at 16:00 Acetaminophen (Tylenol Tab) 650 mg Q6H PRN PO .PAIN 1-3 OR TEMP Last administered on 12/25/18 10:35; Admin Dose 650 MG; Start 12/21/18 at 16:00 Heparin Sodium (Porcine) (Heparin (5000 Units/1ml)) 5,000 unit Q8 SC Last administered on 12/28/18 07:19; Admin Dose 5,000 UNIT; Start 12/21/18 at 22:00 Albuterol/ Ipratropium (Duoneb) 3 ml Q2H RESP THERAPY PRN HHN sob Last administered on 12/25/18 17:01; Admin Dose 3 ML; Start 12/21/18 at 16:00 Guaifenesin (Robitussin Liquid Cup) 200 mg Q4H PRN PO cough Last administered on 12/25/18 09:53; Admin Dose 200 MG; Start 12/21/18 at 16:00 Fluticasone/ Vilanterol (Breo Ellipta 100-25 Mcg Inh) 1 inh DAILY INH Last administered on 12/28/18 08:03; Admin Dose 1 INH; Start 12/22/18 at 09:00 Nystatin (Nystatin Powder) 1 applic BID TOP Last administered on 12/28/18 08:0 4; Admin Dose 1 APPLIC; Start 12/21/18 at 21:00 Sodium Chloride (Nacl) 1 gm TID PO Last administered on 12/28/18 08:03; Admin Dose 1 GM; Start 12/22/18 at 13:00 Famotidine (Pepcid) 20 mg BID PO Last administered on 12/28/18 08:03; Admin Dose 20 MG; Start 12/24/18 at 21:00 Polyethylene Glycol (Miralax) 17 gm BID PO Last administered on 12/27/18 20:42; Admin Dose 17 GM; Start 12/24/18 at 21:00 Hydralazine HCl (Apresoline) 10 mg Q6H PRN IV SBP>160 Last administered on 12/24/18 16:48; Admin Dose 10 MG; Start 12/24/18 at 17:00 Bisacodyl (Dulcolax) 10 mg DAILY PRN PO CONSTIPATION Last administered on 12/26/18 15:43; Admin Dose 10 MG; Start 12/25/18 at 12:00 Methylprednisolone Sodium Succinate (Solu-Medrol) 40 mg Q8 IV Last administered on 12/28/18 06:30; Admin Dose 40 MG; Start 12/25/18 at 14:00 Acetylcysteine (Mucomyst) 2 ml Q6H RESP THERAPY NEB Last administered on 12/28/18 08:26; Admin Dose 2 ML; Start 12/25/18 at 14:00 Albuterol/ Ipratropium (Duoneb) 3 ml Q4H RESP THERAPY HHN Last administered on 12/28/18 08:26; Admin Dose 3 ML; Start 12/25/18 at 21:00 Cefepime HCl 50 ml @ 100 mls/hr Q12 IVPB Last administered on 12/28/18 08:04; Admin Dose 100 MLS/HR; Start 12/26/18 at 16:00 Fluconazole (Diflucan) 100 mg DAILY PO Last administered on 12/28/18 08:01; Admin Dose 100 MG; Start 12/26/18 at 16:00 Tramadol HCl (Ultram) 50 mg Q6H PRN PO MODERATE PAIN LEVEL 4-6; Start 12/26/18 at 22:30 Lorazepam (Ativan) 1 mg Q4 PRN PO ANXIETY; Start 12/26/18 at 22:30 Acetaminophen (Tylenol Tab) 650 mg Q6H PRN PO MILD PAIN(1-3)OR ELEVATED TEMP; Start 12/26/18 at 22:30 Magnesium Citrate (Citroma) 300 ml ONCE PRN PO severe constipation Last administered on 12/27/18at 10:44; Admin Dose 300 ML; Start 12/27/18 at 08:30; Stop 12/29/18 at 08:29 DAVE DACOSTA Dec 28, 2018 10:54
--- NOTE | 2018-12-28 11:56 | CONS ---
Assessment/Plan Assessment/Plan Hospital Course (Demo Recall) On NRB mask, nad, afebrile Chest x-ray from 12/25 revealed persistent left lower lobe atelectasis with small left pleural effusion. Vague patchy right upper lobe infiltrate concerning for pneumonia unchanged. Please see full report in the chart Microbiology: Blood culture on admission grew coag negative staph species sputum culture grew Angela albicans Antimicrobials: Cefepime Diflucan Physical examination: Well-developed very pleasant fragile elderly woman who is in no distress. Head atraumatic normocephalic neck is supple chest rise symmetrical breath sounds clear diminished bases with scattered crackles heart S1-S2 abdomen soft bowel sounds present extremities without cyanosis Assessment: 1. Acute bronchitis/PNA ?aspiration 2. Coag negative staph bacteremia consistent with contaminant 3. Possible CHF Plan: Clinically unchanged, continue abx, steroids, f/u pulmonary rec-s Consultation Date/Type/Reason Admit Date/Time Dec 21, 2018 at 11:58 Initial Consult Date 12/25/18 Type of Consult id Date/Time of Note DATE: 12/28/18 TIME: 11:55 Exam/Review of Systems Exam Vitals Vital Signs Date Temp Pulse Resp B/P (MAP) Pulse Ox O2 O2 Flow FiO2 Time Delivery Rate 12/28/18 98.2 87 18 136/72 80 Non 11:10 (93) Rebreather 12/28/18 100 08:26 12/28/18 15.0 08:10 Intake and Output 12/27/18 12/27/18 12/28/18 1414:59 22:59 06:59 IntakeIntake Total 100 ml 500 ml OutputOutput Total 750 ml 350 ml BalanceBalance 100 ml -250 ml -350 ml Results Result Diagram: 12/28/18 0733 12/28/18 0733 Results 24hrs Laboratory Tests Test 12/28/18 03:00 12/28/18 07:00 12/28/18 07:33 Blood Gas Specimen Blood arterial Blood arterial Source Arterial Blood Date 12/28/2018 3:00:30 AM 12/28/2018 7:15:27 AM Drawn Arterial Blood pH 7.291 *L 7.382 (Temp corrected) Arterial Blood pCO2 93.0 *H 73.0 H (Temp correct) Arterial Blood pO2 136.3 H 77.0 L (Temp corrected) Arterial Blood HCO3 43.8 *H 42.4 *H Arterial Blood Base 12.8 H 13.8 H Excess Arterial Blood 98.2 94.7 L Oxygen Saturation Adonis Test N/A ACCEPTAB Arterial Blood Gas Right Brachial Right Radial Puncture Site Arterial 0.3 0.4 Blood Carboxyhemoglob in Arterial Blood 0.1 0.1 Methemoglobin Blood Gas A-a O2 483.7 H 563.0 H Differential Oxyhemoglobin Percent 97.8 94.2 Blood Gas Temperature 37.0 37.0 Blood Gas Respiration 16.0 24.0 Rate Blood Gas Actual 17 26 Respiration Rate Blood Gas Modality MASK - BIPAP MASK - BIPAP FiO2 100.0 100.0 Blood Gas Pressure 10 13 Support Blood Gas IPAP/EPAP 06/23 18/ Ratio Blood Gas Critical L RJ TAPIA RN Value Read Back Blood Gas Notified UP TM Whom Blood Gas Notified 12/28/2018 3:12:03 AM 12/28/2018 7:40:16 AM Time White Blood Count 8.4 Red Blood Count 4.64 Hemoglobin 13.3 Hematocrit 42.7 Mean Corpuscular 92.0 Volume Mean Corpuscular 28.7 L Hemoglobin Mean Corpuscular 31.1 L Hemoglobin Concent Red Cell Distribution 14.0 Width Platelet Count 392 Mean Platelet Volume 8.0 Immature Granulocytes 0.700 H % Neutrophils % 87.9 H Lymphocytes % 3.9 L Monocytes % 7.4 Eosinophils % 0.0 Basophils % 0.1 Nucleated Red Blood 0.0 Cells % Immature Granulocytes 0.060 H # Neutrophils # 7.3 Lymphocytes # 0.3 L Monocytes # 0.6 Eosinophils # 0.0 Basophils # 0.0 Nucleated Red Blood 0.0 Cells # Sodium Level 142 Potassium Level 4.1 Chloride Level 95 L Carbon Dioxide Level 42 *H Anion Gap 5 Blood Urea Nitrogen 33 H Creatinine 0.72 Est Glomerular Filtrat Rate mL/min Glucose Level 143 Calcium Level 8.8 Phosphorus Level 3.8 Magnesium Level 3.3 H Medications Medication Current Medications Gabapentin (Neurontin) 600 mg TID PO Last administered on 12/28/18at 08:03; Admin Dose 600 MG; Start 12/21/18 at 21:00 Losartan Potassium (Cozaar) 100 mg DAILY PO Last administered on 12/28/18at 08:01; Admin Dose 100 MG; Start 12/22/18 at 09:00 Metoprolol Succinate (Toprol Xl) 50 mg DAILY PO Last administered on 12/28/18 08:02; Admin Dose 50 MG; Start 12/22/18 at 09:00 Spironolactone (Aldactone) 25 mg DAILY PO Last administered on 12/28/18 08:03; Admin Dose 25 MG; Start 12/22/18 at 09:00 IV Flush (NS 3 ml) 3 ml PER PROTOCOL IV ; Start 12/21/18 at 16:00 Ondansetron HCl (Zofran Inj) 4 mg Q6H PRN IV NAUSEA/VOMITING Last administered on 12/27/18 20:52; Admin Dose 4 MG; Start 12/21/18 at 16:00 Acetaminophen (Tylenol Tab) 650 mg Q6H PRN PO .PAIN 1-3 OR TEMP Last administered on 12/25/18 10:35; Admin Dose 650 MG; Start 12/21/18 at 16:00 Heparin Sodium (Porcine) (Heparin (5000 Units/1ml)) 5,000 unit Q8 SC Last administered on 12/28/18 07:19; Admin Dose 5,000 UNIT; Start 12/21/18 at 22:00 Albuterol/ Ipratropium (Duoneb) 3 ml Q2H RESP THERAPY PRN HHN sob Last administered on 12/25/18 17:01; Admin Dose 3 ML; Start 12/21/18 at 16:00 Guaifenesin (Robitussin Liquid Cup) 200 mg Q4H PRN PO cough Last administered on 12/25/18 09:53; Admin Dose 200 MG; Start 12/21/18 at 16:00 Fluticasone/ Vilanterol (Breo Ellipta 100-25 Mcg Inh) 1 inh DAILY INH Last administered on 12/28/18 08:03; Admin Dose 1 INH; Start 12/22/18 at 09:00 Nystatin (Nystatin Powder) 1 applic BID TOP Last administered on 12/28/18 08:0 4; Admin Dose 1 APPLIC; Start 12/21/18 at 21:00 Sodium Chloride (Nacl) 1 gm TID PO Last administered on 12/28/18 08:03; Admin Dose 1 GM; Start 12/22/18 at 13:00 Famotidine (Pepcid) 20 mg BID PO Last administered on 12/28/18 08:03; Admin Dose 20 MG; Start 12/24/18 at 21:00 Polyethylene Glycol (Miralax) 17 gm BID PO Last administered on 12/27/18 20:42; Admin Dose 17 GM; Start 12/24/18 at 21:00 Hydralazine HCl (Apresoline) 10 mg Q6H PRN IV SBP>160 Last administered on 12/24/18 16:48; Admin Dose 10 MG; Start 12/24/18 at 17:00 Bisacodyl (Dulcolax) 10 mg DAILY PRN PO CONSTIPATION Last administered on 12/26/18 15:43; Admin Dose 10 MG; Start 12/25/18 at 12:00 Methylprednisolone Sodium Succinate (Solu-Medrol) 40 mg Q8 IV Last administered on 12/28/18 06:30; Admin Dose 40 MG; Start 12/25/18 at 14:00 Acetylcysteine (Mucomyst) 2 ml Q6H RESP THERAPY NEB Last administered on 12/28/18 08:26; Admin Dose 2 ML; Start 12/25/18 at 14:00 Albuterol/ Ipratropium (Duoneb) 3 ml Q4H RESP THERAPY HHN Last administered on 12/28/18 08:26; Admin Dose 3 ML; Start 12/25/18 at 21:00 Cefepime HCl 50 ml @ 100 mls/hr Q12 IVPB Last administered on 12/28/18 08:04; Admin Dose 100 MLS/HR; Start 12/26/18 at 16:00 Fluconazole (Diflucan) 100 mg DAILY PO Last administered on 12/28/18 08:01; Admin Dose 100 MG; Start 12/26/18 at 16:00 Tramadol HCl (Ultram) 50 mg Q6H PRN PO MODERATE PAIN LEVEL 4-6; Start 12/26/18 at 22:30 Lorazepam (Ativan) 1 mg Q4 PRN PO ANXIETY; Start 12/26/18 at 22:30 Acetaminophen (Tylenol Tab) 650 mg Q6H PRN PO MILD PAIN(1-3)OR ELEVATED TEMP; Start 12/26/18 at 22:30 Magnesium Citrate (Citroma) 300 ml ONCE PRN PO severe constipation Last administered on 12/27/18 10:44; Admin Dose 300 ML; Start 12/27/18 at 08:30; Stop 12/29/18 at 08:29 ZORAIDA OLSON NP Dec 28, 2018 11:56
[2018-12-28] MEDS: traMADol 50 MG TAB PO PRN (12:32)
[2018-12-29] VITALS (19 sets, daily range): BP systolic 126–162; BP diastolic 60–97; PULSE 66–98; RESP 16–24
[2018-12-29] MEDS: hydrALAzine 20 MG INJ IV PRN (00:12)
[2018-12-29] MEDS: NYSTATIN 30 GM POWDER BTL TOP SCH ×3 (00:16→21:00)
[2018-12-29] MEDS: ACETYLCYSTEINE 20% 4 ML VIAL NEB SCH ×3 (00:48→20:47)
[2018-12-29] MEDS: ALBUTEROL/IPRATROPIUM (NEB) 3 ML AMP HHN SCH ×4 (00:48→20:46)
[2018-12-29] MEDS: METHYLPREDNISOLONE 40 MG INJ IV SCH ×3 (05:40→22:20)
[2018-12-29] MEDS: HEPARIN 5,000 UNIT/1 ML VIAL SC SCH ×3 (05:44→22:29)
[2018-12-29] MEDS: CEFEPIME 1GM/50 ML (PMX) 50 ML IVPB SCH ×2 (08:45→22:20)
[2018-12-29] MEDS: POLYETHYLENE GLYCOL 17 GM PACKET PO SCH ×2 (10:24→22:23)
[2018-12-29] MEDS: FLUTICASONE/VILANTEROL 100-25 INH SCH (10:24)
[2018-12-29] MEDS: FLUCONAZOLE 100 MG TAB PO SCH (10:25)
[2018-12-29] MEDS: LOSARTAN 50 MG TAB PO SCH (10:25)
[2018-12-29] MEDS: SODIUM CHLORIDE 1 GM TAB PO SCH ×3 (10:25→22:23)
[2018-12-29] MEDS: FAMOTIDINE 20 MG TAB PO SCH ×2 (10:26→22:20)
[2018-12-29] MEDS: SPIRONOLACTONE 25 MG TAB PO SCH (10:26)
[2018-12-29] MEDS: GABAPENTIN 300 MG CAP PO SCH ×3 (10:26→22:20)
[2018-12-29] MEDS: METOPROLOL (XL) 50 MG TAB PO SCH (10:27)
--- NOTE | 2018-12-29 12:15 | PN ---
Date/Time of Note Date/Time of Note DATE: 12/29/18 TIME: 12:14 Assessment/Plan VTE Prophylaxis Risk score (from Nsg)>0 risk: 6 SCD applied (from Nsg): Yes Pharmacological prophylaxis: heparin Lines/Catheters IV Catheter Type (from Nrsg): Peripheral IV Urinary Cath still in place: Yes Reason Cath still needed: terminal illness/intractable pain Assessment/Plan Hospital Course SUBJECTIVE: Remains on BiPAP. Patient very adamant that she wants to talk to her Nadir, the decision maker. The patient talked to Nadir over the phone witnessed by me and I talked to Nadir. As per Nadir, the patient seems a little confused. OBJECTIVE: Physical Exam General: Adequately build 88 year-old female lying in bed in mild to moderate respiratory distress. HEENT: Normocephalic, atraumatic. Eyes: Anicteric sclerae, conjunctivae clear. ENT: Nasal septum midline, oral mucosa moist. Neck supple, no JVD noticed. Respiratory: Bilaterally diminished breath sounds. Use of accessory muscles of respiration. Bilateral rhonchi. On 100% nonrebreather mask. Cardiovascular: S1, S2 heard. Regular rate and rhythm. Abdomen: Soft, nontender, and nondistended. Bowel sounds positive in all 4 quadrants. Genitourinary: Deferred. Extremities: No cyanosis, no clubbing, no edema. Peripheral pulses palpable. Neurologic: The patient is awake and alert. Skin: Normal skin turgor. No skin rashes. Labs & Vitals per chart ASSESSMENT & PLAN 88-year-old female with past medical history of COPD, hypertension, and neuropathy who presented to the emergency room with chief complaint of dyspnea with chest x-ray showing hypoventilatory changes with bibasilar opacities favoring atelectasis, who was admitted to inpatient setting for further treatment and evaluation. 1. Acute respiratory failure. Hypoxic and hypercapnic. Etiology could be secondary to underlying COPD exacerbation. Continue patient on inhaled bronchodilators (MARTIN+ LABA) and inhaled anticholinergics. Continue the patient on tapering dose of steroids. Being followed by pulmonology. 2. Suspect pneumonia. Continue ABX as per ID. 3. Neuropathy. Continue gabapentin. 4. Osteoporosis. Continue bisphosphonates. 5. Staph aureus bacteremia. Likely from sample contamination. 6. Fluids, electrolytes, and nutrition. Low-cholesterol diet. 7. DVT prophylaxis. Subcutaneous heparin. 8. Plan. Continue inhaled bronchodilators. Continue antimicrobials as per ID. Wean off oxygen as tolerated. The patient was seen in collaboration with Dr. Rosario. Result Diagram: 12/29/18 0623 12/29/18 0623 Results 24hrs Laboratory Tests Test 12/29/18 06:23 12/29/18 08:55 White Blood Count 10.4 # Red Blood Count 4.74 Hemoglobin 13.6 Hematocrit 45.1 Mean Corpuscular Volume 95.1 Mean Corpuscular Hemoglobin 28.7 L Mean Corpuscular Hemoglobin Concent 30.2 L Red Cell Distribution Width 13.8 Platelet Count 386 Mean Platelet Volume 8.1 Immature Granulocytes % 1.600 H Neutrophils % 87.1 H Lymphocytes % 4.1 L Monocytes % 7.1 Eosinophils % 0.0 Basophils % 0.1 Nucleated Red Blood Cells % 0.0 Immature Granulocytes # 0.170 H Neutrophils # 9.1 H Lymphocytes # 0.4 L Monocytes # 0.7 Eosinophils # 0.0 Basophils # 0.0 Nucleated Red Blood Cells # 0.0 Sodium Level 140 Potassium Level 4.8 Chloride Level 95 L Carbon Dioxide Level 42 *H Anion Gap 3 L Blood Urea Nitrogen 35 H Creatinine 0.62 Est Glomerular Filtrat Rate mL/min Glucose Level 146 Calcium Level 8.8 Phosphorus Level 3.5 Magnesium Level 3.3 H Blood Gas Specimen Source Blood arterial Arterial Blood Date Drawn 12/29/2018 9:50:12 AM Arterial Blood pH (Temp corrected) 7.430 Arterial Blood pCO2 (Temp correct) 61.8 H Arterial Blood pO2 (Temp corrected) 62.8 L Arterial Blood HCO3 40.1 *H Arterial Blood Base Excess 12.9 H Arterial Blood Oxygen Saturation 92.0 L Adonis Test N/A Arterial Blood Gas Puncture Site LB Arterial Blood Carboxyhemoglobin 0.2 Arterial Blood Methemoglobin 0 Blood Gas A-a O2 Differential 588.4 H Oxyhemoglobin Percent 91.8 L Blood Gas Temperature 37.0 Blood Gas Respiration Rate 24.0 Blood Gas Actual Respiration Rate 27 Blood Gas Modality MASK - BIPAP FiO2 100.0 Blood Gas IPAP/EPAP Ratio 18/5 Blood Gas Critical Value Read Back juan c mccloud Blood Gas Notified Whom ab Blood Gas Notified Time 12/29/2018 9:57:42 AM Exam/Review of Systems Exam Vitals Vital Signs Date Temp Pulse Resp B/P (MAP) Pulse Ox O2 O2 Flow FiO2 Time Delivery Rate 12/29/18 80 91 100 11:03 12/29/18 97.8 24 126/60 11:00 (82) 12/28/18 15.0 19:51 12/28/18 Non 19:30 Rebreather Mask Intake and Output 12/28/18 12/28/18 12/29/18 1515:00 23:00 07:00 IntakeIntake Total 500 ml 490 ml 100 ml OutputOutput Total 400 ml 200 ml BalanceBalance 500 ml 90 ml -100 ml Results Results 24hrs Laboratory Tests Test 12/29/18 06:23 12/29/18 08:55 White Blood Count 10.4 # Red Blood Count 4.74 Hemoglobin 13.6 Hematocrit 45.1 Mean Corpuscular Volume 95.1 Mean Corpuscular Hemoglobin 28.7 L Mean Corpuscular Hemoglobin Concent 30.2 L Red Cell Distribution Width 13.8 Platelet Count 386 Mean Platelet Volume 8.1 Immature Granulocytes % 1.600 H Neutrophils % 87.1 H Lymphocytes % 4.1 L Monocytes % 7.1 Eosinophils % 0.0 Basophils % 0.1 Nucleated Red Blood Cells % 0.0 Immature Granulocytes # 0.170 H Neutrophils # 9.1 H Lymphocytes # 0.4 L Monocytes # 0.7 Eosinophils # 0.0 Basophils # 0.0 Nucleated Red Blood Cells # 0.0 Sodium Level 140 Potassium Level 4.8 Chloride Level 95 L Carbon Dioxide Level 42 *H Anion Gap 3 L Blood Urea Nitrogen 35 H Creatinine 0.62 Est Glomerular Filtrat Rate mL/min Glucose Level 146 Calcium Level 8.8 Phosphorus Level 3.5 Magnesium Level 3.3 H Blood Gas Specimen Source Blood arterial Arterial Blood Date Drawn 12/29/2018 9:50:12 AM Arterial Blood pH (Temp corrected) 7.430 Arterial Blood pCO2 (Temp correct) 61.8 H Arterial Blood pO2 (Temp corrected) 62.8 L Arterial Blood HCO3 40.1 *H Arterial Blood Base Excess 12.9 H Arterial Blood Oxygen Saturation 92.0 L Adonis Test N/A Arterial Blood Gas Puncture Site LB Arterial Blood Carboxyhemoglobin 0.2 Arterial Blood Methemoglobin 0 Blood Gas A-a O2 Differential 588.4 H Oxyhemoglobin Percent 91.8 L Blood Gas Temperature 37.0 Blood Gas Respiration Rate 24.0 Blood Gas Actual Respiration Rate 27 Blood Gas Modality MASK - BIPAP FiO2 100.0 Blood Gas IPAP/EPAP Ratio 18/5 Blood Gas Critical Value Read Back juan c mccloud Blood Gas Notified Whom ab Blood Gas Notified Time 12/29/2018 9:57:42 AM Medications Medication Current Medications Gabapentin (Neurontin) 600 mg TID PO Last administered on 12/29/18 10:26; Ad min Dose 600 MG; Start 12/21/18 at 21:00 Losartan Potassium (Cozaar) 100 mg DAILY PO Last administered on 12/29/18 10:25; Admin Dose 100 MG; Start 12/22/18 at 09:00 Metoprolol Succinate (Toprol Xl) 50 mg DAILY PO Last administered on 12/29/18 10:27; Admin Dose 50 MG; Start 12/22/18 at 09:00 Spironolactone (Aldactone) 25 mg DAILY PO Last administered on 12/29/18 10:26; Admin Dose 25 MG; Start 12/22/18 at 09:00 IV Flush (NS 3 ml) 3 ml PER PROTOCOL IV ; Start 12/21/18 at 16:00 Ondansetron HCl (Zofran Inj) 4 mg Q6H PRN IV NAUSEA/VOMITING Last administered on 12/27/18 20:52; Admin Dose 4 MG; Start 12/21/18 at 16:00 Acetaminophen (Tylenol Tab) 650 mg Q6H PRN PO .PAIN 1-3 OR TEMP Last administer ed on 12/25/18 10:35; Admin Dose 650 MG; Start 12/21/18 at 16:00 Heparin Sodium (Porcine) (Heparin (5000 Units/1ml)) 5,000 unit Q8 SC Last administered on 12/29/18 05:44; Admin Dose 5,000 UNIT; Start 12/21/18 at 22:00 Albuterol/ Ipratropium (Duoneb) 3 ml Q2H RESP THERAPY PRN HHN sob Last administered on 12/25/18 17:01; Admin Dose 3 ML; Start 12/21/18 at 16:00 Guaifenesin (Robitussin Liquid Cup) 200 mg Q4H PRN PO cough Last administered on 12/25/18 09:53; Admin Dose 200 MG; Start 12/21/18 at 16:00 Fluticasone/ Vilanterol (Breo Ellipta 100-25 Mcg Inh) 1 inh DAILY INH Last administered on 12/29/18 10:24; Admin Dose 1 INH; Start 12/22/18 at 09:00 Nystatin (Nystatin Powder) 1 applic BID TOP Last administered on 12/29/18 10:25; Admin Dose 1 APPLIC; Start 12/21/18 at 21:00 Sodium Chloride (Nacl) 1 gm TID PO Last administered on 12/29/18 10:25; Admin Dose 1 GM; Start 12/22/18 at 13:00 Famotidine (Pepcid) 20 mg BID PO Last administered on 12/29/18 10:26; Admin Dose 20 MG; Start 12/24/18 at 21:00 Polyethylene Glycol (Miralax) 17 gm BID PO Last administered on 12/29/18 10:24; Admin Dose 17 GM; Start 12/24/18 at 21:00 Hydralazine HCl (Apresoline) 10 mg Q6H PRN IV SBP>160 Last administered on 12/29/18 00:12; Admin Dose 10 MG; Start 12/24/18 at 17:00 Bisacodyl (Dulcolax) 10 mg DAILY PRN PO CONSTIPATION Last administered on 12/26/18 15:43; Admin Dose 10 MG; Start 12/25/18 at 12:00 Methylprednisolone Sodium Succinate (Solu-Medrol) 40 mg Q8 IV Last administered on 12/29/18 05:40; Admin Dose 40 MG; Start 12/25/18 at 14:00 Acetylcysteine (Mucomyst) 2 ml Q6H RESP THERAPY NEB Last administered on 12/29/18 08:06; Admin Dose 2 ML; Start 12/25/18 at 14:00 Albuterol/ Ipratropium (Duoneb) 3 ml Q4H RESP THERAPY HHN Last administered on 12/29/18 08:06; Admin Dose 3 ML; Start 12/25/18 at 21:00 Cefepime HCl 50 ml @ 100 mls/hr Q12 IVPB Last administered on 12/29/18 08:45; Admin Dose 100 MLS/HR; Start 12/26/18 at 16:00 Fluconazole (Diflucan) 100 mg DAILY PO Last administered on 12/29/18 10:25; Admin Dose 100 MG; Start 12/26/18 at 16:00 Tramadol HCl (Ultram) 50 mg Q6H PRN PO MODERATE PAIN LEVEL 4-6 Last administered on 12/28/18at 12:32; Admin Dose 50 MG; Start 12/26/18 at 22:30 Lorazepam (Ativan) 1 mg Q4 PRN PO ANXIETY; Start 12/26/18 at 22:30 Acetaminophen (Tylenol Tab) 650 mg Q6H PRN PO MILD PAIN(1-3)OR ELEVATED TEMP; Start 12/26/18 at 22:30 FELIPE AQUINO NP Dec 29, 2018 12:15
--- NOTE | 2018-12-29 16:28 | PN ---
DATE: 12/29/2018 SUBJECTIVE: Chart reviewed. No significant events noted. The patient remains on nocturnal BiPAP. Currently, saturating 100%. PHYSICAL EXAMINATION: VITAL SIGNS: Blood pressure 126/60, pulse 66, respirations 24, temperature 97.8. HEENT: Pupils are equal and react to light. NECK: Supple, no JVD noted, no cervical adenopathy noted. LUNGS: Diminished breath sounds bilaterally. CARDIOVASCULAR: S1, S2 normal. ABDOMEN: Soft, nontender, no organomegaly or masses noted. EXTREMITIES: No clubbing or cyanosis noted. NEUROLOGICAL: Awake. LABORATORY DATA: WBC 10.4, hemoglobin 13.6, hematocrit 45.1, platelets 386. Sodium 140, potassium 4 .8, chloride 95, CO2 42, BUN 35, creatinine 0.62, glucose 146. ABG shows pH of 7.43, pCO2 of 62, pO2 of 63. IMPRESSION: 1. Acute hypoxemic and hypercapnic respiratory failure requiring BiPAP support. 2. Left lower lobe pneumonia. 3. History of hypertension. 4. History of asthma. RECOMMENDATIONS: 1. Continue BiPAP as necessary. 2. Bronchodilators. 3. Oxygen. 4. Continue antibiotics. Dictated By: PIERRE KYLE MD, MA/NTS Conf#: [id number] DID#: [id number] CC: AMIRA ROCKWELL MD;*End*
--- NOTE | 2018-12-29 16:54 | CONS ---
Consultation Date/Type/Reason Admit Date/Time Dec 21, 2018 at 11:58 Initial Consult Date 12/25/18 Type of Consult SUBJECTIVE: Pt is awake,afebrile. No acute events over night. VS: stable T: 97.7 LABS: Reviewed. WBC- 10.4 Chest x-ray from 12/25 : revealed persistent left lower lobe atelectasis with small left pleural effusion. Vague patchy right upper lobe infiltrate concerning for pneumonia unchanged. Please see full report in the chart Microbiology: Blood culture on admission grew coag negative staph species sputum culture grew Angela albicans Antimicrobials: Cefepime Diflucan Physical examination: gEN: Well-developed very pleasant fragile elderly woman, who is in no distress. HENT: Head atraumatic normocephalic; neck is supple PULM: chest rise symmetrical breath sounds clear diminished bases with scattered crackles Heart : S1-S2 Abdomen: soft, bowel sounds present Extremities without cyanosis Assessment: 1. Acute bronchitis/PNA ?aspiration 2. Coag negative staph bacteremia consistent with contaminant 3. Possible CHF Plan: Pt is unchanged. Continue current abx, steroids. Pulm following. Repeat CXR. Date/Time of Note DATE: 12/29/18 TIME: 16:49 Exam/Review of Systems Exam Vitals Vital Signs Date Temp Pulse Resp B/P (MAP) Pulse Ox O2 O2 Flow FiO2 Time Delivery Rate 12/29/18 95 88 100 15:30 12/29/18 97.7 140/71 BIPAP 15:28 (94) 12/29/18 24 11:00 12/28/18 15.0 19:51 Intake and Output 12/28/18 12/28/18 12/29/18 1515:00 23:00 07:00 IntakeIntake Total 500 ml 490 ml 100 ml OutputOutput Total 400 ml 200 ml BalanceBalance 500 ml 90 ml -100 ml Results Result Diagram: 12/29/18 0623 12/29/18 0623 Results 24hrs Laboratory Tests Test 12/29/18 06:23 12/29/18 08:55 White Blood Count 10.4 # Red Blood Count 4.74 Hemoglobin 13.6 Hematocrit 45.1 Mean Corpuscular Volume 95.1 Mean Corpuscular Hemoglobin 28.7 L Mean Corpuscular Hemoglobin Concent 30.2 L Red Cell Distribution Width 13.8 Platelet Count 386 Mean Platelet Volume 8.1 Immature Granulocytes % 1.600 H Neutrophils % 87.1 H Lymphocytes % 4.1 L Monocytes % 7.1 Eosinophils % 0.0 Basophils % 0.1 Nucleated Red Blood Cells % 0.0 Immature Granulocytes # 0.170 H Neutrophils # 9.1 H Lymphocytes # 0.4 L Monocytes # 0.7 Eosinophils # 0.0 Basophils # 0.0 Nucleated Red Blood Cells # 0.0 Sodium Level 140 Potassium Level 4.8 Chloride Level 95 L Carbon Dioxide Level 42 *H Anion Gap 3 L Blood Urea Nitrogen 35 H Creatinine 0.62 Est Glomerular Filtrat Rate mL/min Glucose Level 146 Calcium Level 8.8 Phosphorus Level 3.5 Magnesium Level 3.3 H Blood Gas Specimen Source Blood arterial Arterial Blood Date Drawn 12/29/2018 9:50:12 AM Arterial Blood pH (Temp corrected) 7.430 Arterial Blood pCO2 (Temp correct) 61.8 H Arterial Blood pO2 (Temp corrected) 62.8 L Arterial Blood HCO3 40.1 *H Arterial Blood Base Excess 12.9 H Arterial Blood Oxygen Saturation 92.0 L Adonis Test N/A Arterial Blood Gas Puncture Site LB Arterial Blood Carboxyhemoglobin 0.2 Arterial Blood Methemoglobin 0 Blood Gas A-a O2 Differential 588.4 H Oxyhemoglobin Percent 91.8 L Blood Gas Temperature 37.0 Blood Gas Respiration Rate 24.0 Blood Gas Actual Respiration Rate 27 Blood Gas Modality MASK - BIPAP FiO2 100.0 Blood Gas IPAP/EPAP Ratio 18/5 Blood Gas Critical Value Read Back juan c mccloud Blood Gas Notified Whom ab Blood Gas Notified Time 12/29/2018 9:57:42 AM Medications Medication Current Medications Gabapentin (Neurontin) 600 mg TID PO Last administered on 12/29/18 14:36; Admin Dose 600 MG; Start 12/21/18 at 21:00 Losartan Potassium (Cozaar) 100 mg DAILY PO Last administered on 12/29/18 10:25; Admin Dose 100 MG; Start 12/22/18 at 09:00 Metoprolol Succinate (Toprol Xl) 50 mg DAILY PO Last administered on 12/29/18 10:27; Admin Dose 50 MG; Start 12/22/18 at 09:00 Spironolactone (Aldactone) 25 mg DAILY PO Last administered on 12/29/18 10:26; Admin Dose 25 MG; Start 12/22/18 at 09:00 IV Flush (NS 3 ml) 3 ml PER PROTOCOL IV ; Start 12/21/18 at 16:00 Ondansetron HCl (Zofran Inj) 4 mg Q6H PRN IV NAUSEA/VOMITING Last administered on 12/27/18 20:52; Admin Dose 4 MG; Start 12/21/18 at 16:00 Acetaminophen (Tylenol Tab) 650 mg Q6H PRN PO .PAIN 1-3 OR TEMP Last administered on 12/25/18 10:35; Admin Dose 650 MG; Start 12/21/18 at 16:00 Heparin Sodium (Porcine) (Heparin (5000 Units/1ml)) 5,000 unit Q8 SC Last administered on 12/29/18 14:51; Admin Dose 5,000 UNIT; Start 12/21/18 at 22:00 Albuterol/ Ipratropium (Duoneb) 3 ml Q2H RESP THERAPY PRN HHN sob Last administered on 12/25/18 17:01; Admin Dose 3 ML; Start 12/21/18 at 16:00 Guaifenesin (Robitussin Liquid Cup) 200 mg Q4H PRN PO cough Last administered on 12/25/18 09:53; Admin Dose 200 MG; Start 12/21/18 at 16:00 Fluticasone/ Vilanterol (Breo Ellipta 100-25 Mcg Inh) 1 inh DAILY INH Last administered on 12/29/18 10:24; Admin Dose 1 INH; Start 12/22/18 at 09:00 Nystatin (Nystatin Powder) 1 applic BID TOP Last administered on 12/29/18 10:25; Admin Dose 1 APPLIC; Start 12/21/18 at 21:00 Sodium Chloride (Nacl) 1 gm TID PO Last administered on 12/29/18 14:36; Admin Dose 1 GM; Start 12/22/18 at 13:00 Famotidine (Pepcid) 20 mg BID PO Last administered on 12/29/18 10:26; Admin Dose 20 MG; Start 12/24/18 at 21:00 Polyethylene Glycol (Miralax) 17 gm BID PO Last administered on 12/29/18 10:24; Admin Dose 17 GM; Start 12/24/18 at 21:00 Hydralazine HCl (Apresoline) 10 mg Q6H PRN IV SBP>160 Last administered on 12/29/18 00:12; Admin Dose 10 MG; Start 12/24/18 at 17:00 Bisacodyl (Dulcolax) 10 mg DAILY PRN PO CONSTIPATION Last administered on 12/26/18 15:43; Admin Dose 10 MG; Start 12/25/18 at 12:00 Methylprednisolone Sodium Succinate (Solu-Medrol) 40 mg Q8 IV Last administered on 12/29/18 14:36; Admin Dose 40 MG; Start 12/25/18 at 14:00 Acetylcysteine (Mucomyst) 2 ml Q6H RESP THERAPY NEB Last administered on 12/29/18 08:06; Admin Dose 2 ML; Start 12/25/18 at 14:00 Albuterol/ Ipratropium (Duoneb) 3 ml Q4H RESP THERAPY HHN Last administered on 12/29/18 08:06; Admin Dose 3 ML; Start 12/25/18 at 21:00 Cefepime HCl 50 ml @ 100 mls/hr Q12 IVPB Last administered on 12/29/18 08:45; Admin Dose 100 MLS/HR; Start 12/26/18 at 16:00 Fluconazole (Diflucan) 100 mg DAILY PO Last administered on 12/29/18 10:25; Admin Dose 100 MG; Start 12/26/18 at 16:00 Tramadol HCl (Ultram) 50 mg Q6H PRN PO MODERATE PAIN LEVEL 4-6 Last administered on 12/28/18 12:32; Admin Dose 50 MG; Start 12/26/18 at 22:30 Lorazepam (Ativan) 1 mg Q4 PRN PO ANXIETY; Start 12/26/18 at 22:30 Acetaminophen (Tylenol Tab) 650 mg Q6H PRN PO MILD PAIN(1-3)OR ELEVATED TEMP; Start 12/26/18 at 22:30 JORGE L BEAN Dec 29, 2018 16:54
[2018-12-29] MEDS: traMADol 50 MG TAB PO PRN (19:57)
[2018-12-30] VITALS (21 sets, daily range): BP systolic 79–177; BP diastolic 78–97; PULSE 20–110; RESP 18–20
[2018-12-30] MEDS: ALBUTEROL/IPRATROPIUM (NEB) 3 ML AMP HHN SCH ×6 (01:14→20:07)
[2018-12-30] MEDS: ACETYLCYSTEINE 20% 4 ML VIAL NEB SCH ×4 (01:14→20:07)
[2018-12-30] MEDS: hydrALAzine 20 MG INJ IV PRN (01:36)
[2018-12-30] MEDS: KETOROLAC 15 MG INJ IV PRN ×2 (05:26→08:47)
[2018-12-30] MEDS: METHYLPREDNISOLONE 40 MG INJ IV SCH ×3 (05:28→22:07)
[2018-12-30] MEDS: HEPARIN 5,000 UNIT/1 ML VIAL SC SCH ×3 (05:35→22:17)
[2018-12-30] MEDS: CEFEPIME 1GM/50 ML (PMX) 50 ML IVPB SCH ×2 (08:46→22:07)
[2018-12-30] MEDS: SODIUM CHLORIDE 1 GM TAB PO SCH ×3 (08:47→21:00)
[2018-12-30] MEDS: FAMOTIDINE 20 MG TAB PO SCH ×2 (08:48→21:00)
[2018-12-30] MEDS: FLUCONAZOLE 100 MG TAB PO SCH (08:48)
[2018-12-30] MEDS: GABAPENTIN 300 MG CAP PO SCH ×3 (08:48→21:00)
[2018-12-30] MEDS: LOSARTAN 50 MG TAB PO SCH (08:48)
[2018-12-30] MEDS: POLYETHYLENE GLYCOL 17 GM PACKET PO SCH ×2 (08:49→21:00)
[2018-12-30] MEDS: METOPROLOL (XL) 50 MG TAB PO SCH (08:49)
[2018-12-30] MEDS: FLUTICASONE/VILANTEROL 100-25 INH SCH (08:49)
[2018-12-30] MEDS: SPIRONOLACTONE 25 MG TAB PO SCH (08:49)
[2018-12-30] MEDS: NYSTATIN 30 GM POWDER BTL TOP SCH ×2 (09:12→21:00)
[2018-12-30] MEDS ORDERED: HALOPERIDOL 5 MG INJ IV ONE (11:00)
--- NOTE | 2018-12-30 11:55 | PN ---
Date/Time of Note Date/Time of Note DATE: 12/30/18 TIME: 11:54 Assessment/Plan VTE Prophylaxis Risk score (from Nsg)>0 risk: 6 SCD applied (from Nsg): Yes Pharmacological prophylaxis: heparin Lines/Catheters IV Catheter Type (from Nrsg): Peripheral IV Urinary Cath still in place: Yes Reason Cath still needed: terminal illness/intractable pain, other (indicate) Assessment/Plan Hospital Course SUBJECTIVE: Remains on BiPAP. Patient was very restless and agitated earlier today. Currently somnolent. OBJECTIVE: Physical Exam General: Adequately build 88 year-old female lying in bed in mild to moderate respiratory distress. HEENT: Normocephalic, atraumatic. Eyes: Anicteric sclerae, conjunctivae clear. ENT: Nasal septum midline, oral mucosa moist. Neck supple, no JVD noticed. Respiratory: Bilaterally diminished breath sounds. Use of accessory muscles of respiration. Bilateral rhonchi. On BiPAP. Cardiovascular: S1, S2 heard. Regular rate and rhythm. Abdomen: Soft, nontender, and nondistended. Bowel sounds positive in all 4 quadrants. Genitourinary: Deferred. Extremities: No cyanosis, no clubbing, no edema. Peripheral pulses palpable. Neurologic: The patient is somnolent Skin: Normal skin turgor. No skin rashes. Labs & Vitals per chart ASSESSMENT & PLAN 88-year-old female with past medical history of COPD, hypertension, and neuropathy who presented to the emergency room with chief complaint of dyspnea with chest x-ray showing hypoventilatory changes with bibasilar opacities favoring atelectasis, who was admitted to inpatient setting for further treatment and evaluation. 1. Acute respiratory failure. Hypoxic and hypercapnic. Etiology could be secondary to underlying COPD exacerbation. Continue patient on inhaled bronchodilators (MARTIN+ LABA) and inhaled anticholinergics. Continue the patient on tapering dose of steroids. Being followed by pulmonology. 2. Suspect pneumonia. Continue ABX as per ID. 3. Neuropathy. Continue gabapentin. 4. Osteoporosis. Continue bisphosphonates. 5. Staph aureus bacteremia. Likely from sample contamination. 6. Fluids, electrolytes, and nutrition. Low-cholesterol diet. 7. DVT prophylaxis. Subcutaneous heparin. 8. Plan. Continue inhaled bronchodilators. Continue antimicrobials as per ID. Wean off oxygen as tolerated. Poor prognosis. Had a conversation with the patient's UCHE Stokesin. As per the conversation, she wanted the patient to remain a DNR as of now. She does not want to consider comfort measures at this time. The patient was seen in collaboration with Dr. Rosario. Result Diagram: 12/30/1830 12/30/18 0631 Results 24hrs Laboratory Tests Test 12/30/18 06:30 12/30/18 06:31 White Blood Count 15.8 #H Red Blood Count 4.84 Hemoglobin 14.0 Hematocrit 44.7 Mean Corpuscular Volume 92.4 Mean Corpuscular Hemoglobin 28.9 L Mean Corpuscular Hemoglobin Concent 31.3 L Red Cell Distribution Width 13.6 Platelet Count 426 H Mean Platelet Volume 8.1 Immature Granulocytes % 1.800 H Neutrophils % 87.0 H Lymphocytes % 2.9 L Monocytes % 8.0 Eosinophils % 0.0 Basophils % 0.3 Nucleated Red Blood Cells % 0.0 Immature Granulocytes # 0.280 H Neutrophils # 13.7 H Lymphocytes # 0.5 L Monocytes # 1.3 H Eosinophils # 0.0 Basophils # 0.1 Nucleated Red Blood Cells # 0.0 Phosphorus Level 2.2 #L Magnesium Level 2.8 H Sodium Level 142 Potassium Level 4.5 Chloride Level 99 Carbon Dioxide Level 37 H Anion Gap 6 Blood Urea Nitrogen 33 H Creatinine 0.56 Est Glomerular Filtrat Rate mL/min Glucose Level 157 Calcium Level 9.3 Exam/Review of Systems Exam Vitals Vital Signs Date Temp Pulse Resp B/P (MAP) Pulse Ox O2 O2 Flow FiO2 Time Delivery Rate 12/30/18 98.8 87 20 158/80 94 11:28 (106) 12/30/18 100 04:59 12/30/18 BIPAP 04:30 12/28/18 15.0 19:51 Intake and Output 12/29/18 12/29/18 12/30/18 1515:00 23:00 07:00 IntakeIntake Total 450 ml OutputOutput Total 450 ml BalanceBalance 450 ml -450 ml Results Results 24hrs Laboratory Tests Test 12/30/18 06:30 12/30/18 06:31 White Blood Count 15.8 #H Red Blood Count 4.84 Hemoglobin 14.0 Hematocrit 44.7 Mean Corpuscular Volume 92.4 Mean Corpuscular Hemoglobin 28.9 L Mean Corpuscular Hemoglobin Concent 31.3 L Red Cell Distribution Width 13.6 Platelet Count 426 H Mean Platelet Volume 8.1 Immature Granulocytes % 1.800 H Neutrophils % 87.0 H Lymphocytes % 2.9 L Monocytes % 8.0 Eosinophils % 0.0 Basophils % 0.3 Nucleated Red Blood Cells % 0.0 Immature Granulocytes # 0.280 H Neutrophils # 13.7 H Lymphocytes # 0.5 L Monocytes # 1.3 H Eosinophils # 0.0 Basophils # 0.1 Nucleated Red Blood Cells # 0.0 Phosphorus Level 2.2 #L Magnesium Level 2.8 H Sodium Level 142 Potassium Level 4.5 Chloride Level 99 Carbon Dioxide Level 37 H Anion Gap 6 Blood Urea Nitrogen 33 H Creatinine 0.56 Est Glomerular Filtrat Rate mL/min Glucose Level 157 Calcium Level 9.3 Medications Medication Current Medications Gabapentin (Neurontin) 600 mg TID PO Last administered on 12/30/18 08:48; Admin Dose 600 MG; Start 12/21/18 at 21:00 Losartan Potassium (Cozaar) 100 mg DAILY PO Last administered on 12/30/18 08:48; Admin Dose 100 MG; Start 12/22/18 at 09:00 Metoprolol Succinate (Toprol Xl) 50 mg DAILY PO Last administered on 12/30/18 08:49; Admin Dose 50 MG; Start 12/22/18 at 09:00 Spironolactone (Aldactone) 25 mg DAILY PO Last administered on 12/30/18 08:49; Admin Dose 25 MG; Start 12/22/18 at 09:00 IV Flush (NS 3 ml) 3 ml PER PROTOCOL IV ; Start 12/21/18 at 16:00 Ondansetron HCl (Zofran Inj) 4 mg Q6H PRN IV NAUSEA/VOMITING Last administered on 12/27/18 20:52; Admin Dose 4 MG; Start 12/21/18 at 16:00 Acetaminophen (Tylenol Tab) 650 mg Q6H PRN PO .PAIN 1-3 OR TEMP Last administered on 12/25/18 10:35; Admin Dose 650 MG; Start 12/21/18 at 16:00 Heparin Sodium (Porcine) (Heparin (5000 Units/1ml)) 5,000 unit Q8 SC Last administered on 12/30/18 05:35; Admin Dose 5,000 UNIT; Start 12/21/18 at 22:00 Albuterol/ Ipratropium (Duoneb) 3 ml Q2H RESP THERAPY PRN HHN sob Last administered on 12/25/18 17:01; Admin Dose 3 ML; Start 12/21/18 at 16:00 Guaifenesin (Robitussin Liquid Cup) 200 mg Q4H PRN PO cough Last administered on 12/25/18 09:53; Admin Dose 200 MG; Start 12/21/18 at 16:00 Fluticasone/ Vilanterol (Breo Ellipta 100-25 Mcg Inh) 1 inh DAILY INH Last administered on 12/30/18 08:49; Admin Dose 1 INH; Start 12/22/18 at 09:00 Nystatin (Nystatin Powder) 1 applic BID TOP Last administered on 12/30/18 09:12; Admin Dose 1 APPLIC; Start 12/21/18 at 21:00 Sodium Chloride (Nacl) 1 gm TID PO Last administered on 12/30/18 08:47; Admin Dose 1 GM; Start 12/22/18 at 13:00 Famotidine (Pepcid) 20 mg BID PO Last administered on 12/30/18 08:48; Admin Dose 20 MG; Start 12/24/18 at 21:00 Polyethylene Glycol (Miralax) 17 gm BID PO Last administered on 12/30/18 08:49; Admin Dose 17 GM; Start 12/24/18 at 21:00 Hydralazine HCl (Apresoline) 10 mg Q6H PRN IV SBP>160 Last administered on 12/30/18 01:36; Admin Dose 10 MG; Start 12/24/18 at 17:00 Bisacodyl (Dulcolax) 10 mg DAILY PRN PO CONSTIPATION Last administered on 12/26/18 15:43; Admin Dose 10 MG; Start 12/25/18 at 12:00 Methylprednisolone Sodium Succinate (Solu-Medrol) 40 mg Q8 IV Last administered on 12/30/18 05:28; Admin Dose 40 MG; Start 12/25/18 at 14:00 Acetylcysteine (Mucomyst) 2 ml Q6H RESP THERAPY NEB Last administered on 12/30/18 07:57; Admin Dose 2 ML; Start 12/25/18 at 14:00 Albuterol/ Ipratropium (Duoneb) 3 ml Q4H RESP THERAPY HHN Last administered on 12/30/18 07:57; Admin Dose 3 ML; Start 12/25/18 at 21:00 Cefepime HCl 50 ml @ 100 mls/hr Q12 IVPB Last administered on 12/30/18 08:46; Admin Dose 100 MLS/HR; Start 12/26/18 at 16:00 Fluconazole (Diflucan) 100 mg DAILY PO Last administered on 12/30/18 08:48; Admin Dose 100 MG; Start 12/26/18 at 16:00 Tramadol HCl (Ultram) 50 mg Q6H PRN PO MODERATE PAIN LEVEL 4-6 Last administered on 12/29/18 19:57; Admin Dose 50 MG; Start 12/26/18 at 22:30 Lorazepam (Ativan) 1 mg Q4 PRN PO ANXIETY; Start 12/26/18 at 22:30 Acetaminophen (Tylenol Tab) 650 mg Q6H PRN PO MILD PAIN(1-3)OR ELEVATED TEMP; Start 12/26/18 at 22:30 Ketorolac Tromethamine (Toradol) 15 mg Q6H PRN IV PAIN Last administered on 12/30/18 08:47; Admin Dose 15 MG; Start 12/30/18 at 05:30; Stop 01/02/19 at 05:29 FELIPE AQUINO NP Dec 30, 2018 11:55
--- NOTE | 2018-12-30 12:36 | CONS ---
Consultation Date/Type/Reason Admit Date/Time Dec 21, 2018 at 11:58 Initial Consult Date 12/25/18 Type of Consult SUBJECTIVE: Pt is awake,afebrile. No acute events over night. WBC is noted to be elevated today. No fevers over night. VS: stable T: 98.8 LABS: Reviewed. WBC- 15.8 Chest x-ray from 12/25 : revealed persistent left lower lobe atelectasis with small left pleural effusion. Vague patchy right upper lobe infiltrate concerning for pneumonia unchanged. Please see full report in the chart Microbiology: Blood culture on admission grew coag negative staph species sputum culture grew Angela albicans Antimicrobials: Cefepime and Diflucan Physical examination: gEN: Well-developed very pleasant fragile elderly woman, who is in no distress. HENT: Head atraumatic normocephalic; neck is supple PULM: chest rise symmetrical breath sounds clear diminished bases with scattered crackles Heart : S1-S2 Abdomen: soft, bowel sounds present Extremities without cyanosis Assessment: 1. Acute bronchitis/PNA ?aspiration 2. Coag negative staph bacteremia consistent with contaminant 3. Possible CHF Plan: Pt is unchanged. Continue current abx, and steroids. WBC elevation noted. No fevers. Will repeat CXR. Pulm following. Date/Time of Note DATE: 12/30/18 TIME: 12:34 Exam/Review of Systems Exam Vitals Vital Signs Date Temp Pulse Resp B/P (MAP) Pulse Ox O2 O2 Flow FiO2 Time Delivery Rate 12/30/18 98.8 87 20 158/80 94 11:28 (106) 12/30/18 100 04:59 12/30/18 BIPAP 04:30 12/28/18 15.0 19:51 Intake and Output 12/29/18 12/29/18 12/30/18 1515:00 23:00 07:00 IntakeIntake Total 450 ml OutputOutput Total 450 ml BalanceBalance 450 ml -450 ml Results Result Diagram: 12/30/18 0630 12/30/18 0631 Results 24hrs Laboratory Tests Test 12/30/18 06:30 12/30/18 06:31 White Blood Count 15.8 #H Red Blood Count 4.84 Hemoglobin 14.0 Hematocrit 44.7 Mean Corpuscular Volume 92.4 Mean Corpuscular Hemoglobin 28.9 L Mean Corpuscular Hemoglobin Concent 31.3 L Red Cell Distribution Width 13.6 Platelet Count 426 H Mean Platelet Volume 8.1 Immature Granulocytes % 1.800 H Neutrophils % 87.0 H Lymphocytes % 2.9 L Monocytes % 8.0 Eosinophils % 0.0 Basophils % 0.3 Nucleated Red Blood Cells % 0.0 Immature Granulocytes # 0.280 H Neutrophils # 13.7 H Lymphocytes # 0.5 L Monocytes # 1.3 H Eosinophils # 0.0 Basophils # 0.1 Nucleated Red Blood Cells # 0.0 Phosphorus Level 2.2 #L Magnesium Level 2.8 H Sodium Level 142 Potassium Level 4.5 Chloride Level 99 Carbon Dioxide Level 37 H Anion Gap 6 Blood Urea Nitrogen 33 H Creatinine 0.56 Est Glomerular Filtrat Rate mL/min Glucose Level 157 Calcium Level 9.3 Medications Medication Current Medications Gabapentin (Neurontin) 600 mg TID PO Last administered on 12/30/18 08:48; Admin Dose 600 MG; Start 12/21/18 at 21:00 Losartan Potassium (Cozaar) 100 mg DAILY PO Last administered on 12/30/18 08:48; Admin Dose 100 MG; Start 12/22/18 at 09:00 Metoprolol Succinate (Toprol Xl) 50 mg DAILY PO Last administered on 12/30/18 08:49; Admin Dose 50 MG; Start 12/22/18 at 09:00 Spironolactone (Aldactone) 25 mg DAILY PO Last administered on 12/30/18 08:49; Admin Dose 25 MG; Start 12/22/18 at 09:00 IV Flush (NS 3 ml) 3 ml PER PROTOCOL IV ; Start 12/21/18 at 16:00 Ondansetron HCl (Zofran Inj) 4 mg Q6H PRN IV NAUSEA/VOMITING Last administered on 12/27/18 20:52; Admin Dose 4 MG; Start 12/21/18 at 16:00 Acetaminophen (Tylenol Tab) 650 mg Q6H PRN PO .PAIN 1-3 OR TEMP Last administered on 12/25/18 10:35; Admin Dose 650 MG; Start 12/21/18 at 16:00 Heparin Sodium (Porcine) (Heparin (5000 Units/1ml)) 5,000 unit Q8 SC Last administered on 12/30/18 05:35; Admin Dose 5,000 UNIT; Start 12/21/18 at 22:00 Albuterol/ Ipratropium (Duoneb) 3 ml Q2H RESP THERAPY PRN HHN sob Last administered on 12/25/18 17:01; Admin Dose 3 ML; Start 12/21/18 at 16:00 Guaifenesin (Robitussin Liquid Cup) 200 mg Q4H PRN PO cough Last administered on 12/25/18 09:53; Admin Dose 200 MG; Start 12/21/18 at 16:00 Fluticasone/ Vilanterol (Breo Ellipta 100-25 Mcg Inh) 1 inh DAILY INH Last administered on 12/30/18 08:49; Admin Dose 1 INH; Start 12/22/18 at 09:00 Nystatin (Nystatin Powder) 1 applic BID TOP Last administered on 12/30/18 09:12; Admin Dose 1 APPLIC; Start 12/21/18 at 21:00 Sodium Chloride (Nacl) 1 gm TID PO Last administered on 12/30/18 08:47; Admin Dose 1 GM; Start 12/22/18 at 13:00 Famotidine (Pepcid) 20 mg BID PO Last administered on 12/30/18 08:48; Admin Dose 20 MG; Start 12/24/18 at 21:00 Polyethylene Glycol (Miralax) 17 gm BID PO Last administered on 12/30/18 08:49; Admin Dose 17 GM; Start 12/24/18 at 21:00 Hydralazine HCl (Apresoline) 10 mg Q6H PRN IV SBP>160 Last administered on 12/30/18 01:36; Admin Dose 10 MG; Start 12/24/18 at 17:00 Bisacodyl (Dulcolax) 10 mg DAILY PRN PO CONSTIPATION Last administered on 12/26/18 15:43; Admin Dose 10 MG; Start 12/25/18 at 12:00 Methylprednisolone Sodium Succinate (Solu-Medrol) 40 mg Q8 IV Last administered on 12/30/18 05:28; Admin Dose 40 MG; Start 12/25/18 at 14:00 Acetylcysteine (Mucomyst) 2 ml Q6H RESP THERAPY NEB Last administered on 12/30/18 07:57; Admin Dose 2 ML; Start 12/25/18 at 14:00 Albuterol/ Ipratropium (Duoneb) 3 ml Q4H RESP THERAPY HHN Last administered on 12/30/18 07:57; Admin Dose 3 ML; Start 12/25/18 at 21:00 Cefepime HCl 50 ml @ 100 mls/hr Q12 IVPB Last administered on 12/30/18 08:46; Admin Dose 100 MLS/HR; Start 12/26/18 at 16:00 Fluconazole (Diflucan) 100 mg DAILY PO Last administered on 12/30/18 08:48; Admin Dose 100 MG; Start 12/26/18 at 16:00 Tramadol HCl (Ultram) 50 mg Q6H PRN PO MODERATE PAIN LEVEL 4-6 Last administered on 12/29/18 19:57; Admin Dose 50 MG; Start 12/26/18 at 22:30 Lorazepam (Ativan) 1 mg Q4 PRN PO ANXIETY; Start 12/26/18 at 22:30 Acetaminophen (Tylenol Tab) 650 mg Q6H PRN PO MILD PAIN(1-3)OR ELEVATED TEMP; Start 12/26/18 at 22:30 Ketorolac Tromethamine (Toradol) 15 mg Q6H PRN IV PAIN Last administered on 12/30/18 08:47; Admin Dose 15 MG; Start 12/30/18 at 05:30; Stop 01/02/19 at 05:29 JORGE L BEAN Dec 30, 2018 12:36
--- NOTE | 2018-12-30 16:30 | PN ---
DATE: 12/30/2018 SUBJECTIVE: Chart reviewed. The patient on BiPAP, saturating 94%. PHYSICAL EXAMINATION: VITAL SIGNS: Blood pressure 158/80, pulse 87, respirations 20, temperature 98.8. HEENT: Pupils are equal and reactive to light. NECK: Supple, no JVD noted. LUNGS: Diminished breath sounds bilaterally. CARDIOVASCULAR: S1, S2 normal. ABDOMEN: Soft, nontender. No masses noted. EXTREMITIES: No clubbing or cyanosis noted. NEUROLOGICAL: Awake. LABORATORY DATA: WBC 15.8, hemoglobin 14, hematocrit 44.7, platelets 426. Sodium 142, potassium 4.5 , chloride 99, CO2 37, BUN 33, creatinine 0.57, glucose 157. IMPRESSION: 1. Acute hypoxemic and hypercapnic respiratory failure requiring BiPAP support. 2. Left lower lobe pneumonia. 3. History of hypertension. 4. History of asthma. RECOMMENDATIONS: 1. Continue antibiotics. 2. BiPAP. 3. Bronchodilators. 4. Oxygen. 5. Consultants noted. Dictated By: PIERRE KYLE MD, MA/RUSSEL Conf#: [id number] DID#: [id number] CC: AMIRA ROCKWELL MD;*EndCC*
[2018-12-31] VITALS (16 sets, daily range): BP systolic 115–186; BP diastolic 56–109; PULSE 68–122; RESP 18–32
[2018-12-31] MEDS: hydrALAzine 20 MG INJ IV PRN (00:23)
[2018-12-31] MEDS: KETOROLAC 15 MG INJ IV PRN ×2 (01:10→14:27)
[2018-12-31] MEDS: ALBUTEROL/IPRATROPIUM (NEB) 3 ML AMP HHN SCH ×6 (01:14→20:29)
[2018-12-31] MEDS: ACETYLCYSTEINE 20% 4 ML VIAL NEB SCH ×4 (01:14→20:30)
[2018-12-31] MEDS ORDERED: HALOPERIDOL 5 MG INJ IV ONE (01:30)
[2018-12-31] MEDS ORDERED: LORAZEPAM 2 MG INJ IV ONE (03:00)
[2018-12-31] MEDS: METHYLPREDNISOLONE 40 MG INJ IV SCH ×2 (05:43→13:25)
[2018-12-31] MEDS: HEPARIN 5,000 UNIT/1 ML VIAL SC SCH ×2 (06:05→13:30)
[2018-12-31] MEDS: LORAZEPAM 2 MG INJ IV PRN ×2 (08:18→15:11)
[2018-12-31] MEDS: SPIRONOLACTONE 25 MG TAB PO SCH (09:00)
[2018-12-31] MEDS: GABAPENTIN 300 MG CAP PO SCH ×3 (09:00→20:15)
[2018-12-31] MEDS: FLUTICASONE/VILANTEROL 100-25 INH SCH (09:00)
[2018-12-31] MEDS: LOSARTAN 50 MG TAB PO SCH (09:00)
[2018-12-31] MEDS: FLUCONAZOLE 100 MG TAB PO SCH (09:00)
[2018-12-31] MEDS: SODIUM CHLORIDE 1 GM TAB PO SCH ×3 (09:00→20:14)
[2018-12-31] MEDS: METOPROLOL (XL) 50 MG TAB PO SCH (09:00)
[2018-12-31] MEDS: POLYETHYLENE GLYCOL 17 GM PACKET PO SCH ×2 (09:00→20:14)
[2018-12-31] MEDS: FAMOTIDINE 20 MG TAB PO SCH ×2 (09:00→20:15)
[2018-12-31] MEDS: CEFEPIME 1GM/50 ML (PMX) 50 ML IVPB SCH (10:12)
[2018-12-31] MEDS: NYSTATIN 30 GM POWDER BTL TOP SCH ×2 (10:19→20:15)
--- NOTE | 2018-12-31 13:50 | CONS ---
Consult Date/Type/Reason Admit Date/Time Dec 21, 2018 at 11:58 Initial Consult Date 12/25/18 Type of Consult Pulmonary Date/Time of Note DATE: 12/31/18 TIME: 13:49 Subjective Unresponsive on bilevel ventilation Objective Vital Signs Date Temp Pulse Resp B/P (MAP) Pulse Ox O2 O2 Flow FiO2 Time Delivery Rate 12/31/18 98.4 100 18 124/64 94 11:37 (84) 12/31/18 100 11:01 12/30/18 BIPAP 04:30 12/28/18 15.0 19:51 Intake and Output 12/30/18 12/30/18 12/31/18 1414:59 22:59 06:59 IntakeIntake Total 120 ml 50 ml OutputOutput Total 420 ml 400 ml 1250 ml BalanceBalance -300 ml -400 ml -1200 ml Exam PHYSICAL EXAMINATION: VITAL SIGNS: Blood pressure 158/80, pulse 87, respirations 20, temperature 98.8. HEENT: Pupils are equal and reactive to light. NECK: Supple, no JVD noted. LUNGS: Diminished breath sounds bilaterally. CARDIOVASCULAR: S1, S2 normal. ABDOMEN: Soft, nontender. No masses noted. EXTREMITIES: No clubbing or cyanosis noted. NEUROLOGICAL: Awake. Vent Setting Fraction of Inspired Oxygen pe: 100 Results/Medications Result Diagram: 12/31/18 0601 12/31/18 0602 Results 24 hrs Laboratory Tests Test 12/31/18 06:01 12/31/18 06:02 White Blood Count 22.6 #H Red Blood Count 5.09 Hemoglobin 14.7 Hematocrit 47.1 H Mean Corpuscular Volume 92.5 Mean Corpuscular Hemoglobin 28.9 L Mean Corpuscular Hemoglobin Concent 31.2 L Red Cell Distribution Width 14.2 Platelet Count 396 Mean Platelet Volume 8.5 Immature Granulocytes % 1.400 H Neutrophils % 86.6 H Lymphocytes % 2.6 L Monocytes % 9.2 Eosinophils % 0.0 Basophils % 0.2 Nucleated Red Blood Cells % 0.1 H Immature Granulocytes # 0.320 H Neutrophils # 19.6 H Lymphocytes # 0.6 L Monocytes # 2.1 H Eosinophils # 0.0 Basophils # 0.0 Nucleated Red Blood Cells # 0.0 Sodium Level 144 Potassium Level 3.9 Chloride Level 98 Carbon Dioxide Level 40 H Anion Gap 6 Blood Urea Nitrogen 34 H Creatinine 0.68 Est Glomerular Filtrat Rate mL/min Glucose Level 153 Calcium Level 9.6 Phosphorus Level 2.1 L Magnesium Level 2.8 H Medications Current Medications Gabapentin (Neurontin) 600 mg TID PO Last administered on 12/30/18 08:48; Admin Dose 600 MG; Start 12/21/18 at 21:00 Losartan Potassium (Cozaar) 100 mg DAILY PO Last administered on 12/30/18 08:48; Admin Dose 100 MG; Start 12/22/18 at 09:00 Metoprolol Succinate (Toprol Xl) 50 mg DAILY PO Last administered on 12/30/18 08:49; Admin Dose 50 MG; Start 12/22/18 at 09:00 Spironolactone (Aldactone) 25 mg DAILY PO Last administered on 12/30/18 08:49; Admin Dose 25 MG; Start 12/22/18 at 09:00 IV Flush (NS 3 ml) 3 ml PER PROTOCOL IV ; Start 12/21/18 at 16:00 Ondansetron HCl (Zofran Inj) 4 mg Q6H PRN IV NAUSEA/VOMITING Last administered on 12/27/18 20:52; Admin Dose 4 MG; Start 12/21/18 at 16:00 Acetaminophen (Tylenol Tab) 650 mg Q6H PRN PO .PAIN 1-3 OR TEMP Last administered on 12/25/18 10:35; Admin Dose 650 MG; Start 12/21/18 at 16:00 Heparin Sodium (Porcine) (Heparin (5000 Units/1ml)) 5,000 unit Q8 SC Last administered on 12/31/18 13:30; Admin Dose 5,000 UNIT; Start 12/21/18 at 22:00 Albuterol/ Ipratropium (Duoneb) 3 ml Q2H RESP THERAPY PRN HHN sob Last administered on 12/25/18 17:01; Admin Dose 3 ML; Start 12/21/18 at 16:00 Guaifenesin (Robitussin Liquid Cup) 200 mg Q4H PRN PO cough Last administered on 12/25/18 09:53; Admin Dose 200 MG; Start 12/21/18 at 16:00 Fluticasone/ Vilanterol (Breo Ellipta 100-25 Mcg Inh) 1 inh DAILY INH Last administered on 12/30/18 08:49; Admin Dose 1 INH; Start 12/22/18 at 09:00 Nystatin (Nystatin Powder) 1 applic BID TOP Last administered on 12/31/18 10:19; Admin Dose 1 APPLIC; Start 12/21/18 at 21:00 Sodium Chloride (Nacl) 1 gm TID PO Last administered on 12/30/18 08:47; Admin Dose 1 GM; Start 12/22/18 at 13:00 Famotidine (Pepcid) 20 mg BID PO Last administered on 12/30/18 08:48; Admin Dose 20 MG; Start 12/24/18 at 21:00 Polyethylene Glycol (Miralax) 17 gm BID PO Last administered on 12/30/18 08:49; Admin Dose 17 GM; Start 12/24/18 at 21:00 Hydralazine HCl (Apresoline) 10 mg Q6H PRN IV SBP>160 Last administered on 12/31/18 00:23; Admin Dose 10 MG; Start 12/24/18 at 17:00 Bisacodyl (Dulcolax) 10 mg DAILY PRN PO CONSTIPATION Last administered on 12/26/18 15:43; Admin Dose 10 MG; Start 12/25/18 at 12:00 Methylprednisolone Sodium Succinate (Solu-Medrol) 40 mg Q8 IV Last administered on 12/31/18 13:25; Admin Dose 40 MG; Start 12/25/18 at 14:00 Acetylcysteine (Mucomyst) 2 ml Q6H RESP THERAPY NEB Last administered on 12/31/18 08:40; Admin Dose 2 ML; Start 12/25/18 at 14:00 Albuterol/ Ipratropium (Duoneb) 3 ml Q4H RESP THERAPY HHN Last administered on 12/31/18 08:41; Admin Dose 3 ML; Start 12/25/18 at 21:00 Cefepime HCl 50 ml @ 100 mls/hr Q12 IVPB Last administered on 12/31/18 10:12; Admin Dose 100 MLS/HR; Start 12/26/18 at 16:00 Fluconazole (Diflucan) 100 mg DAILY PO Last administered on 12/30/18 08:48; Admin Dose 100 MG; Start 12/26/18 at 16:00 Tramadol HCl (Ultram) 50 mg Q6H PRN PO MODERATE PAIN LEVEL 4-6 Last administered on 12/29/18at 19:57; Admin Dose 50 MG; Start 12/26/18 at 22:30 Lorazepam (Ativan) 1 mg Q4 PRN PO ANXIETY; Start 12/26/18 at 22:30 Acetaminophen (Tylenol Tab) 650 mg Q6H PRN PO MILD PAIN(1-3)OR ELEVATED TEMP; Start 12/26/18 at 22:30 Ketorolac Tromethamine (Toradol) 15 mg Q6H PRN IV PAIN Last administered on 12/31/18at 01:10; Admin Dose 15 MG; Start 12/30/18 at 05:30; Stop 01/02/19 at 05:29 Lorazepam (Ativan) 0.5 mg Q4 PRN IV Agitation Last administered on 12/31/18at 08:18; Admin Dose 0.5 MG; Start 12/31/18 at 08:00 Assessment/Plan Hospital Course (Demo Recall) IMPRESSION: 1. Acute hypoxemic and hypercapnic respiratory failure requiring BiPAP support. 2. Left lower lobe pneumonia. 3. History of hypertension. 4. History of asthma. RECOMMENDATIONS: 1. Continue antibiotics. 2. BiPAP. 3. Bronchodilators. 4. Oxygen. Consider hospice. HANNA CANTOR MD, [facility] Dec 31, 2018 13:50
--- NOTE | 2018-12-31 14:33 | CONS ---
Assessment/Plan Assessment/Plan Hospital Course (Demo Recall) Patient is lethargic on BiPAP in no distress afebrile WBC 22.6 platelets 396 neutrophils 86.6 BUN 34 creatinine 0.68 Chest x-ray from 12/25 revealed persistent left lower lobe atelectasis with small left pleural effusion. Vague patchy right upper lobe infiltrate concerning for pneumonia unchanged. Please see full report in the chart Microbiology: Blood culture on admission grew coag negative staph species sputum culture grew Angela albicans Antimicrobials: Cefepime Diflucan Chest x-ray: Interval complete opacification of the left hemithorax, likely corresponding to complete atelectasis/consolidation of the left lung, possibly combined with pleural fluid. Left-sided volume loss with associated mediastinal shift towards the left and hyperexpansion of the right lung. Atelectasis versus minimal infiltrates in the right lower lung. Diffuse mild interstitial prominence in the right lung. Interstitial prominence could reflect chronic change or mild interstitial edema. Physical examination: Well-developed very pleasant fragile elderly woman who is in no distress. Head atraumatic normocephalic neck is supple chest rise symmetrical breath sounds clear diminished bases with scattered crackles heart S1-S2 abdomen soft bowel sounds present extremities without cyanosis Assessment: 1. Acute hypoxemic respiratory failure /PNA ?aspiration 2. Coag negative staph bacteremia consistent with contaminant 3. Possible CHF 4. Ongoing leukocytosis, possibly steroid-induced 5. DNR Plan: Clinically unchanged, chest x-ray noted, pulmonary recommendations noted, change antibiotics to vancomycin and meropenem, send urine for culture Consultation Date/Type/Reason Admit Date/Time Dec 21, 2018 at 11:58 Initial Consult Date 12/25/18 Type of Consult id Date/Time of Note DATE: 12/31/18 TIME: 14:30 Exam/Review of Systems Exam Vitals Vital Signs Date Temp Pulse Resp B/P (MAP) Pulse Ox O2 O2 Flow FiO2 Time Delivery Rate 12/31/18 98.4 100 18 124/64 94 11:37 (84) 12/31/18 100 11:01 12/30/18 BIPAP 04:30 12/28/18 15.0 19:51 Intake and Output 12/30/18 12/30/18 12/31/18 1515:00 23:00 07:00 IntakeIntake Total 120 ml 50 ml OutputOutput Total 420 ml 400 ml 1250 ml BalanceBalance -300 ml -400 ml -1200 ml Results Result Diagram: 12/31/18 0601 12/31/18 0602 Results 24hrs Laboratory Tests Test 12/31/18 06:01 12/31/18 06:02 White Blood Count 22.6 #H Red Blood Count 5.09 Hemoglobin 14.7 Hematocrit 47.1 H Mean Corpuscular Volume 92.5 Mean Corpuscular Hemoglobin 28.9 L Mean Corpuscular Hemoglobin Concent 31.2 L Red Cell Distribution Width 14.2 Platelet Count 396 Mean Platelet Volume 8.5 Immature Granulocytes % 1.400 H Neutrophils % 86.6 H Lymphocytes % 2.6 L Monocytes % 9.2 Eosinophils % 0.0 Basophils % 0.2 Nucleated Red Blood Cells % 0.1 H Immature Granulocytes # 0.320 H Neutrophils # 19.6 H Lymphocytes # 0.6 L Monocytes # 2.1 H Eosinophils # 0.0 Basophils # 0.0 Nucleated Red Blood Cells # 0.0 Sodium Level 144 Potassium Level 3.9 Chloride Level 98 Carbon Dioxide Level 40 H Anion Gap 6 Blood Urea Nitrogen 34 H Creatinine 0.68 Est Glomerular Filtrat Rate mL/min Glucose Level 153 Calcium Level 9.6 Phosphorus Level 2.1 L Magnesium Level 2.8 H Medications Medication Current Medications Gabapentin (Neurontin) 600 mg TID PO Last administered on 12/30/18at 08:48; Admin Dose 600 MG; Start 12/21/18 at 21:00 Losartan Potassium (Cozaar) 100 mg DAILY PO Last administered on 12/30/18 08:48; Admin Dose 100 MG; Start 12/22/18 at 09:00 Metoprolol Succinate (Toprol Xl) 50 mg DAILY PO Last administered on 12/30/18at 08:49; Admin Dose 50 MG; Start 12/22/18 at 09:00 Spironolactone (Aldactone) 25 mg DAILY PO Last administered on 12/30/18 08:49; Admin Dose 25 MG; Start 12/22/18 at 09:00 IV Flush (NS 3 ml) 3 ml PER PROTOCOL IV ; Start 12/21/18 at 16:00 Ondansetron HCl (Zofran Inj) 4 mg Q6H PRN IV NAUSEA/VOMITING Last administered on 12/27/18at 20:52; Admin Dose 4 MG; Start 12/21/18 at 16:00 Acetaminophen (Tylenol Tab) 650 mg Q6H PRN PO .PAIN 1-3 OR TEMP Last administered on 12/25/18 10:35; Admin Dose 650 MG; Start 12/21/18 at 16:00 Heparin Sodium (Porcine) (Heparin (5000 Units/1ml)) 5,000 unit Q8 SC Last administered on 12/31/18 13:30; Admin Dose 5,000 UNIT; Start 12/21/18 at 22:00 Albuterol/ Ipratropium (Duoneb) 3 ml Q2H RESP THERAPY PRN HHN sob Last administered on 12/25/18 17:01; Admin Dose 3 ML; Start 12/21/18 at 16:00 Guaifenesin (Robitussin Liquid Cup) 200 mg Q4H PRN PO cough Last administered on 12/25/18 09:53; Admin Dose 200 MG; Start 12/21/18 at 16:00 Fluticasone/ Vilanterol (Breo Ellipta 100-25 Mcg Inh) 1 inh DAILY INH Last administered on 12/30/18 08:49; Admin Dose 1 INH; Start 12/22/18 at 09:00 Nystatin (Nystatin Powder) 1 applic BID TOP Last administered on 12/31/18 10:19; Admin Dose 1 APPLIC; Start 12/21/18 at 21:00 Sodium Chloride (Nacl) 1 gm TID PO Last administered on 12/30/18 08:47; Admin Dose 1 GM; Start 12/22/18 at 13:00 Famotidine (Pepcid) 20 mg BID PO Last administered on 12/30/18 08:48; Admin Dose 20 MG; Start 12/24/18 at 21:00 Polyethylene Glycol (Miralax) 17 gm BID PO Last administered on 12/30/18 08:49; Admin Dose 17 GM; Start 12/24/18 at 21:00 Hydralazine HCl (Apresoline) 10 mg Q6H PRN IV SBP>160 Last administered on 12/31/18 00:23; Admin Dose 10 MG; Start 12/24/18 at 17:00 Bisacodyl (Dulcolax) 10 mg DAILY PRN PO CONSTIPATION Last administered on 12/26/18 15:43; Admin Dose 10 MG; Start 12/25/18 at 12:00 Methylprednisolone Sodium Succinate (Solu-Medrol) 40 mg Q8 IV Last administered on 12/31/18 13:25; Admin Dose 40 MG; Start 12/25/18 at 14:00 Acetylcysteine (Mucomyst) 2 ml Q6H RESP THERAPY NEB Last administered on 12/31/18 14:12; Admin Dose 2 ML; Start 12/25/18 at 14:00 Albuterol/ Ipratropium (Duoneb) 3 ml Q4H RESP THERAPY HHN Last administered on 12/31/18 14:12; Admin Dose 3 ML; Start 12/25/18 at 21:00 Cefepime HCl 50 ml @ 100 mls/hr Q12 IVPB Last administered on 12/31/18 10:12; Admin Dose 100 MLS/HR; Start 12/26/18 at 16:00 Fluconazole (Diflucan) 100 mg DAILY PO Last administered on 12/30/18 08:48; Admin Dose 100 MG; Start 12/26/18 at 16:00 Tramadol HCl (Ultram) 50 mg Q6H PRN PO MODERATE PAIN LEVEL 4-6 Last administered on 12/29/18 19:57; Admin Dose 50 MG; Start 12/26/18 at 22:30 Lorazepam (Ativan) 1 mg Q4 PRN PO ANXIETY; Start 12/26/18 at 22:30 Acetaminophen (Tylenol Tab) 650 mg Q6H PRN PO MILD PAIN(1-3)OR ELEVATED TEMP; Start 12/26/18 at 22:30 Ketorolac Tromethamine (Toradol) 15 mg Q6H PRN IV PAIN Last administered on 12/31/18 01:10; Admin Dose 15 MG; Start 12/30/18 at 05:30; Stop 01/02/19 at 05:29 Lorazepam (Ativan) 0.5 mg Q4 PRN IV Agitation Last administered on 12/31/18 08:18; Admin Dose 0.5 MG; Start 12/31/18 at 08:00 ZORAIDA OLSON NP Dec 31, 2018 14:33
[2018-12-31] MEDS ORDERED: VANCOMYCIN IV PER PHARMACY XX SCH (15:00)
--- NOTE | 2018-12-31 15:18 | PN ---
Date/Time of Note Date/Time of Note DATE: 12/31/18 TIME: 15:14 Assessment/Plan VTE Prophylaxis Risk score (from Ns)>0 risk: 7 SCD applied (from Ns): Yes Pharmacological prophylaxis: other Lines/Catheters IV Catheter Type (from Nrs): Peripheral IV Urinary Cath still in place: Yes Reason Cath still needed: other (indicate) (monitor I&O) Assessment/Plan Hospital Course 1. Acute respiratory failure. Hypoxic and hypercapnic. suspect from underlying COPD exacerbation. continue breathing tx and steroid on bipap f/u pulmonary recommendations 2. Suspect pneumonia. ABX as per ID. 3. Neuropathy. Continue gabapentin. 4. Staph aureus bacteremia. Likely from sample contamination. monitor DISPO/PLAN: Remains on BiPAP with worse x-ray. Follow-up on pulmonary recommendations. Follow-up with family for goals of care. Discussed POC with Dr. Green Result Diagram: 12/31/18 0601 12/31/18 0602 Results 24hrs Laboratory Tests Test 12/31/18 06:01 12/31/18 06:02 White Blood Count 22.6 #H Red Blood Count 5.09 Hemoglobin 14.7 Hematocrit 47.1 H Mean Corpuscular Volume 92.5 Mean Corpuscular Hemoglobin 28.9 L Mean Corpuscular Hemoglobin Concent 31.2 L Red Cell Distribution Width 14.2 Platelet Count 396 Mean Platelet Volume 8.5 Immature Granulocytes % 1.400 H Neutrophils % 86.6 H Lymphocytes % 2.6 L Monocytes % 9.2 Eosinophils % 0.0 Basophils % 0.2 Nucleated Red Blood Cells % 0.1 H Immature Granulocytes # 0.320 H Neutrophils # 19.6 H Lymphocytes # 0.6 L Monocytes # 2.1 H Eosinophils # 0.0 Basophils # 0.0 Nucleated Red Blood Cells # 0.0 Sodium Level 144 Potassium Level 3.9 Chloride Level 98 Carbon Dioxide Level 40 H Anion Gap 6 Blood Urea Nitrogen 34 H Creatinine 0.68 Est Glomerular Filtrat Rate mL/min Glucose Level 153 Calcium Level 9.6 Phosphorus Level 2.1 L Magnesium Level 2.8 H Subjective 24 Hr Interval Summary Free Text/Dictation seen on bipap during visit. slightly somnolent Exam/Review of Systems Exam Vitals Vital Signs Date Temp Pulse Resp B/P (MAP) Pulse Ox O2 O2 Flow FiO2 Time Delivery Rate 12/31/18 98.2 94 32 167/76 94 15:01 (106) 12/31/18 100 11:01 12/30/18 BIPAP 04:30 12/28/18 15.0 19:51 Intake and Output 12/30/18 12/30/18 12/31/18 1515:00 23:00 07:00 IntakeIntake Total 120 ml 50 ml OutputOutput Total 420 ml 400 ml 1250 ml BalanceBalance -300 ml -400 ml -1200 ml Constitutional: No alert Head: normocephalic Neck: No jvd Respiratory: diminished breath sounds (left lung field ) Cardiovascular: other (regular rate ) Gastrointestinal: soft Extremities: No edema Neurological: No nl mental status (somnolent) Results Results 24hrs Laboratory Tests Test 12/31/18 06:01 12/31/18 06:02 White Blood Count 22.6 #H Red Blood Count 5.09 Hemoglobin 14.7 Hematocrit 47.1 H Mean Corpuscular Volume 92.5 Mean Corpuscular Hemoglobin 28.9 L Mean Corpuscular Hemoglobin Concent 31.2 L Red Cell Distribution Width 14.2 Platelet Count 396 Mean Platelet Volume 8.5 Immature Granulocytes % 1.400 H Neutrophils % 86.6 H Lymphocytes % 2.6 L Monocytes % 9.2 Eosinophils % 0.0 Basophils % 0.2 Nucleated Red Blood Cells % 0.1 H Immature Granulocytes # 0.320 H Neutrophils # 19.6 H Lymphocytes # 0.6 L Monocytes # 2.1 H Eosinophils # 0.0 Basophils # 0.0 Nucleated Red Blood Cells # 0.0 Sodium Level 144 Potassium Level 3.9 Chloride Level 98 Carbon Dioxide Level 40 H Anion Gap 6 Blood Urea Nitrogen 34 H Creatinine 0.68 Est Glomerular Filtrat Rate mL/min Glucose Level 153 Calcium Level 9.6 Phosphorus Level 2.1 L Magnesium Level 2.8 H Medications Medication Current Medications Gabapentin (Neurontin) 600 mg TID PO Last administered on 12/30/18at 08:48; Admin Dose 600 MG; Start 12/21/18 at 21:00 Losartan Potassium (Cozaar) 100 mg DAILY PO Last administered on 12/30/18at 08:48; Admin Dose 100 MG; Start 12/22/18 at 09:00 Metoprolol Succinate (Toprol Xl) 50 mg DAILY PO Last administered on 12/30/18at 08:49; Admin Dose 50 MG; Start 12/22/18 at 09:00 Spironolactone (Aldactone) 25 mg DAILY PO Last administered on 12/30/18 08:49; Admin Dose 25 MG; Start 12/22/18 at 09:00 IV Flush (NS 3 ml) 3 ml PER PROTOCOL IV ; Start 12/21/18 at 16:00 Ondansetron HCl (Zofran Inj) 4 mg Q6H PRN IV NAUSEA/VOMITING Last administered on 12/27/18 20:52; Admin Dose 4 MG; Start 12/21/18 at 16:00 Acetaminophen (Tylenol Tab) 650 mg Q6H PRN PO .PAIN 1-3 OR TEMP Last administered on 12/25/18 10:35; Admin Dose 650 MG; Start 12/21/18 at 16:00 Heparin Sodium (Porcine) (Heparin (5000 Units/1ml)) 5,000 unit Q8 SC Last administered on 12/31/18 13:30; Admin Dose 5,000 UNIT; Start 12/21/18 at 22:00 Albuterol/ Ipratropium (Duoneb) 3 ml Q2H RESP THERAPY PRN HHN sob Last administered on 12/25/18 17:01; Admin Dose 3 ML; Start 12/21/18 at 16:00 Guaifenesin (Robitussin Liquid Cup) 200 mg Q4H PRN PO cough Last administered on 12/25/18 09:53; Admin Dose 200 MG; Start 12/21/18 at 16:00 Fluticasone/ Vilanterol (Breo Ellipta 100-25 Mcg Inh) 1 inh DAILY INH Last administered on 12/30/18 08:49; Admin Dose 1 INH; Start 12/22/18 at 09:00 Nystatin (Nystatin Powder) 1 applic BID TOP Last administered on 12/31/18 10:19; Admin Dose 1 APPLIC; Start 12/21/18 at 21:00 Sodium Chloride (Nacl) 1 gm TID PO Last administered on 12/30/18 08:47; Admin Dose 1 GM; Start 12/22/18 at 13:00 Famotidine (Pepcid) 20 mg BID PO Last administered on 12/30/18 08:48; Admin Dose 20 MG; Start 12/24/18 at 21:00 Polyethylene Glycol (Miralax) 17 gm BID PO Last administered on 12/30/18 08:49; Admin Dose 17 GM; Start 12/24/18 at 21:00 Hydralazine HCl (Apresoline) 10 mg Q6H PRN IV SBP>160 Last administered on 12/31/18 00:23; Admin Dose 10 MG; Start 12/24/18 at 17:00 Bisacodyl (Dulcolax) 10 mg DAILY PRN PO CONSTIPATION Last administered on 12/26/18 15:43; Admin Dose 10 MG; Start 12/25/18 at 12:00 Methylprednisolone Sodium Succinate (Solu-Medrol) 40 mg Q8 IV Last administered on 12/31/18 13:25; Admin Dose 40 MG; Start 12/25/18 at 14:00 Acetylcysteine (Mucomyst) 2 ml Q6H RESP THERAPY NEB Last administered on 12/31/18 14:12; Admin Dose 2 ML; Start 12/25/18 at 14:00 Albuterol/ Ipratropium (Duoneb) 3 ml Q4H RESP THERAPY HHN Last administered on 12/31/18 14:12; Admin Dose 3 ML; Start 12/25/18 at 21:00 Tramadol HCl (Ultram) 50 mg Q6H PRN PO MODERATE PAIN LEVEL 4-6 Last administered on 12/29/18 19:57; Admin Dose 50 MG; Start 12/26/18 at 22:30 Lorazepam (Ativan) 1 mg Q4 PRN PO ANXIETY; Start 12/26/18 at 22:30 Acetaminophen (Tylenol Tab) 650 mg Q6H PRN PO MILD PAIN(1-3)OR ELEVATED TEMP; Start 12/26/18 at 22:30 Ketorolac Tromethamine (Toradol) 15 mg Q6H PRN IV PAIN Last administered on 12/31/18 14:27; Admin Dose 15 MG; Start 12/30/18 at 05:30; Stop 01/02/19 at 05:29 Lorazepam (Ativan) 0.5 mg Q4 PRN IV Agitation Last administered on 12/31/18 08:18; Admin Dose 0.5 MG; Start 12/31/18 at 08:00 Vancomycin HCl (Vanco Iv Per Pharmacy) VANCOMYCIN PER PHARMACY PER PROTOCOL XX ; Start 12/31/18 at 15:00; Status UNV Meropenem/Sodium Chloride 50 ml @ 100 mls/hr Q12 IVPB ; Start 12/31/18 at 21:00; Status UNV ARLETTE CHRISTY NP Dec 31, 2018 15:18
[2018-12-31] MEDS ORDERED: VANCOMYCIN 1.25 GM/NS 250 ML 250 ML IVPB SCH (17:00)
[2018-12-31] MEDS: MEROPENEM 1 GM/50ML(PMX) 50 ML IVPB SCH (20:16)
[2019-01-01] VITALS (10 sets, daily range): BP systolic 132–188; BP diastolic 64–95; PULSE 72–133; RESP 20–32
[2019-01-01] MEDS: ALBUTEROL/IPRATROPIUM (NEB) 3 ML AMP HHN SCH ×5 (00:52→21:55)
[2019-01-01] MEDS: ACETYLCYSTEINE 20% 4 ML VIAL NEB SCH ×2 (00:52→08:08)
[2019-01-01] MEDS: METHYLPREDNISOLONE 40 MG INJ IV SCH ×3 (03:12→13:55)
[2019-01-01] MEDS: LORAZEPAM 2 MG INJ IV PRN ×4 (03:13→21:42)
[2019-01-01] MEDS: HEPARIN 5,000 UNIT/1 ML VIAL SC SCH ×3 (03:24→14:03)
[2019-01-01] MEDS ORDERED: VANCOMYCIN 750 MG (PMX) 250 ML IVPB SCH (05:00)
[2019-01-01] MEDS: NYSTATIN 30 GM POWDER BTL TOP SCH (08:49)
[2019-01-01] MEDS: SODIUM CHLORIDE 1 GM TAB PO SCH ×2 (09:00→13:00)
[2019-01-01] MEDS: FLUTICASONE/VILANTEROL 100-25 INH SCH (09:00)
[2019-01-01] MEDS: LOSARTAN 50 MG TAB PO SCH (09:00)
[2019-01-01] MEDS: SPIRONOLACTONE 25 MG TAB PO SCH (09:00)
[2019-01-01] MEDS: POLYETHYLENE GLYCOL 17 GM PACKET PO SCH (09:00)
[2019-01-01] MEDS: METOPROLOL (XL) 50 MG TAB PO SCH (09:00)
[2019-01-01] MEDS: FAMOTIDINE 20 MG TAB PO SCH (09:00)
[2019-01-01] MEDS: GABAPENTIN 300 MG CAP PO SCH ×2 (09:00→13:00)
[2019-01-01] MEDS: MEROPENEM 1 GM/50ML(PMX) 50 ML IVPB SCH (09:20)
[2019-01-01] MEDS ORDERED: METOPROLOL 5 MG INJ IV ONE (10:00)
--- NOTE | 2019-01-01 11:19 | CONS ---
Consult Date/Type/Reason Admit Date/Time Dec 21, 2018 at 11:58 Initial Consult Date 12/25/18 Type of Consult Pulmonary Date/Time of Note DATE: 01/01/19 TIME: 11:16 Subjective Remains on bipap. 100% fi02. Objective Vital Signs Date Temp Pulse Resp B/P (MAP) Pulse Ox O2 O2 Flow FiO2 Time Delivery Rate 01/01/19 98.2 89 25 132/64 98 11:15 (86) 01/01/19 100 09:54 01/01/19 Non 15.0 08:09 Rebreather Mask Intake and Output 12/31/18 12/31/18 01/01/19 1414:59 22:59 06:59 IntakeIntake Total 50 ml OutputOutput Total 300 ml 100 ml BalanceBalance 50 ml -300 ml -100 ml Exam PHYSICAL EXAMINATION: VITAL SIGNS: HEENT: Pupils are equal and reactive to light. NECK: Supple, no JVD noted. LUNGS: Diminished breath sounds bilaterally. CARDIOVASCULAR: S1, S2 normal. ABDOMEN: Soft, nontender. No masses noted. EXTREMITIES: No clubbing or cyanosis noted. NEUROLOGICAL: Awake. Vent Setting Fraction of Inspired Oxygen pe: 100 Results/Medications Result Diagram: 12/31/18 0601 12/31/18 0602 Medications Current Medications Gabapentin (Neurontin) 600 mg TID PO Last administered on 12/31/18at 20:15; Admin Dose 600 MG; Start 12/21/18 at 21:00 Losartan Potassium (Cozaar) 100 mg DAILY PO Last administered on 12/30/18at 08:48; Admin Dose 100 MG; Start 12/22/18 at 09:00 Metoprolol Succinate (Toprol Xl) 50 mg DAILY PO Last administered on 12/30/18at 08:49; Admin Dose 50 MG; Start 12/22/18 at 09:00 Spironolactone (Aldactone) 25 mg DAILY PO Last administered on 12/30/18at 08:49; Admin Dose 25 MG; Start 12/22/18 at 09:00 IV Flush (NS 3 ml) 3 ml PER PROTOCOL IV ; Start 12/21/18 at 16:00 Ondansetron HCl (Zofran Inj) 4 mg Q6H PRN IV NAUSEA/VOMITING Last administered on 12/27/18at 20:52; Admin Dose 4 MG; Start 12/21/18 at 16:00 Acetaminophen (Tylenol Tab) 650 mg Q6H PRN PO .PAIN 1-3 OR TEMP Last administered on 12/25/18 10:35; Admin Dose 650 MG; Start 12/21/18 at 16:00 Heparin Sodium (Porcine) (Heparin (5000 Units/1ml)) 5,000 unit Q8 SC Last administered on 01/01/19 06:00; Admin Dose 5,000 UNIT; Start 12/21/18 at 22:00 Albuterol/ Ipratropium (Duoneb) 3 ml Q2H RESP THERAPY PRN HHN sob Last administered on 12/25/18 17:01; Admin Dose 3 ML; Start 12/21/18 at 16:00 Guaifenesin (Robitussin Liquid Cup) 200 mg Q4H PRN PO cough Last administered on 12/25/18 09:53; Admin Dose 200 MG; Start 12/21/18 at 16:00 Fluticasone/ Vilanterol (Breo Ellipta 100-25 Mcg Inh) 1 inh DAILY INH Last administered on 12/30/18 08:49; Admin Dose 1 INH; Start 12/22/18 at 09:00 Nystatin (Nystatin Powder) 1 applic BID TOP Last administered on 01/01/19 08:49; Admin Dose 1 APPLIC; Start 12/21/18 at 21:00 Sodium Chloride (Nacl) 1 gm TID PO Last administered on 12/31/18 20:14; Admin Dose 1 GM; Start 12/22/18 at 13:00 Famotidine (Pepcid) 20 mg BID PO Last administered on 12/31/18 20:15; Admin Dose 20 MG; Start 12/24/18 at 21:00 Polyethylene Glycol (Miralax) 17 gm BID PO Last administered on 12/31/18 20: 14; Admin Dose 17 GM; Start 12/24/18 at 21:00 Hydralazine HCl (Apresoline) 10 mg Q6H PRN IV SBP>160 Last administered on 12/31/18 00:23; Admin Dose 10 MG; Start 12/24/18 at 17:00 Bisacodyl (Dulcolax) 10 mg DAILY PRN PO CONSTIPATION Last administered on 12/26/18 15:43; Admin Dose 10 MG; Start 12/25/18 at 12:00 Methylprednisolone Sodium Succinate (Solu-Medrol) 40 mg Q8 IV Last administered on 01/01/19at 06:00; Admin Dose 40 MG; Start 12/25/18 at 14:00 Acetylcysteine (Mucomyst) 2 ml Q6H RESP THERAPY NEB Last administered on 01/01/19 08:08; Admin Dose 2 ML; Start 12/25/18 at 14:00 Albuterol/ Ipratropium (Duoneb) 3 ml Q4H RESP THERAPY HHN Last administered on 01/01/19at 08:08; Admin Dose 3 ML; Start 12/25/18 at 21:00 Tramadol HCl (Ultram) 50 mg Q6H PRN PO MODERATE PAIN LEVEL 4-6 Last adminis tered on 12/29/18at 19:57; Admin Dose 50 MG; Start 12/26/18 at 22:30 Lorazepam (Ativan) 1 mg Q4 PRN PO ANXIETY; Start 12/26/18 at 22:30 Acetaminophen (Tylenol Tab) 650 mg Q6H PRN PO MILD PAIN(1-3)OR ELEVATED TEMP; Start 12/26/18 at 22:30 Ketorolac Tromethamine (Toradol) 15 mg Q6H PRN IV PAIN Last administered on 12/31/18at 14:27; Admin Dose 15 MG; Start 12/30/18 at 05:30; Stop 01/02/19 at 05:29 Lorazepam (Ativan) 0.5 mg Q4 PRN IV Agitation Last administered on 01/01/19at 08:46; Admin Dose 0.5 MG; Start 12/31/18 at 08:00 Vancomycin HCl (Vanco Iv Per Pharmacy) VANCOMYCIN PER PHARMACY PER PROTOCOL XX ; Start 12/31/18 at 15:00 Meropenem/Sodium Chloride 50 ml @ 100 mls/hr Q12 IVPB Last administered on 01/01/19at 09:20; Admin Dose 100 MLS/HR; Start 12/31/18 at 21:00 Vancomycin/Sodium Chloride 250 ml @ 125 mls/hr Q12H IVPB Last administered on 01/01/19at 04:14; Admin Dose 125 MLS/HR; Start 01/01/19 at 05:00 Miscellaneous Information (*Rx Drug Level Order Reminder*) VANCO TR 0400 ONCE XX ; Start 01/02/19 at 04:00; Stop 01/02/19 at 04:01 Assessment/Plan Hospital Course (Demo Recall) IMPRESSION: 1. Acute hypoxemic and hypercapnic respiratory failure requiring BiPAP support. 2. Left lower lobe pneumonia. 3. History of hypertension. 4. History of asthma. RECOMMENDATIONS: 1. Continue antibiotics. 2. BiPAP. 3. Bronchodilators. 4. Oxygen. discussed with staff / social science instructor. Admit to inpatient hospice. HANNA CANTOR MD, [facility] Jan 01, 2019 11:19
--- NOTE | 2019-01-01 11:29 | PN ---
Date/Time of Note Date/Time of Note DATE: 01/01/19 TIME: 11:24 Assessment/Plan VTE Prophylaxis Risk score (from Ns)>0 risk: 8 SCD applied (from Ns): Yes Pharmacological prophylaxis: heparin Lines/Catheters IV Catheter Type (from Nrs): Peripheral IV Urinary Cath still in place: Yes Reason Cath still needed: other (indicate) (monitor I&O) Assessment/Plan Hospital Course 1. Acute respiratory failure. Hypoxic and hypercapnic. suspect from underlying COPD exacerbation. continue breathing tx, steroid, CPT on bipap f/u pulmonary recommendations 2. Suspect pneumonia. ABX as per ID. 3. Neuropathy. Continue gabapentin. 4. Staph aureus bacteremia. suspect from sample contamination. monitor DISPO/PLAN: Remains on BiPAP. little better aeration per recent CXR. Follow-up on pulmonary recommendations. Discussed case with care team, will plan for hospice eval Discussed POC with Dr. Green Result Diagram: 12/31/18 0601 12/31/18 0602 Subjective 24 Hr Interval Summary Free Text/Dictation Patient remains on bipap. alert, family friend at bedside. Exam/Review of Systems Exam Vitals Vital Signs Date Temp Pulse Resp B/P (MAP) Pulse Ox O2 O2 Flow FiO2 Time Delivery Rate 01/01/19 98.2 89 25 132/64 98 11:15 (86) 01/01/19 100 09:54 01/01/19 Non 15.0 08:09 Rebreather Mask Intake and Output 12/31/18 12/31/18 01/01/19 1515:00 23:00 07:00 IntakeIntake Total 50 ml OutputOutput Total 300 ml 100 ml BalanceBalance 50 ml -300 ml -100 ml Exam Constitutional: alert Head: normocephalic Neck: No jvd Respiratory: diminished breath sounds (left lung field ) Cardiovascular: irregular rate Gastrointestinal: soft Extremities: No edema Neurological: No nl mental status (somnolent) Medications Medication Current Medications Gabapentin (Neurontin) 600 mg TID PO Last administered on 12/31/18at 20:15; Admin Dose 600 MG; Start 12/21/18 at 21:00 Losartan Potassium (Cozaar) 100 mg DAILY PO Last administered on 12/30/18at 08:48; Admin Dose 100 MG; Start 12/22/18 at 09:00 Metoprolol Succinate (Toprol Xl) 50 mg DAILY PO Last administered on 12/30/18 08:49; Admin Dose 50 MG; Start 12/22/18 at 09:00 Spironolactone (Aldactone) 25 mg DAILY PO Last administered on 12/30/18 08:49; Admin Dose 25 MG; Start 12/22/18 at 09:00 IV Flush (NS 3 ml) 3 ml PER PROTOCOL IV ; Start 12/21/18 at 16:00 Ondansetron HCl (Zofran Inj) 4 mg Q6H PRN IV NAUSEA/VOMITING Last administered on 12/27/18 20:52; Admin Dose 4 MG; Start 12/21/18 at 16:00 Acetaminophen (Tylenol Tab) 650 mg Q6H PRN PO .PAIN 1-3 OR TEMP Last administered on 12/25/18 10:35; Admin Dose 650 MG; Start 12/21/18 at 16:00 Heparin Sodium (Porcine) (Heparin (5000 Units/1ml)) 5,000 unit Q8 SC Last administered on 01/01/19 06:00; Admin Dose 5,000 UNIT; Start 12/21/18 at 22:00 Albuterol/ Ipratropium (Duoneb) 3 ml Q2H RESP THERAPY PRN HHN sob Last administered on 12/25/18 17:01; Admin Dose 3 ML; Start 12/21/18 at 16:00 Guaifenesin (Robitussin Liquid Cup) 200 mg Q4H PRN PO cough Last administered on 12/25/18 09:53; Admin Dose 200 MG; Start 12/21/18 at 16:00 Fluticasone/ Vilanterol (Breo Ellipta 100-25 Mcg Inh) 1 inh DAILY INH Last administered on 12/30/18 08:49; Admin Dose 1 INH; Start 12/22/18 at 09:00 Nystatin (Nystatin Powder) 1 applic BID TOP Last administered on 01/01/19 08:49; Admin Dose 1 APPLIC; Start 12/21/18 at 21:00 Sodium Chloride (Nacl) 1 gm TID PO Last administered on 12/31/18 20:14; Admin Dose 1 GM; Start 12/22/18 at 13:00 Famotidine (Pepcid) 20 mg BID PO Last administered on 12/31/18 20:15; Admin Dose 20 MG; Start 12/24/18 at 21:00 Polyethylene Glycol (Miralax) 17 gm BID PO Last administered on 12/31/18 20:14; Admin Dose 17 GM; Start 12/24/18 at 21:00 Hydralazine HCl (Apresoline) 10 mg Q6H PRN IV SBP>160 Last administered on 12/31/18 00:23; Admin Dose 10 MG; Start 12/24/18 at 17:00 Bisacodyl (Dulcolax) 10 mg DAILY PRN PO CONSTIPATION Last administered on 12/26/18 15:43; Admin Dose 10 MG; Start 12/25/18 at 12:00 Methylprednisolone Sodium Succinate (Solu-Medrol) 40 mg Q8 IV Last administered on 01/01/19 06:00; Admin Dose 40 MG; Start 12/25/18 at 14:00 Acetylcysteine (Mucomyst) 2 ml Q6H RESP THERAPY NEB Last administered on 01/01/19 08:08; Admin Dose 2 ML; Start 12/25/18 at 14:00 Albuterol/ Ipratropium (Duoneb) 3 ml Q4H RESP THERAPY HHN Last administered on 01/01/19 08:08; Admin Dose 3 ML; Start 12/25/18 at 21:00 Tramadol HCl (Ultram) 50 mg Q6H PRN PO MODERATE PAIN LEVEL 4-6 Last administered on 12/29/18 19:57; Admin Dose 50 MG; Start 12/26/18 at 22:30 Lorazepam (Ativan) 1 mg Q4 PRN PO ANXIETY; Start 12/26/18 at 22:30 Acetaminophen (Tylenol Tab) 650 mg Q6H PRN PO MILD PAIN(1-3)OR ELEVATED TEMP; Start 12/26/18 at 22:30 Ketorolac Tromethamine (Toradol) 15 mg Q6H PRN IV PAIN Last administered on 12/31/18 14:27; Admin Dose 15 MG; Start 12/30/18 at 05:30; Stop 01/02/19 at 05:29 Lorazepam (Ativan) 0.5 mg Q4 PRN IV Agitation Last administered on 01/01/19 08:46; Admin Dose 0.5 MG; Start 12/31/18 at 08:00 Vancomycin HCl (Vanco Iv Per Pharmacy) VANCOMYCIN PER PHARMACY PER PROTOCOL XX ; Start 12/31/18 at 15:00 Meropenem/Sodium Chloride 50 ml @ 100 mls/hr Q12 IVPB Last administered on 01/01/19at 09:20; Admin Dose 100 MLS/HR; Start 12/31/18 at 21:00 Vancomycin/Sodium Chloride 250 ml @ 125 mls/hr Q12H IVPB Last administered on 01/01/19at 04:14; Admin Dose 125 MLS/HR; Start 01/01/19 at 05:00 Miscellaneous Information (*Rx Drug Level Order Reminder*) VANCO TR 0400 ONCE XX ; Start 01/02/19 at 04:00; Stop 01/02/19 at 04:01 ARLETTE CHRISTY NP Jan 01, 2019 11:29
--- NOTE | 2019-01-01 13:34 | CONS ---
Assessment/Plan Assessment/Plan Hospital Course (Demo Recall) No events, lethargic, on BiPAP, she has a visitor who is her best friend at bedside. No fevers Microbiology: Blood culture on admission grew coag negative staph species sputum culture grew Angela albicans Antimicrobials: Vancomycin, meropenem Physical examination: Well-developed very pleasant fragile elderly woman who is in no distress. Head atraumatic normocephalic neck is supple chest rise symmetrical breath sounds clear diminished bases with scattered crackles heart S1-S2 abdomen soft bowel sounds present extremities without cyanosis Assessment: 1. Acute hypoxemic respiratory failure /PNA ?aspiration 2. Coag negative staph bacteremia consistent with contaminant 3. Possible CHF 4. Ongoing leukocytosis, possibly steroid-induced 5. DNR Plan: Clinically unchanged, continue antibiotics, plan for hospice eval Consultation Date/Type/Reason Admit Date/Time Dec 21, 2018 at 11:58 Initial Consult Date 12/25/18 Type of Consult id Date/Time of Note DATE: 01/01/19 TIME: 13:33 Exam/Review of Systems Exam Vitals Vital Signs Date Temp Pulse Resp B/P (MAP) Pulse Ox O2 O2 Flow FiO2 Time Delivery Rate 01/01/19 97 100 100 12:56 01/01/19 98.2 25 132/64 11:15 (86) 01/01/19 Non 15.0 08:09 Rebreather Mask Intake and Output 12/31/18 12/31/18 01/01/19 1515:00 23:00 07:00 IntakeIntake Total 50 ml OutputOutput Total 300 ml 100 ml BalanceBalance 50 ml -300 ml -100 ml Results Result Diagram: 12/31/18 0601 12/31/18 0602 Medications Medication Current Medications Gabapentin (Neurontin) 600 mg TID PO Last administered on 12/31/18at 20:15; Admin Dose 600 MG; Start 12/21/18 at 21:00 Losartan Potassium (Cozaar) 100 mg DAILY PO Last administered on 12/30/18at 08:48; Admin Dose 100 MG; Start 12/22/18 at 09:00 Metoprolol Succinate (Toprol Xl) 50 mg DAILY PO Last administered on 12/30/18at 08:49; Admin Dose 50 MG; Start 12/22/18 at 09:00 Spironolactone (Aldactone) 25 mg DAILY PO Last administered on 12/30/18 08:49; Admin Dose 25 MG; Start 12/22/18 at 09:00 IV Flush (NS 3 ml) 3 ml PER PROTOCOL IV ; Start 12/21/18 at 16:00 Ondansetron HCl (Zofran Inj) 4 mg Q6H PRN IV NAUSEA/VOMITING Last administered on 12/27/18 20:52; Admin Dose 4 MG; Start 12/21/18 at 16:00 Acetaminophen (Tylenol Tab) 650 mg Q6H PRN PO .PAIN 1-3 OR TEMP Last administered on 12/25/18 10:35; Admin Dose 650 MG; Start 12/21/18 at 16:00 Heparin Sodium (Porcine) (Heparin (5000 Units/1ml)) 5,000 unit Q8 SC Last administered on 01/01/19 06:00; Admin Dose 5,000 UNIT; Start 12/21/18 at 22:00 Albuterol/ Ipratropium (Duoneb) 3 ml Q2H RESP THERAPY PRN HHN sob Last administered on 12/25/18 17:01; Admin Dose 3 ML; Start 12/21/18 at 16:00 Guaifenesin (Robitussin Liquid Cup) 200 mg Q4H PRN PO cough Last administered on 12/25/18 09:53; Admin Dose 200 MG; Start 12/21/18 at 16:00 Fluticasone/ Vilanterol (Breo Ellipta 100-25 Mcg Inh) 1 inh DAILY INH Last administered on 12/30/18 08:49; Admin Dose 1 INH; Start 12/22/18 at 09:00 Nystatin (Nystatin Powder) 1 applic BID TOP Last administered on 01/01/19 08:49; Admin Dose 1 APPLIC; Start 12/21/18 at 21:00 Sodium Chloride (Nacl) 1 gm TID PO Last administered on 12/31/18 20:14; Admin Dose 1 GM; Start 12/22/18 at 13:00 Famotidine (Pepcid) 20 mg BID PO Last administered on 12/31/18 20:15; Admin Dose 20 MG; Start 12/24/18 at 21:00 Polyethylene Glycol (Miralax) 17 gm BID PO Last administered on 12/31/18 20:14; Admin Dose 17 GM; Start 12/24/18 at 21:00 Hydralazine HCl (Apresoline) 10 mg Q6H PRN IV SBP>160 Last administered on 12/31/18at 00:23; Admin Dose 10 MG; Start 12/24/18 at 17:00 Bisacodyl (Dulcolax) 10 mg DAILY PRN PO CONSTIPATION Last administered on 12/26/18at 15:43; Admin Dose 10 MG; Start 12/25/18 at 12:00 Methylprednisolone Sodium Succinate (Solu-Medrol) 40 mg Q8 IV Last administered on 01/01/19at 06:00; Admin Dose 40 MG; Start 12/25/18 at 14:00 Acetylcysteine (Mucomyst) 2 ml Q6H RESP THERAPY NEB Last administered on 01/01/19 08:08; Admin Dose 2 ML; Start 12/25/18 at 14:00 Albuterol/ Ipratropium (Duoneb) 3 ml Q4H RESP THERAPY HHN Last administered on 01/01/19 13:00; Admin Dose 3 ML; Start 12/25/18 at 21:00 Tramadol HCl (Ultram) 50 mg Q6H PRN PO MODERATE PAIN LEVEL 4-6 Last administered on 12/29/18 19:57; Admin Dose 50 MG; Start 12/26/18 at 22:30 Lorazepam (Ativan) 1 mg Q4 PRN PO ANXIETY; Start 12/26/18 at 22:30 Acetaminophen (Tylenol Tab) 650 mg Q6H PRN PO MILD PAIN(1-3)OR ELEVATED TEMP; Start 12/26/18 at 22:30 Ketorolac Tromethamine (Toradol) 15 mg Q6H PRN IV PAIN Last administered on 12/31/18at 14:27; Admin Dose 15 MG; Start 12/30/18 at 05:30; Stop 01/02/19 at 05:29 Lorazepam (Ativan) 0.5 mg Q4 PRN IV Agitation Last administered on 01/01/19 08:46; Admin Dose 0.5 MG; Start 12/31/18 at 08:00 Vancomycin HCl (Vanco Iv Per Pharmacy) VANCOMYCIN PER PHARMACY PER PROTOCOL XX ; Start 12/31/18 at 15:00 Meropenem/Sodium Chloride 50 ml @ 100 mls/hr Q12 IVPB Last administered on 01/01/19at 09:20; Admin Dose 100 MLS/HR; Start 12/31/18 at 21:00 Vancomycin/Sodium Chloride 250 ml @ 125 mls/hr Q12H IVPB Last administered on 01/01/19at 04:14; Admin Dose 125 MLS/HR; Start 01/01/19 at 05:00 Miscellaneous Information (*Rx Drug Level Order Reminder*) HILARIA PERALTA 0400 ONCE XX ; Start 01/02/19 at 04:00; Stop 01/02/19 at 04:01 ZORAIDA OLSON NP Jan 01, 2019 13:34
--- NOTE | 2019-01-01 13:41 | CONS ---
Consultation Date/Type/Reason Admit Date/Time Dec 21, 2018 at 11:58 Date/Time of Note DATE: 01/01/19 TIME: 13:39 Hx of Present Illness Chart reviewed patient examined and spoke with pts best friend.. TEDDY is currently n the process of filling out Hospice paper work. I have examined patient and reviewed medical records and will dictated formal consultation.... Past Medical History Home Meds Reported Medications Albuterol Sulfate (Proair Respiclick) 90 Mcg Aer.pow.ba, 1 PUFF INHALATION Q4 PRN for SHORTNESS OF BREATH, #1 BOTTLE 12/21/18 Gabapentin* (Gabapentin*) 600 Mg Tablet, 600 MG PO TID, #90 TAB 12/21/18 Tiotropium [place]* (Spiriva*) 18 Mcg Cap.w.dev, 1 CAP INHALATION DAILY, #30 CAP 12/21/18 Spironolactone* (Aldactone*) 25 Mg Tablet, 25 MG PO DAILY, #30 TAB 12/21/18 Losartan Potassium* (Losartan Potassium*) 100 Mg Tablet, 100 MG PO DAILY, TAB 12/21/18 Metoprolol Succinate* (Toprol XL*) 50 Mg Tab.er.24h, 50 MG PO DAILY, #30 TAB 12/21/18 Alendronate Sodium* (Fosamax*) 70 Mg Tablet, 70 MG PO Q7D, #4 TAB 12/21/18 Medications Current Medications Gabapentin (Neurontin) 600 mg TID PO Last administered on 12/31/18at 20:15; Admin Dose 600 MG; Start 12/21/18 at 21:00 Losartan Potassium (Cozaar) 100 mg DAILY PO Last administered on 12/30/18at 08:48; Admin Dose 100 MG; Start 12/22/18 at 09:00 Metoprolol Succinate (Toprol Xl) 50 mg DAILY PO Last administered on 12/30/18at 08:49; Admin Dose 50 MG; Start 12/22/18 at 09:00 Spironolactone (Aldactone) 25 mg DAILY PO Last administered on 12/30/18at 08:49; Admin Dose 25 MG; Start 12/22/18 at 09:00 IV Flush (NS 3 ml) 3 ml PER PROTOCOL IV ; Start 12/21/18 at 16:00 Ondansetron HCl (Zofran Inj) 4 mg Q6H PRN IV NAUSEA/VOMITING Last administered on 12/27/18 20:52; Admin Dose 4 MG; Start 12/21/18 at 16:00 Acetaminophen (Tylenol Tab) 650 mg Q6H PRN PO .PAIN 1-3 OR TEMP Last administered on 12/25/18 10:35; Admin Dose 650 MG; Start 12/21/18 at 16:00 Heparin Sodium (Porcine) (Heparin (5000 Units/1ml)) 5,000 unit Q8 SC Last administered on 01/01/19 06:00; Admin Dose 5,000 UNIT; Start 12/21/18 at 22:00 Albuterol/ Ipratropium (Duoneb) 3 ml Q2H RESP THERAPY PRN HHN sob Last administered on 12/25/18 17:01; Admin Dose 3 ML; Start 12/21/18 at 16:00 Guaifenesin (Robitussin Liquid Cup) 200 mg Q4H PRN PO cough Last administered on 12/25/18 09:53; Admin Dose 200 MG; Start 12/21/18 at 16:00 Fluticasone/ Vilanterol (Breo Ellipta 100-25 Mcg Inh) 1 inh DAILY INH Last administered on 12/30/18 08:49; Admin Dose 1 INH; Start 12/22/18 at 09:00 Nystatin (Nystatin Powder) 1 applic BID TOP Last administered on 01/01/19 08:49; Admin Dose 1 APPLIC; Start 12/21/18 at 21:00 Sodium Chloride (Nacl) 1 gm TID PO Last administered on 12/31/18 20:14; Admin Dose 1 GM; Start 12/22/18 at 13:00 Famotidine (Pepcid) 20 mg BID PO Last administered on 12/31/18 20:15; Admin Dose 20 MG; Start 12/24/18 at 21:00 Polyethylene Glycol (Miralax) 17 gm BID PO Last administered on 12/31/18 20:14; Admin Dose 17 GM; Start 12/24/18 at 21:00 Hydralazine HCl (Apresoline) 10 mg Q6H PRN IV SBP>160 Last administered on 12/31/18 00:23; Admin Dose 10 MG; Start 12/24/18 at 17:00 Bisacodyl (Dulcolax) 10 mg DAILY PRN PO CONSTIPATION Last administered on 12/26/18 15:43; Admin Dose 10 MG; Start 12/25/18 at 12:00 Methylprednisolone Sodium Succinate (Solu-Medrol) 40 mg Q8 IV Last administered on 01/01/19 06:00; Admin Dose 40 MG; Start 12/25/18 at 14:00 Acetylcysteine (Mucomyst) 2 ml Q6H RESP THERAPY NEB Last administered on 01/01/19 08:08; Admin Dose 2 ML; Start 12/25/18 at 14:00 Albuterol/ Ipratropium (Duoneb) 3 ml Q4H RESP THERAPY HHN Last administered on 01/01/19 13:00; Admin Dose 3 ML; Start 12/25/18 at 21:00 Tramadol HCl (Ultram) 50 mg Q6H PRN PO MODERATE PAIN LEVEL 4-6 Last administere d on 12/29/18at 19:57; Admin Dose 50 MG; Start 12/26/18 at 22:30 Lorazepam (Ativan) 1 mg Q4 PRN PO ANXIETY; Start 12/26/18 at 22:30 Acetaminophen (Tylenol Tab) 650 mg Q6H PRN PO MILD PAIN(1-3)OR ELEVATED TEMP; Start 12/26/18 at 22:30 Ketorolac Tromethamine (Toradol) 15 mg Q6H PRN IV PAIN Last administered on 12/31/18 14:27; Admin Dose 15 MG; Start 12/30/18 at 05:30; Stop 01/02/19 at 05:29 Lorazepam (Ativan) 0.5 mg Q4 PRN IV Agitation Last administered on 01/01/19 08:46; Admin Dose 0.5 MG; Start 12/31/18 at 08:00 Vancomycin HCl (Vanco Iv Per Pharmacy) VANCOMYCIN PER PHARMACY PER PROTOCOL XX ; Start 12/31/18 at 15:00 Meropenem/Sodium Chloride 50 ml @ 100 mls/hr Q12 IVPB Last administered on 01/01/19 09:20; Admin Dose 100 MLS/HR; Start 12/31/18 at 21:00 Vancomycin/Sodium Chloride 250 ml @ 125 mls/hr Q12H IVPB Last administered on 01/01/19at 04:14; Admin Dose 125 MLS/HR; Start 01/01/19 at 05:00 Miscellaneous Information (*Rx Drug Level Order Reminder*) HILARIA PERALTA 0400 ONCE XX ; Start 01/02/19 at 04:00; Stop 01/02/19 at 04:01 Allergies: Coded Allergies: Penicillins (Verified Allergy, Severe, RASH, 12/21/18) codeine (Verified Allergy, Unknown, 12/21/18) Social History Alcohol Use: other (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) Smoking Status: Never smoker Exam/Review of Systems Exam Vitals Vital Signs Date Temp Pulse Resp B/P (MAP) Pulse Ox O2 O2 Flow FiO2 Time Delivery Rate 01/01/19 97 100 100 12:56 01/01/19 98.2 25 132/64 11:15 (86) 01/01/19 Non 15.0 08:09 Rebreather Mask Intake and Output 12/31/18 12/31/18 01/01/19 1515:00 23:00 07:00 IntakeIntake Total 50 ml OutputOutput Total 300 ml 100 ml BalanceBalance 50 ml -300 ml -100 ml Results Result Diagram: 12/31/18 0601 12/31/18 0602 Medications Medication Current Medications Gabapentin (Neurontin) 600 mg TID PO Last administered on 12/31/18at 20:15; Admin Dose 600 MG; Start 12/21/18 at 21:00 Losartan Potassium (Cozaar) 100 mg DAILY PO Last administered on 12/30/18at 08:48; Admin Dose 100 MG; Start 12/22/18 at 09:00 Metoprolol Succinate (Toprol Xl) 50 mg DAILY PO Last administered on 12/30/18at 08:49; Admin Dose 50 MG; Start 12/22/18 at 09:00 Spironolactone (Aldactone) 25 mg DAILY PO Last administered on 12/30/18at 08:49; Admin Dose 25 MG; Start 12/22/18 at 09:00 IV Flush (NS 3 ml) 3 ml PER PROTOCOL IV ; Start 12/21/18 at 16:00 Ondansetron HCl (Zofran Inj) 4 mg Q6H PRN IV NAUSEA/VOMITING Last administered on 12/27/18at 20:52; Admin Dose 4 MG; Start 12/21/18 at 16:00 Acetaminophen (Tylenol Tab) 650 mg Q6H PRN PO .PAIN 1-3 OR TEMP Last admini stered on 12/25/18 10:35; Admin Dose 650 MG; Start 12/21/18 at 16:00 Heparin Sodium (Porcine) (Heparin (5000 Units/1ml)) 5,000 unit Q8 SC Last administered on 01/01/19 06:00; Admin Dose 5,000 UNIT; Start 12/21/18 at 22:00 Albuterol/ Ipratropium (Duoneb) 3 ml Q2H RESP THERAPY PRN HHN sob Last admin istered on 12/25/18 17:01; Admin Dose 3 ML; Start 12/21/18 at 16:00 Guaifenesin (Robitussin Liquid Cup) 200 mg Q4H PRN PO cough Last administered on 12/25/18 09:53; Admin Dose 200 MG; Start 12/21/18 at 16:00 Fluticasone/ Vilanterol (Breo Ellipta 100-25 Mcg Inh) 1 inh DAILY INH Last administered on 12/30/18 08:49; Admin Dose 1 INH; Start 12/22/18 at 09:00 Nystatin (Nystatin Powder) 1 applic BID TOP Last administered on 01/01/19 08:49; Admin Dose 1 APPLIC; Start 12/21/18 at 21:00 Sodium Chloride (Nacl) 1 gm TID PO Last administered on 12/31/18 20:14; Admin Dose 1 GM; Start 12/22/18 at 13:00 Famotidine (Pepcid) 20 mg BID PO Last administered on 12/31/18 20:15; Admin Dose 20 MG; Start 12/24/18 at 21:00 Polyethylene Glycol (Miralax) 17 gm BID PO Last administered on 12/31/18 20:14; Admin Dose 17 GM; Start 12/24/18 at 21:00 Hydralazine HCl (Apresoline) 10 mg Q6H PRN IV SBP>160 Last administered on 12/31/18 00:23; Admin Dose 10 MG; Start 12/24/18 at 17:00 Bisacodyl (Dulcolax) 10 mg DAILY PRN PO CONSTIPATION Last administered on 12/26/18 15:43; Admin Dose 10 MG; Start 12/25/18 at 12:00 Methylprednisolone Sodium Succinate (Solu-Medrol) 40 mg Q8 IV Last administered on 01/01/19 06:00; Admin Dose 40 MG; Start 12/25/18 at 14:00 Acetylcysteine (Mucomyst) 2 ml Q6H RESP THERAPY NEB Last administered on 01/01/19at 08:08; Admin Dose 2 ML; Start 12/25/18 at 14:00 Albuterol/ Ipratropium (Duoneb) 3 ml Q4H RESP THERAPY HHN Last administered on 01/01/19at 13:00; Admin Dose 3 ML; Start 12/25/18 at 21:00 Tramadol HCl (Ultram) 50 mg Q6H PRN PO MODERATE PAIN LEVEL 4-6 Last administered on 12/29/18at 19:57; Admin Dose 50 MG; Start 12/26/18 at 22:30 Lorazepam (Ativan) 1 mg Q4 PRN PO ANXIETY; Start 12/26/18 at 22:30 Acetaminophen (Tylenol Tab) 650 mg Q6H PRN PO MILD PAIN(1-3)OR ELEVATED TEMP; Start 12/26/18 at 22:30 Ketorolac Tromethamine (Toradol) 15 mg Q6H PRN IV PAIN Last administered on 12/31/18at 14:27; Admin Dose 15 MG; Start 12/30/18 at 05:30; Stop 01/02/19 at 05:29 Lorazepam (Ativan) 0.5 mg Q4 PRN IV Agitation Last administered on 01/01/19at 08:46; Admin Dose 0.5 MG; Start 12/31/18 at 08:00 Vancomycin HCl (Vanco Iv Per Pharmacy) VANCOMYCIN PER PHARMACY PER PROTOCOL XX ; Start 12/31/18 at 15:00 Meropenem/Sodium Chloride 50 ml @ 100 mls/hr Q12 IVPB Last administered on at 09:20; Admin Dose 100 MLS/HR; Start 12/31/18 at 21:00 Vancomycin/Sodium Chloride 250 ml @ 125 mls/hr Q12H IVPB Last administered on 01/01/19at 04:14; Admin Dose 125 MLS/HR; Start 01/01/19 at 05:00 Miscellaneous Information (*Rx Drug Level Order Reminder*) VANCO TR 0400 ONCE XX ; Start 7/17/19 at 04:00; Stop 01/02/19 at 04:01 ALFRED IVEY Jan 01, 2019 13:41
[2019-01-01] MEDS ORDERED: ALBUTEROL/IPRATROPIUM (NEB) 3 ML AMP HHN PRN (17:30)
[2019-01-01] MEDS ORDERED: ONDANSETRON 4 MG INJ IV PRN (17:30)
[2019-01-01] MEDS ORDERED: ATROPINE 1% 5 ML OPH SL PRN (17:30)
[2019-01-01] MEDS: morphine 2 MG INJ IV PRN ×2 (18:10→20:42)
--- NOTE | 2019-01-01 22:09 | DS ---
Date/Time of Note Date/Time of Note DATE: 01/01/19 TIME: 22:01 Discharge Summary Admission/Discharge Info Admit Date/Time Dec 21, 2018 at 11:58 Discharge Date/Time Patient Condition: Guarded Hospital Course This is an 88-year-old female with history of asthma, flu B, hypertension, neuropathy, allergies, came to the hospital with reports of decreased breath. Patient reports that she had been having cough for the past 3 months but notably increased shortness of breath more notable on exertion for the past week. Associated with that she also had decreased poor oral intake. She denies any chest pain. She denies any subjective fevers. Due to worsening of breathing she came to the hospital for further evaluation. She did have chest x-ray done with Findings consistent with pneumonia. Patient did have worse breathing during the course of stay. She was noted with acute respiratory failure. Hypoxic and hypercapnic. This was suspect multifactorial with COPD exacerbation and pneumonia. We did start her on CPT as well as breathing treatments. Granite Polisher was consulted to help with the pulmonary regimen. Despite medical optimization, her respiratory status declined and she was placed on BiPAP for period of time. Family was notified of her deteriorating condition as well. As her condition worsen we did discuss goals of care with the family. We did get palliative care physician to follow as well. After care team discussion and after review of patient's requests, patient was DNR. It was decided for patient to go to hospice. Further care and treatment was transferred to the hospice care team. Discussed case with Dr. Green [facility] Reported Medications Albuterol Sulfate (Proair Respiclick) 90 Mcg Aer.pow.ba, 1 PUFF INHALATION Q4 PRN for SHORTNESS OF BREATH, #1 BOTTLE 12/21/18 Gabapentin* (Gabapentin*) 600 Mg Tablet, 600 MG PO TID, #90 TAB 12/21/18 Tiotropium [place]* (Spiriva*) 18 Mcg Cap.w.dev, 1 CAP INHALATION DAILY, #30 CAP 12/21/18 Spironolactone* (Aldactone*) 25 Mg Tablet, 25 MG PO DAILY, #30 TAB 12/21/18 Losartan Potassium* (Losartan Potassium*) 100 Mg Tablet, 100 MG PO DAILY, TAB 12/21/18 Metoprolol Succinate* (Toprol XL*) 50 Mg Tab.er.24h, 50 MG PO DAILY, #30 TAB 12/21/18 Alendronate Sodium* (Fosamax*) 70 Mg Tablet, 70 MG PO Q7D, #4 TAB 12/21/18 Primary Care Provider Not On Staff Doctor Time spent on discharge: > 30 minutes ARLETTE CHRISTY NP Jan 01, 2019 22:09
[2019-01-02] MEDS: LORAZEPAM 2 MG INJ IV PRN ×3 (01:24→09:38)
[2019-01-02 01:30] VITALS: BP 174/95; PULSE 108; RESP 28
[2019-01-02] MEDS: ALBUTEROL/IPRATROPIUM (NEB) 3 ML AMP HHN SCH ×3 (02:09→08:56)
[2019-01-02] MEDS: morphine 2 MG INJ IV PRN ×2 (05:46→07:48)
--- NOTE | 2019-01-02 07:14 | HP ---
DATE OF ADMISSION: 12/21/2018 REASON FOR REQUEST: Ongoing respiratory failure, severe hypoxia, extensive left-sided pneumonia with pleural effusion. HISTORY OF PRESENT ILLNESS: The patient is an 88-year-old female with history of asthma, n europathy, hypertension, allergic rhinitis, nonsmoker, status post right femur fracture, status post surgery who presented to [facility] on 12/21/2018 with respiratory failure and shor tness of breath. During her stay, she was seen by multiple physicians including the electrician marine jovanni tovar the infectious disease specialist. She was placed on antibiotics, steroids, breathing treatment jovanni tovar required the BiPAP. Unfortunately, in the last few days or so respiratory status has worsened. [place]re [place] required continuous BiPAP as chest x-ray yesterday showed complete opacification of the left lung. Today, she is slightly better but still has significant left effusion and pneumonia. In addition, w emili count has worsened and patient has been doing poorly. The patient is DNR and hospice request wa s made to keep the patient comfortable as discussed by her primary team and pulmonology recommendatio ns. Upon evaluation, the patient is on BiPAP. Case discussed with respiratory therapy since her oxy gen dropped to the 60s once BiPAP is off. The patient is uncomfortable with the BiPAP machine in [facility], complaining of thirst. The patient did receive Ativan earlier to make sure she is comfortable. PAST MEDICAL HISTORY: Asthma, osteoarthritis, neuropathy, hypertension. SURGICAL HISTORY: Right hip surgery. ALLERGIES 1. PENICILLIN. 2. CODEINE. SOCIAL HISTORY: No history of tobacco, alcohol or IV drug use. FAMILY HISTORY: The patient has a power of relief worker. Her name is Nadri, phone number [phone]. The patient does have a friend is at bedside or longstanding friends for many years. She is aware o f her ongoing condition. PHYSICAL EXAMINATION: VITAL SIGNS: Temperature 98.2, pulse 77, respirations 25, blood pressure 132/64, saturation 100% FIO 2 via BiPAP. GENERAL: The patient's BiPAP is in place, weak looking. CARDIOVASCULAR: S1 and S2. LUNGS: Decreased bilaterally, notably on the left. ABDOMEN: Soft, nontender. EXTREMITIES: No significant edema of the lower extremities. LABORATORY DATA: White count yesterday was 22.6, hemoglobin 14.7, hematocrit 47, platelet count 396, neutrophil 7%, lymphocyte 3%. Chemistry: Sodium 144, potassium 3.9, chloride 98, bicarbonate is 40 , BUN 34, creatinine 0.68 and glucose 153. IMAGING DATA: Chest x-ray dated today shows calcified atherosclerosis in the aorta, interval improve ment in the aeration of the left upper lobe, perihilar left upper lobe infiltrates remain, stable con solidation of the left, mid and lower lung with moderate to large left pleural effusion, mild interva l increase in perihilar infiltrates in the right lung. CURRENT MEDICATIONS: 1. Vancomycin dose per pharmacy. 2. Merrem IV q.12h, dose per pharmacy. 3. Ativan 0.5 IV q.4 p.r.n. 4. Toradol p.r.n. 5. Ultram p.r.n. 6. Tylenol p.r.n. 7. DuoNeb every 4 hours. 8. Solu-Medrol 40 IV q.8. 9. Mucomyst q.6. 10. Dulcolax p.r.n. 11. Pepcid 20 b.i.d. 12. MiraLax 17 grams b.i.d. 13. Hydralazine p.r.n. 14. Sodium chloride 1 gram t.i.d. 15. Cozaar 100 daily. 16. ____ mg daily. 17. Aldactone 25 daily. 18: Breo Ellipta daily. 19. Heparin 5000 q. 20. Neurontin 600 t.i.d. 21. Nystatin b.i.d. topical. 22. Zofran. 23. Robitussin p.r.n. ASSESSMENT: This is an 88-year-old female with history of asthma who presented with acute respirator y failure. HOSPITAL COURSE: The patient has been treated for pneumonia, CHF, asthma exacerbation. Despite the above treatment, her condition has worsened. 1. Respiratory failure requiring continuous BiPAP. The patient wants to be kept comfortable. The p atient is hospice appropriate due to her guarded condition, extensive pneumonia, and pleural effusion . The patient is with poor oral intake and overall decline and weakness. We will discuss with Nadir , her decision maker. The patient is DNR. Again, patient is hospice appropriate. Goal is to keep c omfortable. The patient will be placed on morphine, Ativan, oxygen supplements, breathing treatments as needed to make sure she is comfortable at all times. 3. Recent extensive pneumonia, status post treatment since admission with no improvement. Unfortuna tely, her condition has worsened. The patient wants to be kept comfortable. The patient is to be ad mitted on the hospice care. 4. The patient is DNR. 5. I left a message with Nadir and I spoke with patient's friend at bedside who are aware already of patient's overall condition. We will coordinate care with power of relief worker, patient, nursing staff , hospice staff, etc. We will make sure patient is comfortable at all times. Dictated By: ROSA DAY/NTS Conf#: [id number] DID#: [id number] CC: AMIRA ROCKWELL MD;*[facility]*
[2019-01-02 07:34] VITALS: BP 153/95; PULSE 70; RESP 24
--- NOTE | 2019-01-03 03:15 | DS ---
DATE OF ADMISSION: 12/21/2018 DATE OF DISCHARGE: 01/02/2019 The patient was admitted to hospice on 01/01/2019, the patient on 01/02/2019. REASON FOR ADMISSION: Acute respiratory failure, extensive pneumonia. HOSPITAL COURSE: The patient is an 88-year-old female with history of asthma, neuropathy, hypertension, rhinitis, right hip fracture, status post surgery, who presented to [facility] on 12/21/2018 with respiratory failure and shortness of breath. HOSPITAL COURSE: The patient received antibiotics, steroids, breathing treatment and unfortunately h er condition has worsened to the point that she required BiPAP. The patient was made DNR, ultimately patient did not want to suffer. Her chest x-ray showed almost complete opacification of the lungs. There was some improvement, but patient continues to deteriorate to the point she could not eat, had to be placed on BiPAP on a continuous bases. Upon discussion with her DPOA, Nadir, it was decided t o keep her comfortable and to respect the patient's wishes. The patient was made DNR and admitted to hospice care. During her stay in the hospice all medication was discontinued. The patient was kep t comfortable with morphine, Ativan, atropine, breathing treatment and O2 support. The patient was k ept comfortable throughout. The patient unfortunately and was pronounced on 11:13 a.m. on 01/02/2019. FINAL DIAGNOSES: 1. Acute respiratory failure. 2. Multifocal pneumonia. 3. Hypoxia. 4. Pleural effusion. 5. Hypertension. 6. Congestive heart failure. 7. Neuropathy. 8. History of asthma. Again, the patient . This patient was under hospice care. Dictated By: ROSA DAY/RUSSEL Conf#: [id number] DID#: [id number] CC: AMIRA ROCKWELL MD;*[facility]*
== END 2019-01-02 10:56 | disposition expired | DRG 193 ==
LOC: E/R 09:16 → 2NE 11:58 → TEL 12-25 18:15 → 2NE 01-02 01:06
PROVIDERS: ADMIT Internal Medicine; ATTEND Internal Medicine
PROC: 5A09557 Assistance with Respiratory Ventilation, Greater than 96 Consecutive Hours, Continuous Positive Airway Pressure (ICD-10-PCS; principal; 2018-12-25)
DX: J18.9 Pneumonia, unspecified organism (principal); J96.01 Acute respiratory failure with hypoxia; J96.02 Acute respiratory failure with hypercapnia; J44.0 Chronic obstructive pulmonary disease with (acute) lower respiratory infection; E87.1 Hypo-osmolality and hyponatremia; J44.1 Chronic obstructive pulmonary disease with (acute) exacerbation; J20.9 Acute bronchitis, unspecified; G62.9 Polyneuropathy, unspecified; Z66 Do not resuscitate; I11.0 Hypertensive heart disease with heart failure; I50.9 Heart failure, unspecified; M81.0 Age-related osteoporosis without current pathological fracture; Z51.5 Encounter for palliative care
CPT/HCPCS: 36415; 36600; 71045; 71275; 80048; 80053; 80061; 80202; 81001; 82803; 82962; 83036; 83605; 83735; 83880; 84100; 84436; 84443; 84479; 84484; 85025; 87070; 87086; 93005; 93306; 94640; 94660; 94664; 94667; 94668; 96365; 96367; 97110; 97162; 97530; A4310; J0360; J0456; J0692; J0696; J1100; J1630; J1644; J1885; J1940; J1956; J2060; J2185; J2270; J2405; J2920; J2930; J3370; J7030; J7040; J7050; Q9967